=== PATIENT | female | born 1955 | race Hispanic/Latino ===

== ENCOUNTER 2020-02-01 09:15 | Emergency (ER) | payer OTHER, SELFPAY ==
--- NOTE | 2020-02-01 09:48 | RAD REPORT ---
EXAM DESCRIPTION: CT - Ct Stroke Brain Wo Cont - 02/01/2020 9:23 am CLINICAL HISTORY: right hemiplegia Headache, drowsiness, CVA symptomology COMPARISON: No comparisons TECHNIQUE: All CT scans are performed using dose optimization technique as appropriate and may inclu de automated exposure control or mA/KV adjustment according to patient size. FINDINGS: No intracranial hemorrhage, hydrocephalus or extra-axial fluid collection.No areas of brai n edema or evidence of midline shift. The paranasal sinuses and mastoids are clear. The calvarium is intact. IMPRESSION: No acute intracranial abnormality. If there is continued clinical concern for CVA, MR imaging of the brain would be recommended.
[2020-02-01 09:50] LABS: Protime INR 1.03
--- NOTE | 2020-02-01 09:52 | RAD REPORT ---
EXAM DESCRIPTION: CT - Head angio - 02/01/2020 9:38 am CLINICAL HISTORY: right corey Headache, drowsiness COMPARISON: Ct Stroke Brain Wo Cont dated 02/01/2020 TECHNIQUE: CT angiography of the head was performed with MIPs. All CT scans are performed using dose optimization technique as appropriate and may include automated exposure control or mA/KV adjustment according to patient size. FINDINGS: No evidence of aneurysm is detected. No flow-limiting stenosis or vascular malformation id entified. Antegrade flow is seen in the vertebral arteries. The vertebral arteries are codominant. The visualized dural venous sinuses are patent. IMPRESSION: No significant flow abnormality is detected.
[2020-02-01 09:53] LABS: Absolute Lymphocytes (CBC) 1.6 K/uL (0.7-4.9); Basophils % 0.7 % (0-1.3); Hematocrit 39.3 % (36.0-45.0); Lymphocytes % 25.2 % (15.3-44.8); MPV 10.3 fL (7.6-11.3)
--- NOTE | 2020-02-01 09:55 | RAD REPORT ---
EXAM DESCRIPTION: CT - Neck Angio - 02/01/2020 9:42 am CLINICAL HISTORY: right corey Headache, drowsiness COMPARISON: SOFT TISSUE NECK W CONTRAST dated 11/04/2014 TECHNIQUE: CT angiography of the neck vessels was performed with MIPs. All CT scans are performed using dose optimization technique as appropriate and may include automated exposure control or mA/KV adjustment according to patient size. FINDINGS: A motion degraded study is submitted. A left aortic arch is identified with normal three vessel configuration of the great vessels. No significant flow abnormality is seen of the common carotid bilaterally. Moderate narrowing is seen at the origin of the right external carotid artery. Mild plaquing is seen involving both proximal internal carotid arteries without hemodynamically signi ficant stenosis identified. Normal flow is seen within both vertebral arteries. Mild to moderate lower cervical degenerative changes are present with kyphosis. IMPRESSION: No significant carotid stenosis identified.
[2020-02-01 09:57] LABS: Albumin 3.3 g/dL (3.4-5.0); Bilirubin Total 0.3 mg/dL (0.2-1.0); Potassium 3.9 mmol/L (3.5-5.1); Protein, Total 7.6 g/dL (6.4-8.2)
[2020-02-01] MEDS ORDERED: TENECTEPLASE 50 MG/10 ML VIAL IV ONE (10:01)
[2020-02-01] MEDS ORDERED: NA CHLORIDE 0.9% 250 ML ONE (10:01)
[2020-02-01] MEDS ORDERED: ALTEPLASE 100 ML IV ONE (10:03)
--- NOTE | 2020-02-01 11:07 | ER ---
Nurse's Notes [facility] Name: Abigail Schaeffer Age: 64 yrs Sex: Female : 1955 Arrival Date: 02/01/2020 Time: 09:17 Bed 5 Private MD: Diagnosis: Acute Ischemic Stroke Presentation: 01/31 09:10 Chief complaint: EMS states: 30 minutes ago, coworkers noticed that patient's face was ss drooping on the R side and she began to slur her words. On arrival, pt has R sided facial droop, slurred speech and R sided weakness. Pt denies pain. Coronavirus screen: Proceed with normal triage. Patient denies a cough. Patient denies shortness of breath or difficulty breathing. Patient denies measured and/or subjective temperature greater than 100.4F prior to today's visit. Patient denies travel on a cruise ship or to a country the [facility]NOTE 3] currently lists as an affected area. Patient denies contact with known and/or suspected case of COVID-19. Ebola Screen: Patient denies exposure to infectious person. Patient denies travel to an Ebola-affected area in the 21 days before illness onset. Initial Sepsis Screen: Does the patient meet any 2 criteria? No. Patient's initial sepsis screen is negative. Does the patient have a suspected source of infection? No. Patient's initial sepsis screen is negative. Risk Assessment: Do you want to hurt yourself or someone else? Patient reports no desire to harm self or others. Onset of symptoms was February 01, 2020 at 08:40. 09:10 Method Of Arrival: EMS: [facility] 09:10 Acuity: AUGUSTO 1 18:05 Care prior to arrival: IV initiated. 20 GA, in the right antecubital area, Glucose ss check: 212. Historical: - Allergies: 09:45 Codeine; ss - Home Meds: 09:45 Insulin [Active]; ss - PMHx: 09:45 Diabetes - NIDDM; Hyperlipidemia; Hypertension; ss - PSHx: 09:45 ; ss - Immunization history:: Adult Immunizations up to date. - Social history:: Smoking status: Patient denies any tobacco usage or history of. Screenin:20 Patient has been NPO before screening. The patient exhibits slurred or garbled speech. ss The patient is exhibiting difficulty speaking. The patient is exhibiting difficulty understanding words. Yes, but is becoming more difficult The patient failed the bedside swallow screening. The patient will be kept NPO until cleared by Speech Therapy or Physician. Provider notified of bedside swallow screening results: Beto Garvey MD. Fall Risk No fall in past 12 months (0 pts). Secondary diagnosis (15 points) CVA, IV access (20 points). Ambulatory Aid- None/Bed Rest/Nurse Assist (0 pts). Gait- Normal/Bed Rest/Wheelchair (0 pts) Mental Status- Oriented to own ability (0 pts). 09:42 Abuse screen: Denies threats or abuse. Denies injuries from another. Nutritional ss screening: No deficits noted. Tuberculosis screening: Never had TB. VAN Screening: Arm Drift: Severe drift. Visual Disturbance: No visual disturbance noted. Aphasia: Neglect: No neglect noted. Assessment: 09:10 General: Appears uncomfortable, well groomed, Behavior is calm, cooperative, Denies ss fever, feeling ill, fatigue, chills. Pain: Denies pain. Neuro: Level of Consciousness is awake, alert, obeys commands, Oriented to person, place, time, situation, Youth Director are weak on right Weakness in left in right arm(s) Speech is slurred, Facial droop on right, Pupils are PERRLA. Cardiovascular: Heart tones S1 S2 present Capillary refill < 3 seconds is brisk in bilateral fingers Patient's skin is warm and dry. Respiratory: Airway is patent Respiratory effort is even, unlabored, Respiratory pattern is regular, symmetrical, Denies shortness of breath pain with respiration, pain with cough, pain with movement. GI: Patient currently denies abdominal pain, diarrhea, nausea, vomiting. : No signs and/or symptoms were reported regarding the genitourinary system. EENT: Oral mucosa is moist. Derm: Skin is intact, is healthy with good turgor, Skin is dry, Skin is pink, warm \T\ dry. normal. Musculoskeletal: Denies weakness in right arm and right leg. 09:42 Reassessment: Back from CT now. PT denies pain. Respirations even and unlabored. PT ss reports that she is having trouble swelling, but is not having trouble breathing. PT remains NPO. 10:10 Reassessment: NIHSS 11. Neuro: Level of Consciousness is awake, alert, Youth Director are weak ss on right Weakness in left in right Speech is slurred, Facial droop on right. 10:25 Reassessment: NIHSS 6. ss 10:40 Reassessment: NIHSS 3. General:. Respiratory: Airway is patent Respiratory effort is ss even, unlabored, Respiratory pattern is regular, symmetrical. Derm: Skin is pink, warm \T\ dry. normal. 11:00 Reassessment: [employer] at bedside. Report given NIHSS 3. Pt is smiling, states ss feeling better. Vital Signs: 09:25 Weight 56.25 kg (M); hb 09:43 BP 161 / 76; Pulse 84; Resp 16; Temp 98.2(TE); Pulse Ox 99% on R/A; Pain 0/10; ss 10:16 BP 150 / 73; Pulse 76; Resp 17; Pulse Ox 99% on R/A; Pain 0/10; ss 10:25 BP 168 / 72; Pulse 70; Resp 16; Pulse Ox 100% on R/A; Pain 0/10; ss NIH Stroke Scale Scores: 10:00 NIHSS Score: 10 ps1 10:23 NIHSS Score: 11 ss ED Course: 09:17 Patient arrived in ED. hb 09:17 Beto Garvey MD is Attending Physician. ps1 09:20 Patient has correct armband on for positive identification. Placed in gown. Bed in low ss position. Call light in reach. Side rails up X2. 09:24 Inserted saline lock: 18 gauge in right antecubital area, using aseptic technique. hb Blood collected. 09:24 Maintain EMS IV. Dressing intact. Good blood return noted. Site clean \T\ dry. Gauge \T\ hb site: 18 gauge in R AC. 09:25 CT Stroke Brain w/o Contrast In Process Unspecified. EDMS 09:43 Karla Merrill, CHERYL is Primary Nurse. ss 09:43 Arm band placed on right wrist. ss 09:[address] In Process Unspecified. EDMS 09:51 shotweld operator on. Pulse ox on. NIBP on. ss 09:53 Stroke CXR 1 View In Process Unspecified. EDMS 09:[address] In Process Unspecified. EDMS 09:56 EKG done, by durable medical equipment technician. reviewed by Beto Garvey MD. at1 10:19 Triage completed. ss 11:07 No provider procedures requiring assistance completed. Patient transferred, IV remains ss in place. Administered Medications: 10:10 Drug: Alteplase (Bolus for Stroke) - Activase 0.09 mg/kg {Co-Signature: ruiz (Melodie Hendrix RN).} Route: IV Thrombolytics; Infused Over: 1 mins; 10:10 Drug: Alteplase {Co-Signature: ruiz (Melodie Hendrix RN).} {Note: BOLUS 5.6mg, Infusion ss 45mg.} Route: IV Thrombolytics; Rate: calculated rate; Outcome: 11:05 Transferred by helicopter to [facility] form completed. ss 11:05 Condition: improved 11:05 Instructed on the need for transfer. 11:06 ER care complete, transfer ordered by MD. ps1 11:07 Patient left the ED. NIH Stroke Scale - NIH Stroke Score Date: 02/01/2020 Time: 10:00 Total Score = 10 1a. Level of Consciousness (LOC) - 0(Alert) 1b. Level of Consciousness (LOC) (Year \T\ Age) - 0(Both) 1c. LOC Commands (Open \T\ Closes Eyes/Kitchen And Counter Worker) - 0(Both) 2. Best Gaze (Lateral Gaze Paresis) - 0(Normal) 3. Visual Field Loss - 0(No visual loss) 4. Facial Palsy - 3(Complete paralysis) 5a. Left Arm: Motor (10-second hold) - 0(No drift) 5b. Right Arm: Motor (10-second hold) - 3(No effort against gravity) 6a. Left Leg: Motor (5-second hold - always test supine) - 0(No drift) 6b. Right Leg: Motor (5-second hold - always test supine) - 3(No effort against gravity) 7. Limb Ataxia (finger/nose \T\ heel/bustillos - test with eyes open) - 0(Absent) 8. Sensory Loss (pinprick arms/legs/face) - 0(Normal) 9. Best Language: Aphasia (description/naming/reading) - 0(No aphasia) 10. Dysarthria (speech clarity - read or repeat words) - 1(Mild to Moderate) 11. Extinction and Inattention (visual/tactile/auditory/spatial/personal) - 0(No abnormality) Initials: ps1 NIH Stroke Scale - NIH Stroke Score Date: 02/01/2020 Time: 10:23 Total Score = 11 1a. Level of Consciousness (LOC) - 0(Alert) 1b. Level of Consciousness (LOC) (Year \T\ Age) - 0(Both) 1c. LOC Commands (Open \T\ Closes Eyes/Kitchen And Counter Worker) - 0(Both) 2. Best Gaze (Lateral Gaze Paresis) - 0(Normal) 3. Visual Field Loss - 0(No visual loss) 4. Facial Palsy - 3(Complete paralysis) 5a. Left Arm: Motor (10-second hold) - 0(No drift) 5b. Right Arm: Motor (10-second hold) - 3(No effort against gravity) 6a. Left Leg: Motor (5-second hold - always test supine) - 0(No drift) 6b. Right Leg: Motor (5-second hold - always test supine) - 3(No effort against gravity) 7. Limb Ataxia (finger/nose \T\ heel/bustillos - test with eyes open) - 0(Absent) 8. Sensory Loss (pinprick arms/legs/face) - 0(Normal) 9. Best Language: Aphasia (description/naming/reading) - 0(No aphasia) 10. Dysarthria (speech clarity - read or repeat words) - 2(Severe) 11. Extinction and Inattention (visual/tactile/auditory/spatial/personal) - 0(No abnormality) Initials: Signatures: Dispatcher [employer] EDKarla Berry RN RN Kenna Potter, medical lab assistant EKG Tat1 Melodie Hendrix RN RN Beto Garvey MD MD ps1 Melodie melchor Corrections: (The following items were deleted from the chart) 10:25 09:20 NIHSS Score: 12 ss ss
--- NOTE | 2020-02-01 11:07 | EDPHYS ---
Physician Documentation [facility] Name: Abigail Schaeffer Age: 64 yrs Sex: Female : 1955 Arrival Date: 02/01/2020 Time: 09:17 Bed 5 Private MD: ED Physician Beto Garvey HPI: 01/31 09:22 This 64 yrs old Female presents to ER via EMS with complaints of stroke. 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 Not on NOAC. Right hemiplegia with face, UE, LE. Alert and oriented. Hx ps1 of HTN, DM. Was drinking and coughed, shortly thereafter had right facial droop. Coworkers called EMS. BS > 200. . Historical: - Allergies: 09:45 Codeine; ss - Home Meds: 09:45 Insulin [Active]; ss - PMHx: 09:45 Diabetes - NIDDM; Hyperlipidemia; Hypertension; ss - PSHx: 09:45 ; ss - Immunization history:: Adult Immunizations up to date. - Social history:: Smoking status: Patient denies any tobacco usage or history of. ROS: 09:22 Constitutional: Negative for fever, chills, and weight loss, Eyes: Negative for injury, ps1 pain, redness, and discharge, Cardiovascular: Negative for chest pain, palpitations, and edema, Respiratory: Negative for shortness of breath, cough, wheezing, and pleuritic chest pain, Abdomen/GI: Negative for abdominal pain, nausea, vomiting, diarrhea, and constipation. 09:22 Neuro: Positive for weakness, of the right cheek, right arm and right leg. Exam: 09:28 Constitutional: This is a well developed, well nourished patient who is awake, alert, ps1 and in no acute distress. Head/Face: Normocephalic, atraumatic. Eyes: Pupils equal round and reactive to light, extra-ocular motions intact. Lids and lashes normal. Conjunctiva and sclera are non-icteric and not injected. Chest/axilla: Normal chest wall appearance and motion. Nontender with no deformity. No lesions are appreciated. Cardiovascular: Regular rate and rhythm. No gallops, murmurs, or rubs. Normal PMI, no JVD. No pulse deficits. Respiratory: Lungs have equal breath sounds bilaterally, clear to auscultation and percussion. No rales, rhonchi or wheezes noted. No increased work of breathing, no retractions or nasal flaring. Abdomen/GI: Soft, non-tender, with normal bowel sounds. No distension or tympany. No guarding or rebound. No evidence of tenderness throughout. 09:28 Musculoskeletal/extremity: 09:28 Neuro: Cranial nerves: facial droop noted on right, Motor: Hypotonic in right leg and right arm. Vital Signs: 09:25 Weight 56.25 kg (M); hb 09:43 BP 161 / 76; Pulse 84; Resp 16; Temp 98.2(TE); Pulse Ox 99% on R/A; Pain 0/10; ss 10:16 BP 150 / 73; Pulse 76; Resp 17; Pulse Ox 99% on R/A; Pain 0/10; ss 10:25 BP 168 / 72; Pulse 70; Resp 16; Pulse Ox 100% on R/A; Pain 0/10; ss NIH Stroke Scale Scores: 10:00 NIHSS Score: 10 ps1 10:23 NIHSS Score: 11 ss MDM: 09:30 Patient medically screened. ps1 10:24 Differential diagnosis: CVA, TIA, paralysis, metabolic disorder. Data reviewed: vital ps1 signs, nurses notes, lab test result(s), radiologic studies, and as a result, I will give alteplase for stroke. Transfer [facility]. . Counseling: I had a detailed discussion with the patient and/or guardian regarding: the historical points, exam findings, and any diagnostic results supporting the discharge/admit diagnosis, lab results, radiology results, the need to transfer to another facility, for higher level of care. 01/31 09:18 Order name: CBC with Diff; Complete Time: 09:57 ps1 01/31 09:18 Order name: Protime (+inr); Complete Time: 10:03 ps1 01/31 09:18 Order name: Ptt, Activated; Complete Time: 10:03 ps1 01/31 09:18 Order name: CT Stroke Brain w/o Contrast; Complete Time: 10:57 ps1 01/31 09:18 Order name: CMP; Complete Time: 09:58 ps1 01/31 09:36 Order name: Glucose, Ancillary Testing; Complete Time: 09:42 EDMS 01/31 09:18 Order name: Stroke CXR 1 View ps1 01/31 09:18 Order name: EKG; Complete Time: 09:20 ps1 01/31 09:18 Order name: Accucheck; Complete Time: 09:51 ps1 01/31 09:18 Order name: Cardiac monitoring; Complete Time: 09:51 ps1 01/31 09:19 Order name: Head Angio CT; Complete Time: 09:56 ps1 01/31 09:19 Order name: Neck Angio CT; Complete Time: 10:12 ps1 01/31 09:18 Order name: EKG - Nurse/Tech; Complete Time: 10:16 ps1 01/31 09:18 Order name: IV Saline Lock; Complete Time: 09:51 ps1 01/31 09:18 Order name: Labs collected and sent; Complete Time: 09:51 ps1 01/31 09:18 Order name: NPO; Complete Time: 09:51 ps1 01/31 09:18 Order name: O2 Per Protocol; Complete Time: 09:51 ps1 01/31 09:18 Order name: O2 Sat Monitoring; Complete Time: 09:51 ps1 01/31 09:18 Order name: Stroke Swallow Screen; Complete Time: 09:51 ps1 Administered Medications: 10:10 Drug: Alteplase (Bolus for Stroke) - Activase 0.09 mg/kg {Co-Signature: hb (Melodie Hendrix RN).} Route: IV Thrombolytics; Infused Over: 1 mins; 10:10 Drug: Alteplase {Co-Signature: hb (Melodie Hendrix RN).} {Note: BOLUS 5.6mg, Infusion ss 45mg.} Route: IV Thrombolytics; Rate: calculated rate; Disposition: 02/01/20 11:06 Transfer ordered to [facility]. Diagnosis is Acute Ischemic Stroke. - Reason for transfer: Higher level of care. - Accepting physician is Kalpesh. - Condition is Serious. - Problem is new. - Symptoms have improved. NIH Stroke Scale - NIH Stroke Score Date: 02/01/2020 Time: 10:00 Total Score = 10 1a. Level of Consciousness (LOC) - 0(Alert) 1b. Level of Consciousness (LOC) (Year \T\ Age) - 0(Both) 1c. LOC Commands (Open \T\ Closes Eyes/Cattle Feeder) - 0(Both) 2. Best Gaze (Lateral Gaze Paresis) - 0(Normal) 3. Visual Field Loss - 0(No visual loss) 4. Facial Palsy - 3(Complete paralysis) 5a. Left Arm: Motor (10-second hold) - 0(No drift) 5b. Right Arm: Motor (10-second hold) - 3(No effort against gravity) 6a. Left Leg: Motor (5-second hold - always test supine) - 0(No drift) 6b. Right Leg: Motor (5-second hold - always test supine) - 3(No effort against gravity) 7. Limb Ataxia (finger/nose \T\ heel/bustillos - test with eyes open) - 0(Absent) 8. Sensory Loss (pinprick arms/legs/face) - 0(Normal) 9. Best Language: Aphasia (description/naming/reading) - 0(No aphasia) 10. Dysarthria (speech clarity - read or repeat words) - 1(Mild to Moderate) 11. Extinction and Inattention (visual/tactile/auditory/spatial/personal) - 0(No abnormality) Initials: ps1 NIH Stroke Scale - NIH Stroke Score Date: 02/01/2020 Time: 10:23 Total Score = 11 1a. Level of Consciousness (LOC) - 0(Alert) 1b. Level of Consciousness (LOC) (Year \T\ Age) - 0(Both) 1c. LOC Commands (Open \T\ Closes Eyes/Cattle Feeder) - 0(Both) 2. Best Gaze (Lateral Gaze Paresis) - 0(Normal) 3. Visual Field Loss - 0(No visual loss) 4. Facial Palsy - 3(Complete paralysis) 5a. Left Arm: Motor (10-second hold) - 0(No drift) 5b. Right Arm: Motor (10-second hold) - 3(No effort against gravity) 6a. Left Leg: Motor (5-second hold - always test supine) - 0(No drift) 6b. Right Leg: Motor (5-second hold - always test supine) - 3(No effort against gravity) 7. Limb Ataxia (finger/nose \T\ heel/bustillos - test with eyes open) - 0(Absent) 8. Sensory Loss (pinprick arms/legs/face) - 0(Normal) 9. Best Language: Aphasia (description/naming/reading) - 0(No aphasia) 10. Dysarthria (speech clarity - read or repeat words) - 2(Severe) 11. Extinction and Inattention (visual/tactile/auditory/spatial/personal) - 0(No abnormality) Initials: ss Signatures: Dispatcher [employer] Karla Forrest RN RN ss Beto Garvey MD MD ps1 Melodie Hendrix RN Corrections: (The following items were deleted from the chart) 11:07 11:06 02/01/2020 11:06 Transfer ordered to [facility]. Diagnosis is Acute Ischemic Stroke. Reason for transfer: Higher level of care. Accepting physician is Kalpesh. Condition is Serious. Problem is new. Symptoms have improved. ps1
--- NOTE | 2020-02-01 11:12 | RAD REPORT ---
EXAM DESCRIPTION: RAD - Chest Single View - 02/01/2020 9:49 am CLINICAL HISTORY: stroke Chest pain. COMPARISON: CHEST PA AND LAT 2 VIEW dated 11/07/2014; CHEST PA AND LAT 2 VIEW dated 01/13/2013 FINDINGS: Portable technique limits examination quality. The lungs are grossly clear. The heart is normal in size. No displaced fractures. IMPRESSION: No acute intrathoracic process suspected.
[2020-02-01 11:19] VITALS: TEMP 98.2; O2SAT 99
[2020-02-01 11:20] VITALS: BP 150/73
--- NOTE | 2020-02-01 11:35 | EKG ---
Test Date: 2020-02-01 Test Time: 09:49:16 Supervisor Electrolytic Tinning: LUISA MEASUREMENT RESULTS: Intervals: Rate: 81 KS: 178 QRSD: 98 QT: 410 QTc: 476 Bartlett: P: 71 KS: 178 QRS: -8 T: 68 INTERPRETIVE STATEMENTS: Sinus rhythm with fusion complexes Otherwise normal ECG Compared to ECG 12/20/2004 09:34:00 Fusion complex(es) now present Electronically Signed On 02-01-20 11:34:36 CDT by Jesse Berry
== END 2020-02-01 11:07 | disposition short-term general hospital (02) ==
LOC: ER 09:15
DX: I63.9 Cerebral infarction, unspecified (principal); R29.711 NIHSS score 11; I10 Essential (primary) hypertension; E11.9 Type 2 diabetes mellitus without complications; Z79.4 Long term (current) use of insulin; Z88.5 Allergy status to narcotic agent
CPT/HCPCS: 36415; 70450; 70496; 70498; 71045; 80053; 82947; 85025; 85610; 85730; 92977; 93005; 99291; 99292; J2997; J3101; J7030; Q9967

== ENCOUNTER 2021-06-12 09:39 | Emergency (ER) | payer BC, OTHER ==
--- OUTSIDE RECORDS SUMMARY | 2021-06-12 09:45 | XMS REPORT | Continuity of Care Document ---
:1955 Author Organization [facility] t Address [address] Levin [address] [place] [id number] Care Team Providers Name Role Phone Stacie Burrows Primary Care Physician Nila Olguin MD Attending Clinician [phone] Taurus LOTT Attending Clinician Zoltan Puckett MD Attending Clinician Radha Attending Clinician Unavailable NILA OLGUIN Attending Clinician Unavailable Mitchel Attending Clinician Unavailable Tim LOTT Attending Clinician Osbaldo LOTT Attending Clinician Vandana Martin MD Attending Clinician [phone] Seymour LOTT Attending Clinician SEYMOUR Attending Clinician Unavailable VANDANA MARTIN Attending Clinician Unavailable Darnell BERGER Attending Clinician Unavailable NILA OLGUIN Admitting Clinician Unavailable SEYMOUR Admitting Clinician Unavailable VANDANA MARTIN Admitting Clinician Unavailable BAY BROOKS Admitting Clinician Unavail able Payers Payer Name Policy Type Policy Number Effective Date Expiration Date S ource Problems Condition Condition Condition Status Onset Resolution Last Treating Co mments Source Name Details Category Date Date Treatment Clinician Date Unruptured Unruptured Disease Active [facility] cerebral cerebral 2-25 [facility] aneurysm aneurysm 00:00: Medica l 00 Center Cerebral Cerebral Disease [facility] - nonrupture nonrupture 00:00: Me dical d d 00 Center Acute Acute Disease Active [facility] respirator respirator 5-06 Brenda kes - y failure y failure 00:00: Medi rosey with with 00 Center hypoxia hypoxia Stroke Stroke Disease Active [facility] (cerebrum) (cerebrum) 5-05 [facility] k[facility] - 00:00: Medical 00 Center Acute Acute Disease Active [facility] ischemic ischemic 5-05 [facility] - stroke stroke 00:00: Medical 00 [place] Received Received Disease Active [facility] intravenou intravenou 5-05 [facility] kes - s tissue s tissue 00:00: Medica l plasminoge plasminoge 00 Ce nter n n activator activator (tPA) in (tPA) in emergency emergency department department Essential Essential Disease Active [facility] hypertensi hypertensi 5-05 Bren[facility] kes - on on 00:00: Medical 00 [place] Type 2 DM Type 2 DM Disease Active [facility] with with 5-05 [facility] - diabetic diabetic 00:00: Medica l neuropathy neuropathy 00 Ce nter affecting affecting both sides both sides of body of body Cerebral Cerebral Disease Active [facility] hypoperfus hypoperfus 5-05 [facility] - ion ion 00:00: Medical 00 Center Cerebral Cerebral Disease Active [facility] edema edema 5[facility]05 [facility] - 00:00: Medical 00 Center Allergies, Adverse Reactions, Alerts Allergy Allergy Status Severity Reaction(s) Onset Inactive Treating Comm ents Source Name Type Date Date Clinician Codeine Drug Active Nausea And GI Upset [facility] Allergy Vomiting, 5-05 [facility] - Other (See 00:00: Medica l Comments) 00 Center Social History Social Habit Start Date Stop Date Quantity Comments Source History SDOH [facility] - Alcohol Std Drinks Medica l Center History SDOH [facility] - Alcohol Binge Medical Celia ter History SDOH [facility] - Alcohol Comment Medical C enter Alcohol intake 2020-11-27 2020-11-[address] [facility] - 00:00:00 00:00:00 non-drinker of Medical Ce nter alcohol (finding) Tobacco use and 2020-02-01 2020-02-[address] [facility] [address] Brenda kes - exposure 00:00:00 00:00:00 Medical Center History SDOH 2020-02-01 2020-02-[address] [facility] - Alcohol Frequency 00:00:00 00:00:00 Medical Center Sex Assigned At [address] [facility]da kes - 00:00:00 00:00:00 Medical Center Smoking Status Start Date Stop Date Source Never smoker [facility] Medications Ordered Filled Start Stop Current Ordering Indication Dosage Frequency Signature Comments Components Source Medication Medication Date Date Medication? Clinician (SIG) Name Name glucosamine 1{tbl} [id number] Take [address] [facility] [address] -chondroiti 2-23 11- [id number] tablet by [facility] - n 500-400 09:04: 00:00 3D mouth 3 Medi rosey mg tablet 47 :00 (three) Center times daily. aspirin 81 2020- No 325mg QD Take [address] [facility] MG chewable -23 04- tablets Luke [facility] - tablet 00:00: 23:59 (325 mg Medical 00 :00 total) by Center mouth daily. amLODIPine No 5mg QD Take [address] [facility] (NORVASC) 5 -23 04- tablet (5 Brenda kes - MG tablet 00:00: 23:59 mg total) Me dical 00 :00 by mouth Center daily This is a medicine for high blood pressure. clopidogreL 2020- No 75mg Take [address] [facility] (PLAVIX) 75 7-24 11- tablet (75 L ukes - mg tablet 00:00: 00:00 mg total) Me dical 00 :00 by mouth Center every other day. glipiZIDE 2019- Yes 2.5mg Take 0.[address] (GLUCOTROL) 5-29 tablets [facility] - 5 MG tablet 00:00: (2.5 mg Med ical 00 total) by Center mouth every morning before breakfast. fLUoxetine Yes 20mg QD Take 1 [facility] (PROZAC) 20 5-29 capsule [facility] - MG capsule 00:00: (20 mg Medic al 00 total) by Center mouth daily Neuromotor recovery/m ood. clopidogreL No 75mg QD Take [address] [facility] [address] (PLAVIX) 75 5-29 05-29 tablet (75 L ukes - mg tablet 00:00: 23:59 mg total) Me dical 00 :00 by mouth Center daily. atorvastati Yes 80mg QD Take 1 [facility] n (LIPITOR) 5-28 tablet (80 Brenda kes - 80 MG 00:00: mg total) Medical tablet 00 by mouth Center nightly. TRULICITY No 1.5mg Q7D Inject 1.5 [facility] 1.5 mg/0.5 01-02-23 mg [facility] - mL PnIj 00:00: 00:00 subcutaneo Med ical 00 :00 usly once Center a week. Vital Signs Vital Name Observation Time Observation Value Comments Source Systolic blood 2020-11-23 17:23:00 148 mm[Hg] [facility] Diastolic blood 2020-11-23 17:23:00 61 mm[Hg] [facility] S t [facility] Heart rate 2020-11-23 17:23:00 66 /min [facility] Respiratory rate 2020-11-23 17:23:00 18 /min [facility] Oxygen saturation in 2020-11-23 14:15:00 97 /min [facility] - Arterial blood by Medical Ce nter Pulse oximetry Body temperature 2020-11-23 14:00:00 36.5 Tram [facility] Body height 2020-11-23 08:05:00 162.6 cm [facility] Body weight 2020-11-23 08:05:00 55.339 kg [facility] BMI 2020-11-23 08:05:00 20.94 kg/m2 [facility] Procedures Procedure Date / Time Performed Performing Clinician Jami lovell [place] CEREBRAL 4 VESSEL 2020-11-23 13:55:[address] [facility] - ANGIOGRAM [facility] PROCEDURE DONE OUTSIDE 2020-11-23 09:30:00 Virtual, Surgeon [facility] OR [facility] BASIC METABOLIC PANEL 2020-11-23 08:53:[address] [facility] - (7) [facility] CBC W/PLT COUNT & AUTO 2020-11-23 08:53:00 Kamala Thompson [facility] DIFFERENTIAL [facility] PT/APTT 2020-11-23 08:53:00 Kamala Thompson [facility] CBC W/PLT COUNT & AUTO 2020-11-23 08:53:00 [facility] ECG 12-LEAD 2020-11-23 08[facility]37:[facility] 2020-11-23 08:37:51 Unknown, Hl7 Doctor [facility] Plan of Care Planned Activity Planned Date Details Comments Source Future Scheduled 2023-02-[address] [facility] - Test 00:00:00 (procedure) [code = [facility] 93899214] Future Scheduled 2021-05-30 INFLUENZA VACCINE (#1) [facility] Test 00:00:00 [code = INFLUENZA Medical nter VACCINE (#1)] Future Scheduled 2021 PNEUMOCOCCAL 65+ YRS [facility] - Test 00:00:00 (1 of 1 - [facility] [id number] PCV13) [code = PNEUMOCOCCAL 65+ YRS (1 of 1 - [id number] PCV13)] Future Scheduled 2020-09-[address] [facility] - Test 00:00:00 (12+) [code = Medical Center DEPRESSION SCREENING (12+)] Future Scheduled 2020-09-29 FALLS RISK SCREENING [facility] - Test 00:00:00 [code = FALLS RISK Medical C enter SCREENING] Future Scheduled 2020-08-[address] Brenda kes - Test 00:00:00 measurement [facility] (procedure) [code = 34372102] Future Scheduled 2006 SHINGLES VACCINES ([address] [facility] - Test 00:00:00 of 2) [code = SHINGLES Medic al Center VACCINES (1 of 2)] Future Scheduled [address] [facility] - Test 00:00:00 [facility] cervix (procedure) [code = 857539511] Future Scheduled 1975 DTAP/TDAP/TD VACCINES [facility] - Test 00:00:00 (1 - Tdap) [code = Medical C enter DTAP/TDAP/TD VACCINES (1 - Tdap)] Future Scheduled 1974 HEPATITIS C SCREENING [facility] - Test 00:00:00 [code = HEPATITIS C Medical Center SCREENING] Future Scheduled 1968 COVID-19 VACCINE (1) [facility] - Test 00:00:00 [code = COVID-[address] VACCINE (1)] Future Scheduled [address] DIABETIC EYE EXAM [facility] - Test 00:00:00 [code = DIABETIC EYE Medical Center EXAM] Future Scheduled [address] [facility] - Test 00:00:00 examination Medical Center (regime/therapy) [code = 924834460] Future Scheduled 1966 Urine screening for [facility] - Test 00:00:00 protein (procedure) Medical Center [code = 045153527] Future Scheduled [address] [facility] - Test 00:00:00 malignant [facility] breast (procedure) [code = 772743951] Future Scheduled [address] [facility] - Test 00:00:00 malignant [facility] colon (procedure) [code = 729215946] Encounters Start End Encounter Admission Attending Care Care Encounter Source Date/Time Date/Time Type Type Clinicians Facility Department ID 2020-11-23 2020-11-23 Hospital Tim [facility] [id number] 07:39:00 18:00:00 Encounter Ezequiel junior [facility] 2020-11-23 2020-11-23 Anesthesia Taurus Kyle [facility] [id number] 13:05:00 14:01:00 Event Tommie Puckett [facility] 2020-11-232020-11-23 Surgery Virtual, [facility] [id number] [facility] 09:30:00 10:30:00 Surgeon [facility] 2020-11-23 2020-11-23 Orders [place], [facility] [id number] 00:00:00 00:00:00 Only Danyel [facility] 2020-11-23 2020-11-23 Travel [facility] [id number] [facility] 00:[facility]00 00:00:00 [facility] 2020-11-23 2020-11-23 Orders [facility] [id number] 00:00:00 00:00:00 Only [facility] 2020-11-21 2020-11-21 Hospital [facility] [id number] 16:24:50 23:59:00 Encounter [facility] 2020-11-21 2020-11-21 Travel [facility] [id number] [facility] 00:[facility]:00 00:00:00 [facility] 2020-11-16 2020-11-16 Hospital [facility] [id number] 23:59:00 23:59:00 Encounter [facility] 2020-11-03 2020-11-03 Office Tim [facility] [id number] 10:04:27 12:07:15 Visit Ezequiel AMBULATOR [id number] Y 0.2.7.2.686 [id number] 2020-11-03 2020-11-03 Outside [facility] [id number] 00:00:00 00:00:00 Orders [facility] 2020-09-13 2020-09-13 Office Osbaldo [facility] [id number] 12:51:55 13:11:55 Visit Vickie AMBULATOR [id number] Y 0.2.7.2.686 [id number] 2020-08-09 2020-08-09 Office JAE Roblero [id number] 13:01:44 15:04:29 Visit Vickie AMBULATOR 350.1.13.21 Y 0.2.7.2.686 [id number] 2020-07-17 2020-07-17 Office JAE Martin [id number] 13:29:28 14:58:52 Visit Rick AMBULATOR 350.1.13.21 Oghenemine Y 0.2.7.2.686 [id number] 2020-05-15 2020-05-15 Office JAE Ahuja [id number] 09:50:43 11:46:47 Visit Kel AMBULATOR 350.1.13.21 Y 0.2.7.2.686 [id number] 2020-05-01 2020-05-01 Office Mario Sánchez [id number] 12:16:12 13:49:22 Visit Rick AMBULATOR 350.1.13.21 Oghenemine Y 0.2.7.2.686 [id number] 2020-03-16 2020-03-16 Office JAE Ahuja [id number] 11:22:59 14:01:34 Visit Kel AMBULATOR 350.1.13.21 Y 0.2.7.2.686 [id number] Results Test Description Test Time Test Comments Results Result [facility] Comments [place], ANGIOGRAM, 2020-11-28 Reason for CEREBRAL 18:42:00 Exam:->cerebra l [facility] esia:->None CENTERName: MAHAD KELLY : 1955 Sex: F FINAL REPORT Date of Procedure: 11/23/2020 Surgeon: STEFFI GuzmánAssistant: Ashutosh Flores MD Pre-operative diagnosis: Unruptured left paraophthalmic aneurysm status-post flow diversion embolizationPost-operat bennett diagnosis: Unruptured left paraophthalmic aneurysm without residual following flow diversion embolization Procedure: 1. Diagnostic cerebral angiogram2. Ultrasound guided right radial access Vessels catheterized:1. Right radial artery2. Left common carotid artery Devices Employed:1. 5 Frisian sheath2. Stephenson 2 diagnostic catheter3. Terumo glide wire4. 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 She presents for diagnostic cerebral angiogram to evaluate for potential residual. Procedure in Detail:Following explanation of the benefits, risks and alternatives for the procedure, informed consent was obtained from the patient. The risks including but not limited to stroke, intracranial hemorrhage, vascular injury to the cervical or access vessels were discussed. A time-out was performed. The right wrist and both groins were prepped in the usual sterile fashion using Chloraprep, and sterilely draped. Access was initiated at the right distal radial artery under fluoroscopic and ultrasound guidance and a 5 slender sheath was placed. A still frame from the ultrasound guided puncture was uploaded into the patients medical record. A radial cocktail of heparin, lidocaine, verapamil, and saline was slowly injected through the sheath to prevent vasospasm and promote vasodilatation. A 5Fr Stephenson 2 glide diagnostic catheter was introduced and brought into the aortic arch under fluoroscopic guidance. The diagnostic catheter was used to catheterize the left common carotid artery. Upon each successive selective catheterization, digital subtraction angiography using the appropriate rate and volume of contrast in multiple projections was performed. After adequate visualization of all vessels all sheaths and catheters were removed and a Prelude band was used for radial hemostasis. The patient was transported to the recovery room in stable condition. Findings:RIGHT RADIAL ARTERY:DSA in the AP views of the right radial artery demonstrate normal flow and branching patterns without areas of stenosis. LEFT COMMON CAROTID ARTERY, INTRACRANIAL:The catheter was used to select the left common carotid artery. DSA in the AP, lateral, and magnified views of the intracranial circulation were performed. The flow diverting the left internal carotid artery from the communicating segment, across the neck of the previously seen paraophthalmic aneurysm, and into the cavernous segment. The stent is patent and is in stable position from its initial deployment on 04/21/2020. There is no visualized residual paraophthalmic internal carotid artery aneurysm. There is a small, wide based outpouching on the inferior aspect of the cavernous carotid artery at the proximal segment of the stent. This is slightly larger than on the prior angiogram dated 04/21/2020 and now measures 2.0 mm by 6.4 mm (depth x width), but likely represents atherosclerotic change. Otherwise, the intracranial segments of the internal carotid artery are normal in caliber and contour. There is atherosclerotic disease of patient's left M1 segment which is improved from her angiogram dated 02/01/2020. Otherwise, the middle cerebral artery and its branch vessels are normal in caliber and contour. The anterior cerebral artery is normal caliber and contour. There is no flow seen across the anterior communicating artery. 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 The posterior communicating artery is not visualized. No evidence of aneurysm, vascular malformation, arteriovenous shunting. Dynamic imaging demonstrates a normal capillary phase. The intracranial venous structures opacify appropriately and appear patent. Summary of Findings 1. There is expected post-treatment changes following flow diversion embolization of the left paraophthalmic internal carotid artery aneurysm. The stent is widely patent and there is no evidence of residual aneurysm. 2. There is a small outpouching of the inferior aspect of the cavernous carotid artery at the proximal segment of the stent that has slightly increased in size from her last angiogram on 04/21/2020. This now measures 2.0 mm x 6.4 mm (depth x width), but considering the location and appearance is more likely related to atherosclerotic change than aneurysmal dilatation. 3. Patient's previously noted intracranial atherosclerotic disease of her left middle cerebral artery has improved from her initial angiogram dated 02/01/2020. Signed: Ezequiel Olguin MDReport Verified Date/Time: 11/28/2020 18:42:24 Reading Location: [facility] Y026 Neuro Angio Reading Room Basic Metabolic Panel 2020-11-23 09:46:00 Test Item Value Reference Range Interpretation Comme nts Sodium (test code = 141 meq/L 501-802 2711-2) Potassium (test code = 3.6 meq/L 3.5-5.1 2823-3) Chloride (test code = 104 meq/L 98-107 2075-0) CO2 (test code = 2027-9) 27 meq/L 22-29 BUN (test code = 3094-0) 20 mg/dL 7-21 Creatinine (test code = 0.84 mg/dL 0.57-1.25 2160-0) Glucose (test code = 142 mg/dL 70-105 H 2345-7) Calcium (test code = 8.8 mg/dL 8.4-10.2 23908-5) EGFR (test code = 23819-5) 68 mL/min/1.73 sq m ESTIMATED GFR IS NOT ACCURATE CREATININE KAREN PJ IN PREDICTING GLOMERULAR FILT RATION RATE. ESTIMATED GFR IS NOT APPLICAB LE FOR DIALYSIS PATIEN ANASTACIA (test code = ANASTACIA) Corrosion Engineer ID - [id number] Lab Interpretation (test Abnormal code = 65945-4) [facility] [id number] 09:46:00 Test Item Value Reference Range Interpretation Comments SODIUM (BEAKER) 141 meq/L 136-145 (test code = 381) POTASSIUM (BEAKER) 3.6 meq/L 3.5-5.1 (test code = 379) CHLORIDE (BEAKER) 104 meq/L 98-107 (test code = 382) CO2 (BEAKER) (test 27 meq/L 22-29 code = 355) BLOOD UREA NITROGEN 20 mg/dL 7-21 (BEAKER) (test code = 354) CREATININE (BEAKER) 0.84 mg/dL 0.57-1.25 (test code = 358) GLUCOSE RANDOM 142 mg/dL 70-105 H (BEAKER) (test code = 652) CALCIUM (BEAKER) 8.8 mg/dL 8.4-10.2 (test code = 697) EGFR (BEAKER) (test 68 mL/min/1.73 ESTIMA CORNELIUS GFR IS code = 1092) sq m NOT ACCURATE CREATININE CLEARANCE IN PREDICTING GLOMERULAR FILTRATION RATE . ESTIMATED GFR I S NOT APPLICABLE FOR DIALYSIS PATIEN FLAVIA. Corrosion Engineer ID - [id number]/[id number] 09:34:00 Test Item Value Reference Interpretation Comments Range Protime (test code = 13.8 See_Comment [Autom ated 5902-2) message] The system which generated this result transmitted reference range : 11.9 - 14.2 seconds. The reference range was not used to interpret this result as normal/abnormal . INR (test code = 1.09 See_Comment [Automated 6371-6) message] The system which generated this result transmitted reference range : <=5.90. The reference range was not used to interpret this result as normal/abnormal . PTT (test code = 32.6 See_Comment [Automated 16313-7) message] The system which generated this result transmitted reference range : 22.5 - 36.0 seconds. The reference range was not used to interpret this result as normal/abnormal . ANASTACIA (test code = Effective 02/24/2019: ANASTACIA) PT Reference Range ChangeNew: 11.9-14.2 Previous: 11.7-14.7 RECOMMENDED COUMADIN/WARFARIN INR THERAPY RANGESSTANDARD DOSE: 2.0-3.0 Includes: PROPHYLAXIS for venous thrombosis, systemic embolization; TREATMENT for venous thrombosis and/or pulmonary embolus.HIGH RISK: Target INR is 2.5-3.5 for patients wiht mechanical heart valves. Lab Interpretation Normal (test code = 63923-4) [id number] 09:34:00 Test Item Value Reference Range Interpretation Comments PROTIME (BEAKER) (test 13.8 seconds 11.9-14.2 code = 759) INR (BEAKER) (test 1.09 See_Comment [Automat ed code = 370) message] The sy stem which generated this result transmitted reference range : <=5.90. The reference range was not used to interpret this result as normal/abnormal . PARTIAL THROMBOPLASTIN 32.6 seconds 22.5-36.0 TIME (BEAKER) (test code = 760) Effective 02/24/2019: PT Reference Range ChangeNew: 11.9-14.2 Previous: 11.7- 14.7RECOMMENDED COUMADIN/WARFARIN INR THERAPY RANGESSTANDARD DOSE: 2.0-3.0 Includes: PROPHYLAXIS for venous thrombosis, systemic embolization; TREATMENT for venous thrombosis and/or pulmonary embolus.HIGH RISK: Target INR is2.5-3.5 for patients wiht mechanical heart valves.CBC with platelet count + automated [id number] 09:24:00 Test Item Value Reference Range Interpretation Comments WBC (test code = 6690-2) 7.2 See_Comment [A utomated message] The system [employer] generated this result transmitted ref erence range: 3.5 - 10 .5 K/L. The refe rence range was not u sed to interpret this result as normal/abnor mal. RBC (test code = 789-8) 3.95 See_Comment [Au tomated message] The system [employer] generated this result transmitted ref erence range: 3.93 - 5 .22 M/L. The refe rence range was not u sed to interpret this result as normal/abnor mal. MCHC (test code = 786-4) 30.9 See_Comment L [A utomated message] The system [employer] generated this result transmitted ref erence range: 32.2 - 3 5.5 GM/DL. The refe rence range was not u sed to interpret this result as normal/abnor mal. Hematocrit (test code = 35.0 % 34.1-44.9 4544-3) MCV (test code = 787-2) 88.6 fL 79.4-94.8 MCH (test code = 785-6) 27.3 pg 25.6-32.2 RDW (test code = 788-0) 14.5 % 11.7-14.4 H Platelets (test code = 213 See_Comment [Aut omated message] 707-3) The system [employer] generated this result transmitted ref erence range: 150 - 45 0 K/CU MM. The referen ce range was not u sed to interpret this result as normal/abnor mal. MPV (test code = 12.1 fL 9.4-12.3 51417-6) nRBC (test code = 413) 0 See_Comment [Aut omated message] The system [employer] generated this result transmitted ref erence range: 0 - 0 /1 00 WBC. The refere nce range was not u sed to interpret this result as normal/abnor mal. % Neutros (test code = 63 % 429) % Lymphs (test code = 26 % 430) % Monos (test code = 7 % 431) % Eos (test code = 432) 3 % % Baso (test code = 437) 0 % # Neutros (test code = 4.50 See_Comment [Aut omated message] 670) The system [employer] generated this result transmitted ref erence range: 1.56 - 6 .13 K/L. The refe rence range was not u sed to interpret this result as normal/abnor mal. # Lymphs (test code = 1.89 See_Comment [Auto mated message] 414) The system [employer] generated this result transmitted ref erence range: 1.18 - 3 .74 K/L. The refe rence range was not u sed to interpret this result as normal/abnor mal. # Monos (test code = 0.50 See_Comment H [Autom ated message] 415) The system [employer] generated this result transmitted ref erence range: 0.24 - 0 .36 K/L. The refe rence range was not u sed to interpret this result as normal/abnor mal. # Eos (test code = 416) 0.24 See_Comment [Au tomated message] The system [employer] generated this result transmitted ref erence range: 0.04 - 0 .36 K/L. The refe rence range was not u sed to interpret this result as normal/abnor mal. # Baso (test code = 417) 0.03 See_Comment [A utomated message] The system [employer] generated this result transmitted ref erence range: 0.01 - 0 .08 K/L. The refe rence range was not u sed to interpret this result as normal/abnor mal. Immature 0 % 0-1 Granulocytes-Relative (test code = 2801) Lab Interpretation (test Abnormal code = 11266-9) [facility] W/PLT COUNT & AUTO [id number] 09:24:00 Test Item Value Reference Range Interpretation Comments WHITE BLOOD CELL COUNT (BEAKER) 7.2 K/ L 3.5-10.5 (test code = 775) RED BLOOD CELL COUNT (BEAKER) 3.95 M/ L 3.93-5.22 (test code = 761) HEMOGLOBIN (BEAKER) (test code = 10.8 GM/DL 11.2-15.7 L 410) HEMATOCRIT (BEAKER) (test code = 35.0 % 34.1-44.9 411) MEAN CORPUSCULAR VOLUME (BEAKER) 88.6 fL 79.4-94.8 (test code = 753) MEAN CORPUSCULAR HEMOGLOBIN 27.3 pg 25.6-32.2 (BEAKER) (test code = 751) MEAN CORPUSCULAR HEMOGLOBIN CONC 30.9 GM/DL 32.2-35.5 L (BEAKER) (test code = 752) RED CELL DISTRIBUTION WIDTH 14.5 % 11.7-14.4 H (BEAKER) (test code = 412) PLATELET COUNT (BEAKER) (test 213 K/CU MM 150-450 code = 756) MEAN PLATELET VOLUME (BEAKER) 12.1 fL 9.4-12.3 (test code = 754) NUCLEATED RED BLOOD CELLS 0 /100 WBC 0-0 (BEAKER) (test code = 413) NEUTROPHILS RELATIVE PERCENT 63 % (BEAKER) (test code = 429) LYMPHOCYTES RELATIVE PERCENT 26 % (BEAKER) (test code = 430) MONOCYTES RELATIVE PERCENT 7 % (BEAKER) (test code = 431) EOSINOPHILS RELATIVE PERCENT 3 % (BEAKER) (test code = 432) BASOPHILS RELATIVE PERCENT 0 % (BEAKER) (test code = 437) NEUTROPHILS ABSOLUTE COUNT 4.50 K/ L 1.56-6.13 (BEAKER) (test code = 670) LYMPHOCYTES ABSOLUTE COUNT 1.89 K/ L 1.18-3.74 (BEAKER) (test code = 414) MONOCYTES ABSOLUTE COUNT (BEAKER) 0.50 K/ L 0.24-0.36 H (test code = 415) EOSINOPHILS ABSOLUTE COUNT 0.24 K/ L 0.04-0.36 (BEAKER) (test code = 416) BASOPHILS ABSOLUTE COUNT (BEAKER) 0.03 K/ L 0.01-0.08 (test code = 417) IMMATURE GRANULOCYTES-RELATIVE 0 % 0-1 PERCENT (BEAKER) (test code = 2801) MR, SPINE, LUMBAR, WITHOUT [id number] 17:38:00Unlisted Reason for Exam - Click Yes and Enter Reason Below->YesUnlisted Reason for Exam->DDD ( degenerative disc disease), lumbar;Lumbar radicular painFINAL REPORT MR, SPINE, LUMBAR, WITHOUT CONTRAST INDICATION: Unlisted Reason for Exam COMPARISON: None TECHNIQUE: Multiplanar, multisequence MR images of the lumbar spine withoutcontrast. FINDINGS: Numbering: Last fully formed disc space is designated L5-S1. Spinal cord: The conus medullaris is normal is size, signal intensity, and position, terminating at the T12-L1 level. Osseous structures: No scoliotic deformity or spondylolisthesis is present. Loss of lumbar lordosismay be positional. Vertebral body heights are preserved. There is no evidence of fracture or aggressive osseous lesion. Discs: There is multilevel disc dessication without loss of disc space height. Evaluation of the individual levels demonstrates: L1/L2: No disc herniation, spinal canal stenosis, orneural foraminal narrowing. L2/L3: Broad posterior disc bulge. Mild canal narrowing. No foraminal compromise. L3/L4: No disc herniation, spinal canal stenosis, or neural foraminal narrowing. L4/L5: No disc herniation, spinal canal stenosis, or neural foraminal narrowing. L5/S1: Epidural lipomatosis anastacia rows the canal at this level without foraminal compromise. Paraspinal soft tissues: Paraspinal soft tissues and visible retroperitoneal structures are unremarkable. IMPRESSION: Straightening of normallumbar lordosis may be positional. Advanced tapering of the thecal sac at L5-S1 due to epidural lipom atosis without foraminal compromise. Signed: JR Rowley Robert MDReport Verified Date/Time: 06/02/2020 17:38:14 NIR, EMBOLIZATION, [id number] 16:08:00Reason for Exam:->I67.1FINAL REPORT Date of Procedure: April 21, 2020 Surgeon: Lg Tavaresistant: Mark Potter MD Pre-operative diagnosis: L superior hypophyseal aneurysmPost- operative diagnosis: L superior hypophyseal aneurysm Procedure: Diagnostic angiography of the left common and internal carotid artery s/p flow diversion with CHITRA stentAnesthesiologist: per anesthesia recordsAnesthesia Type: General Complications: None Indication for procedure:65F with 5.5mm unruptured superior hypophyseal aneurysm that causes the patient anxiety Procedure in Detail: AngiogramFollowing explanation of the benefits, risks and alternatives for the procedure, informed consent was obtained from thepatient. The risks including but not limited to stroke, intracranial hemorrhage, vascular injury tothe cervical or access vessels were discussed. A time-out was performed. Both groins and wrists were prepped in the usual sterile fashion using Chloroprep, and sterilely draped. Access was initiated at the right femoral artery and using coaxial technique and fluoroscopic guidance an Infinity plus long sheath brought up into the proximal descending aorta was placed and maintained on heparinized flush. A VTK diagnostic catheter was introduced and brought into the aortic arch under fluoroscopic guidance. The diagnostic catheter was used to catheterize the left common carotid artery. A common carotidrun was performed and then used as a roadmap. A glidewire and coaxial technique was used to bring the long sheath into the internal carotid artery for angiography. The L ICA angiogram showed a 5.5mm x 4mm saccular superior hypophyseal aneurysm. Three- dimensional imaging was also performed and images processed on an independent workstation. Endovascular InterventionUsing the 3D reconstruction and the2D angiograms for measurements a CHITRA 27 flow diverter (4mm x 18/12mm). Through the infinity long sheath a triaxial setup was introduced for deployment of the stent. A Delmont Catalyst 5 intermediate catheter, Headway 27 microcatheter and 0.014 synchro microwire were introduced into the long sheath and brought into the internal carotid artery. The microcatheter was advanced into the choroidal segmentof the ICA. The CHITRA flow diverter was then introduced into the triaxial system and brought up. The CHITRA was unsheathed beginning just distal to the duplicated anterior choridal arteries. The Device was slowly unsheathed and brought down just proximal to the anterior choridal origins. The proximal endof the flow diverter ends in the middle of the horizontal cavernous segment. A control angiogram demonstrates appropriate deployment of the stent across the entirety of the neck of the aneurysm, continued flow through the opthalmic artery and duplicated anterior choroidals, and mild stasis in the aneurysmal pouch. No evidence for in-stent thrombosis. There was no change in the intracranial flow through the left ICA injection when compared to the diagnostic injection. At this time the procedure was concluded and all sheaths and catheters were removed and the femoral arteriotomy was closed with a 6F angio seal device. The patient was extubated and taken to the neuro ICU in stable condition. Findings: Right Femoral Artery (AP and Lateral)-The sheath enters above the femoral bifurcation. The femoral artery and bifurcation are widely patent without evidence of ulceration or stenosis. Left Common Carotid Artery (AP, Lateral,)-The origins of the left internal and external carotid arteries are widely patent without evidence of ulceration or stenosis. Left Internal Carotid Artery (AP, Lateral, 3D) -Thecervical carotid artery is patent without areas of stenosis, dissection or ulceration; and is without branches-The petrous carotid artery is patent without areas of stenosis, dissection or ulceration the mandibulovidian nerve is not visualized, no petrosal segment aneurysms-The cavernous carotid artery is patent without areas of stenosis, dissection, or ulceration, meningohypophyseal trunk and inferolateral trunks are not visualized, there are no cavernous segment aneurysms-The supraclinoidal carotid artery, the opthalmic, communicating, and choroidal segments are patent without areas of stenosis.In the opthalmic segment there is a inferomedially projecting 5.5x4 mm saccular aneurysm consistent with a superior hypophyseal artery aneurysm. Post treatment the aneurysm is completely covered by theflow diverting aspect of the stent and demonstrates mild stasis. The posterior communicating artery is not visualized and there is a duplicated anterior choridal artery. The A1 and M1 segments are visualized and are without stenosis or vasospasm. -The LUDWIN fill physiologically throughout their territory without cross-filling across the anterior communicating artery . There is no noted stenosis or vaso spasm noted within its branches. There are no noted aneurysms of the pericallosal or supramarginal branches. There is no evidence of arteriovenous shunting -The MCA's fill physiologically throughout their territory there is no noted stenosis, occlusion or vasospasm noted within its branches. -The capi llary and venous phases are normal Summary of Findings 1. Successful flow diversion of left superior hypophyseal aneurysm demonstrating mild stasis in the treated aneurysm post CHITRA deployment2. No radiologic or clinical evidence of complication Signed: Kel Ahujaeport Verified Date/Time: 04/26/2020 16:08:42 Reading Location: [facility] Y026 Neuro Angio Reading Room [id number] 06:13:00 Test Item Value Reference Range Interpretation Comments PHOSPHORUS (BEAKER) (test code = 3.6 mg/dL 2.3-4.7 604) Corrosion Engineer ID - [id number] 06:13:00 Test Item Value Reference Range Interpretation Comments MAGNESIUM (BEAKER) (test code = 1.7 mg/dL 1.6-2.6 627) Corrosion Engineer ID - DBBASIC METABOLIC [id number] 06:13:00 Test Item Value Reference Range Interpretation Comments SODIUM (BEAKER) 139 meq/L 136-145 (test code = 381) POTASSIUM (BEAKER) 3.3 meq/L 3.5-5.1 L (test code = 379) CHLORIDE (BEAKER) 106 meq/L 98-107 (test code = 382) CO2 (BEAKER) (test 26 meq/L 22-29 code = 355) BLOOD UREA NITROGEN 9 mg/dL 7-21 (BEAKER) (test code = 354) CREATININE (BEAKER) 0.81 mg/dL 0.57-1.25 (test code = 358) GLUCOSE RANDOM 92 mg/dL 70-105 (BEAKER) (test code = 652) CALCIUM (BEAKER) 8.4 mg/dL 8.4-10.2 (test code = 697) EGFR (BEAKER) (test 71 mL/min/1.73 ESTIMA CORNELIUS GFR IS code = 1092) sq m NOT ACCURATE CREATININE CLEARANCE IN PREDICTING GLOMERULAR FILTRATION RATE . ESTIMATED GFR I S NOT APPLICABLE FOR DIALYSIS PATIEN TS. Corrosion Engineer ID - [id number] PLATELET [id number] 05:39:00 Test Item Value Reference Range Interpretation Comments POC-P2Y12 PLATELET AGG (BEAKER) (test 40 PRU code = 2303) RANGE INFORMATION: PRU reference range is 194-418. Post Drug Results: Lower PRU levels are associated with expected antiplatelet effect. Values may be below the stated reference range above. The post-drug PRU values reported in the VerifyNow P2Y12 package insert are [id number].CBC W/PLT COUNT & AUTO DIFFERENTIAL 2020-04-22 05:33:00 Test Item Value Reference Range Interpretation Comments WHITE BLOOD CELL COUNT (BEAKER) 8.4 K/ L 3.5-10.5 (test code = 775) RED BLOOD CELL COUNT (BEAKER) 3.31 M/ L 3.93-5.22 L (test code = 761) HEMOGLOBIN (BEAKER) (test code = 9.7 GM/DL 11.2-15.7 L 410) HEMATOCRIT (BEAKER) (test code = 30.5 % 34.1-44.9 L 411) MEAN CORPUSCULAR VOLUME (BEAKER) 92.1 fL 79.4-94.8 (test code = 753) MEAN CORPUSCULAR HEMOGLOBIN 29.3 pg 25.6-32.2 (BEAKER) (test code = 751) MEAN CORPUSCULAR HEMOGLOBIN CONC 31.8 GM/DL 32.2-35.5 L (BEAKER) (test code = 752) RED CELL DISTRIBUTION WIDTH 13.2 % 11.7-14.4 (BEAKER) (test code = 412) PLATELET COUNT (BEAKER) (test 202 K/CU MM 150-450 code = 756) MEAN PLATELET VOLUME (BEAKER) 11.3 fL 9.4-12.3 (test code = 754) NUCLEATED RED BLOOD CELLS 0 /100 WBC 0-0 (BEAKER) (test code = 413) NEUTROPHILS RELATIVE PERCENT 73 % (BEAKER) (test code = 429) LYMPHOCYTES RELATIVE PERCENT 18 % (BEAKER) (test code = 430) MONOCYTES RELATIVE PERCENT 8 % (BEAKER) (test code = 431) EOSINOPHILS RELATIVE PERCENT 1 % (BEAKER) (test code = 432) BASOPHILS RELATIVE PERCENT 0 % (BEAKER) (test code = 437) NEUTROPHILS ABSOLUTE COUNT 6.12 K/ L 1.56-6.13 (BEAKER) (test code = 670) LYMPHOCYTES ABSOLUTE COUNT 1.50 K/ L 1.18-3.74 (BEAKER) (test code = 414) MONOCYTES ABSOLUTE COUNT (BEAKER) 0.66 K/ L 0.24-0.36 H (test code = 415) EOSINOPHILS ABSOLUTE COUNT 0.06 K/ L 0.04-0.36 (BEAKER) (test code = 416) BASOPHILS ABSOLUTE COUNT (BEAKER) 0.03 K/ L 0.01-0.08 (test code = 417) IMMATURE GRANULOCYTES-RELATIVE 0 % 0-1 PERCENT (BEAKER) (test code = 2801) POCT-GLUCOSE [id number] 16:50:00 Test Item Value Reference Range Interpretation Comments POC-GLUCOSE METER 103 mg/dL 70-110 : TESTED [place] [address] ([facility]) (test code [facility], = 1538) [address]: Corrosion Engineer/Techni thu ID = [id number] for JOSIAH LOMELI [id number] 09:38:00 Test Item Value Reference Range Interpretation Comments ACTIVATED CLOTTING TIME 241 sec : 74 -137 seconds, (BEAKER) (test code = Baseli ne: TESTED AT 441) [address], [address]: Corrosion Engineer/Techni thu ID = [id number] for YA DEEPIKA, GLYNA [id number] 09:02:00 Test Item Value Reference Range Interpretation Comments ACTIVATED CLOTTING TIME 147 sec : 74 -137 seconds, (BEAKER) (test code = Baseli ne: TESTED AT 441) [address], [address]: Corrosion Engineer/Techni thu ID = [id number] for YA DEEPIKA, GLYNA [id number] 07:06:00 Test Item Value Reference Range Interpretation Comments PROTIME (BEAKER) (test code = 14.9 seconds 11.9-14.2 H 759) INR (BEAKER) (test code = 370) 1.2 <=5.9 PARTIAL THROMBOPLASTIN TIME 34.9 seconds 22.5-36.0 (BEAKER) (test code = 760) Effective 02/24/2019: PT Reference Range ChangeNew: 11.9-14.2 Previous: 11.7- 14.7RECOMMENDED COUMADIN/WARFARIN INR THERAPY RANGESSTANDARD DOSE: 2.0-3.0 Includes: PROPHYLAXIS for venous thrombosis, systemic embolization; TREATMENT for venous thrombosis and/or pulmonary embolus.HIGH RISK: Target INR is2.5-3.5 for patients wiht mechanical heart valves.SARS-COV2/RT-PCR ([facility]) 2020-04-20 21:03:00 Test Item Value Reference Range Interpretation Comments SARS-COV2/RT-PCR (test Negative Not Detected, Negative, code = 6074314) See external report for linked test SARS-COV-2 PERFORMING LAB [facility] (test code = 4670712) Negative result for this test determines that SARS-CoV-2 RNA was not present in the specimen above the Limit of Detection (LOD). However, Negative results do not preclude SARS-CoV-2 infection and should not be used as the sole basis for treatment or patient management decisions. Negative results mustbe combined with clinical observations, patient history, and epidemiological information. A false negative result may occur if a specimen is improperly collected, transported or handled. A false negative result should be considered if patient's recent exposures or clinical presentation indicate that COVID-19 (SARS-CoV-2) is likely and diagnostic tests for other causes of illness are negative. Re-testing should be considered in cases of suspected false negatives.The limit of detection for this assay is 800 copies/mL.This SARS CoV-2 test is a real-time RT-PCR test intended for the qualitative detection of nucleic acid from SARS-CoV-2 in a nasopharyngeal swab specimen collected from individuals susp ected of COVID-19 by their healthcare provider.This test has not been Food and Drug Administration (FDA) cleared or approved. This is a modified version of an approved Emergency Use Authorization (EUA) and is in the process of review by the FDA. Once authorized by the FDA, the issued EUA will be effective until the declaration that circumstances exist justifying the authorization of the emergency use of in vitro diagnostic tests for detection and/or diagnosis of COVID-19 is terminated under Section 564(b)(2) of the Act or the EUA is revoked under Section 564(g) of the Act.Fact Sheet for Healthcare Providers:https://www.[employer]/sites/default/files/product/documents/Fact_Shee f_WN_Akfwjzufe_Iyco_SMTM-AvR-2.pdfFact Sheet for Healthcare Patients:https://www.[employer]/sites/default/files/product/ documents/Aovv_Aynxz_Fwrmbwce_Wxme_JHWL-YtT-8.pdfPerforming Laboratory:[facility], [place] [address]XZFP-VZUEHXG PLATELET [id number] 14:33:00 Test Item Value Reference Range Interpretation Comments POC-ASPIRIN PLATELET AGG (BEAKER) 371 ARU (test code = 2302) RANGE INFORMATION: 350-549 ARU Therapeutic range for platelet function. 550-700 ARU Non-Therapeutic range for platelet function.POCT-P2Y12 PLATELET [id number] 14:33:00 Test Item Value Reference Range Interpretation Comments POC-P2Y12 PLATELET AGG (BEAKER) (test 7 PRU code = 2303) RANGE INFORMATION: PRU reference range is 194-418. Post Drug Results: Lower PRU levels are associated with expected antiplatelet effect. Values may be below the stated reference range above. The post-drug PRU values reported in the VerifyNow P2Y12 package insert are [id number].BASIC METABOLIC [id number] 13:56:00 Test Item Value Reference Range Interpretation Comments SODIUM (BEAKER) 142 meq/L 136-145 (test code = 381) POTASSIUM (BEAKER) 3.9 meq/L 3.5-5.1 (test code = 379) CHLORIDE (BEAKER) 107 meq/L 98-107 (test code = 382) CO2 (BEAKER) (test 30 meq/L 22-29 H code = 355) BLOOD UREA NITROGEN 15 mg/dL 7-21 (BEAKER) (test code = 354) CREATININE (BEAKER) 0.89 mg/dL 0.57-1.25 (test code = 358) GLUCOSE RANDOM 79 mg/dL 70-105 (BEAKER) (test code = 652) CALCIUM (BEAKER) 9.3 mg/dL 8.4-10.2 (test code = 697) EGFR (BEAKER) (test 64 mL/min/1.73 ESTIMA CORNELIUS GFR IS code = 1092) sq m NOT ACCURATE CREATININE CLEARANCE IN PREDICTING GLOMERULAR FILTRATION RATE . ESTIMATED GFR I S NOT APPLICABLE FOR DIALYSIS PATIEN TS. Corrosion Engineer ID - EDASICBC W/PLT COUNT & AUTO [id number] 13:40:00 Test Item Value Reference Range Interpretation Comments WHITE BLOOD CELL COUNT (BEAKER) 5.3 K/ L 3.5-10.5 (test code = 775) RED BLOOD CELL COUNT (BEAKER) 4.15 M/ L 3.93-5.22 (test code = 761) HEMOGLOBIN (BEAKER) (test code = 12.3 GM/DL 11.2-15.7 410) HEMATOCRIT (BEAKER) (test code = 38.4 % 34.1-44.9 411) MEAN CORPUSCULAR VOLUME (BEAKER) 92.5 fL 79.4-94.8 (test code = 753) MEAN CORPUSCULAR HEMOGLOBIN 29.6 pg 25.6-32.2 (BEAKER) (test code = 751) MEAN CORPUSCULAR HEMOGLOBIN CONC 32.0 GM/DL 32.2-35.5 L (BEAKER) (test code = 752) RED CELL DISTRIBUTION WIDTH 13.0 % 11.7-14.4 (BEAKER) (test code = 412) PLATELET COUNT (BEAKER) (test 241 K/CU MM 150-450 code = 756) MEAN PLATELET VOLUME (BEAKER) 11.4 fL 9.4-12.3 (test code = 754) NUCLEATED RED BLOOD CELLS 0 /100 WBC 0-0 (BEAKER) (test code = 413) NEUTROPHILS RELATIVE PERCENT 57 % (BEAKER) (test code = 429) LYMPHOCYTES RELATIVE PERCENT 32 % (BEAKER) (test code = 430) MONOCYTES RELATIVE PERCENT 8 % (BEAKER) (test code = 431) EOSINOPHILS RELATIVE PERCENT 2 % (BEAKER) (test code = 432) BASOPHILS RELATIVE PERCENT 1 % (BEAKER) (test code = 437) NEUTROPHILS ABSOLUTE COUNT 2.99 K/ L 1.56-6.13 (BEAKER) (test code = 670) LYMPHOCYTES ABSOLUTE COUNT 1.70 K/ L 1.18-3.74 (BEAKER) (test code = 414) MONOCYTES ABSOLUTE COUNT (BEAKER) 0.43 K/ L 0.24-0.36 H (test code = 415) EOSINOPHILS ABSOLUTE COUNT 0.10 K/ L 0.04-0.36 (BEAKER) (test code = 416) BASOPHILS ABSOLUTE COUNT (BEAKER) 0.03 K/ L 0.01-0.08 (test code = 417) IMMATURE GRANULOCYTES-RELATIVE 0 % 0-1 PERCENT (BEAKER) (test code = 2801) CT, BRAIN, WITHOUT [id number] 10:58:00FINAL REPORT CT, BRAIN, WITHOUT CONTRAST CLINICAL INDICATION: cva, cerebral a neurysm COMPARISON: February 02, 2020 TECHNIQUE: Noncontrast axial CT imaging of the brain and skull. DOSE REDUCTION: Dose modulation, iterative reconstruction, and/or weight-based adjustment of the mA/kV was utilized to reduce the radiation dose to as low as reasonably achievable. FINDINGS:Evolving left basal ganglia infarct, now chronic in age with minimal associated ex vacuo dilatation of the left lateral ventricle frontal horn. No intracranial hemorrhage, midline shift or mass effect. Structures arenormally developed. Mild chronic microvascular ischemic changes of the periventricular and subcortical white matter are present. No hydrocephalus. Orbits are within normal limits. No obstructive paranasal sinus disease. IMPRESSION: No acute intracranial findings Remote left basal ganglia infarct. If there is persistent clinical concern for intracranial pathology, MR examination is recommended for further characterization. Signed: Mary Yang Verified Date/Time: 03/16/2020 10:58:26 Reading Location: [address] Neuro Reading Room FL, ESOPH, SWALLOW FUNCTION, WITH CINE OR [id number] 08:43:00Reason for exam:->dysphagiaFINAL REPORT EXAM: FL, ESOPH, SWALLOW FUNCTION, WITH CINE OR VIDEODATE: 02/23/2020 1:21 PM INDICATION: dysphagia COMPARISON: Modified barium swallow, 02/07/2020 Fluoroscopic time: 1.19 minutesFluoroscopic dose: DAP 1043.90 mGy*no0Slowtu of images: 10 FINDINGS:Modified barium swallow examination was performed by a speech pathologist with fluoroscopic imaging and recordingby the radiologist. With thin barium flash penetration is identified. No adamairs aspiration was seen. IMPRESSION:There is an instance of flash penetration with thin barium. Please see the full report by the speech pathologist for additional details and plans. Signed: Tal Bauer Verified Date/Time: 02/25/2020 08:43:33 Reading Location: [facility] Reading Room [address] [place] [address] POCT-GLUCOSE [id number] 06:47:00 Test Item Value Reference Range Interpretation Comments POC-GLUCOSE METER 106 mg/dL 70-110 : TESTED A T [facility] 7200 (BEAKER) (test code [place] [facility]LD[place] A, = 1538) [place] [address]: Corrosion Engineer/Techni thu ID = [id number] for BEVERLY HAYES POCT-GLUCOSE [id number] 21:08:00 Test Item Value Reference Range Interpretation Comments POC-GLUCOSE METER 152 mg/dL 70-110 H : TESTED A T [facility] 7200 (BEAKER) (test code [place] [facility]LD[place] A, = 1538) [place] [address] 0: Corrosion Engineer/Techni thu ID = [id number] for KELLY HAYESW POCT-GLUCOSE [id number] 16:33:00 Test Item Value Reference Range Interpretation Comments POC-GLUCOSE METER 127 mg/dL 70-110 H : TESTED A T [facility]200 (BEAKER) (test code [place] [facility]LD[place] A, = 1538) [place] [address] 0: Corrosion Engineer/Techni thu ID = [id number] for OMIW FE, SYRIETA POCT-GLUCOSE [id number] 11:33:00 Test Item Value Reference Range Interpretation Comments POC-GLUCOSE METER 126 mg/dL 70-110 H : TESTED A T [facility] (BEAKER) (test code [place] A, = 1538) [place] [address] 0: Corrosion Engineer/Techni thu ID = [id number] for OMIW FE, SYRIETA POCT-GLUCOSE [id number] 06:45:00 Test Item Value Reference Range Interpretation Comments POC-GLUCOSE METER 117 mg/dL 70-110 H : Notified RN/MD: TESTED ([facility]) (test code AT [facility] SARBJIT = 1538) [place] [id number]: Corrosion Engineer/Techni thu ID = [id number] for Chav ez, Seble POCT-GLUCOSE [id number] 21:20:00 Test Item Value Reference Range Interpretation Comments POC-GLUCOSE METER 124 mg/dL 70-110 H : Notified RN/MD: TESTED ([facility]) (test code AT [facility] 7200 SARBJIT = 1538) [facility], [place] [id number]: Corrosion Engineer/Techni thu ID = [id number] for Sanchez ez, Seble POCT-GLUCOSE [id number] 17:19:00 Test Item Value Reference Range Interpretation Comments POC-GLUCOSE METER 131 mg/dL 70-110 H : TESTED A T [facility] 7200 (BEAKER) (test code [place] E DG A, = 1538) [place] [address] 0: Corrosion Engineer/Techni thu ID = [id number] for ORIJOLA-SABADO, BENZ POCT-GLUCOSE [id number] 12:05:00 Test Item Value Reference Range Interpretation Comments POC-GLUCOSE METER 136 mg/dL 70-110 H : TESTED A T [facility]200 (BEAKER) (test code [place] BLD[place] A, = 1538) [place] [address] 0: Corrosion Engineer/Techni thu ID = [id number] for ORIJOLA-SABADO, BENZ POCT-GLUCOSE [id number] 06:24:00 Test Item Value Reference Range Interpretation Comments POC-GLUCOSE METER 115 mg/dL 70-110 H : TESTED A T [facility] 7200 (BEAKER) (test code [place] E DG A, = 1538) [place] [address] 0: Corrosion Engineer/Techni thu ID = [id number] for FERN ANDO, MARISELA POCT-GLUCOSE [id number] 22:11:00 Test Item Value Reference Range Interpretation Comments POC-GLUCOSE METER 187 mg/dL 70-110 H : TESTED A T [facility] (BEAKER) (test code CAMBRIDG E BLDG A, = 1538) [place] [address] 0: Corrosion Engineer/Techni thu ID = [id number] for FERN ANDO, MARISELA POCT-GLUCOSE [id number] 16:36:00 Test Item Value Reference Range Interpretation Comments POC-GLUCOSE METER 74 mg/dL 70-110 : TESTED A T [facility] (BEAKER) (test code = CAMBRI DGE BLDG A, 1538) [place] [address] 0: Corrosion Engineer/Techni thu ID = [id number] for Debbie Garcia POCT-GLUCOSE [id number] 11:27:00 Test Item Value Reference Range Interpretation Comments POC-GLUCOSE METER 173 mg/dL 70-110 H : TESTED A T [facility] (BEAKER) (test code CAMBRIDG E BLDG A, = 1538) [place] [address] 0: Corrosion Engineer/Techni thu ID = [id number] for BEATRIZ FORMAN POCT-GLUCOSE [id number] 06:38:00 Test Item Value Reference Range Interpretation Comments POC-GLUCOSE METER 96 mg/dL 70-110 : TESTED A T [facility] (BEAKER) (test code = CAMBRI DGE BLDG A, 1538) [place] [address] 0: Corrosion Engineer/Techni thu ID = [id number] for VITUG-YANI, FLORIZZA POCT-GLUCOSE [id number] 21:05:00 Test Item Value Reference Range Interpretation Comments POC-GLUCOSE METER 144 mg/dL 70-110 H : TESTED A T [facility] (BEAKER) (test code CAMBRIDG E BLDG A, = 1538) [place] [address] 0: Corrosion Engineer/Techni thu ID = [id number] for VITUG-YANI, FLORIZZA POCT-GLUCOSE [id number] 16:44:00 Test Item Value Reference Range Interpretation Comments POC-GLUCOSE METER 133 mg/dL 70-110 H : TESTED A T [facility] (BEAKER) (test code CAMBRIDG E BLDG A, = 1538) [place] [address] 0: Corrosion Engineer/Techni thu ID = [id number] for Yaritza s, Debra POCT-GLUCOSE [id number] 11:49:00 Test Item Value Reference Range Interpretation Comments POC-GLUCOSE METER 166 mg/dL 70-110 H : TESTED A T [facility] (BEAKER) (test code CAMBRIDG E BLDG A, = 1538) [place] [address] 0: Corrosion Engineer/Techni thu ID = [id number] for Yaritza s, Debra POCT-GLUCOSE [id number] 06:02:00 Test Item Value Reference Range Interpretation Comments POC-GLUCOSE METER 112 mg/dL 70-110 H : TESTED A T [facility] (BEAKER) (test code CAMBRIDG E BLDG A, = 1538) [place] [address] 0: Corrosion Engineer/Techni thu ID = [id number] for CAMALEJANDRO MUNOZ BASIC METABOLIC [id number] 05:01:00 Test Item Value Reference Range Interpretation Comments SODIUM (BEAKER) 141 meq/L 136-145 (test code = 381) POTASSIUM (BEAKER) 3.8 meq/L 3.5-5.1 (test code = 379) CHLORIDE (BEAKER) 105 meq/L 98-107 (test code = 382) CO2 (BEAKER) (test 30 meq/L 22-29 H code = 355) BLOOD UREA NITROGEN 18 mg/dL 7-21 (BEAKER) (test code = 354) CREATININE (BEAKER) 0.83 mg/dL 0.57-1.25 (test code = 358) GLUCOSE RANDOM 112 mg/dL 70-105 H (BEAKER) (test code = 652) CALCIUM (BEAKER) 8.3 mg/dL 8.4-10.2 L (test code = 697) EGFR (BEAKER) (test 69 mL/min/1.73 ESTIMA CORNELIUS GFR IS code = 1092) sq m NOT ACCURATE CREATININE CLEARANCE IN PREDICTING GLOMERULAR FILTRATION RATE . ESTIMATED GFR I S NOT APPLICABLE FOR DIALYSIS PATIEN TS. CBC W/PLT COUNT & AUTO [id number] 04:36:00 Test Item Value Reference Range Interpretation Comments WHITE BLOOD CELL COUNT (BEAKER) 6.5 K/ L 3.5-10.5 (test code = 775) RED BLOOD CELL COUNT (BEAKER) 3.68 M/ L 3.93-5.22 L (test code = 761) HEMOGLOBIN (BEAKER) (test code = 11.3 GM/DL 11.2-15.7 410) HEMATOCRIT (BEAKER) (test code = 34.0 % 34.1-44.9 L 411) MEAN CORPUSCULAR VOLUME (BEAKER) 92.4 fL 79.4-94.8 (test code = 753) MEAN CORPUSCULAR HEMOGLOBIN 30.7 pg 25.6-32.2 (BEAKER) (test code = 751) MEAN CORPUSCULAR HEMOGLOBIN CONC 33.2 GM/DL 32.2-35.5 (BEAKER) (test code = 752) RED CELL DISTRIBUTION WIDTH 13.4 % 11.7-14.4 (BEAKER) (test code = 412) PLATELET COUNT (BEAKER) (test 257 K/CU MM 150-450 code = 756) MEAN PLATELET VOLUME (BEAKER) 11.5 fL 9.0-12.3 (test code = 754) NEUTROPHILS RELATIVE PERCENT 57 % (BEAKER) (test code = 429) LYMPHOCYTES RELATIVE PERCENT 31 % (BEAKER) (test code = 430) MONOCYTES RELATIVE PERCENT 7 % (BEAKER) (test code = 431) EOSINOPHILS RELATIVE PERCENT 4 % (BEAKER) (test code = 432) BASOPHILS RELATIVE PERCENT 1 % (BEAKER) (test code = 437) NEUTROPHILS ABSOLUTE COUNT 3.70 K/ L 1.56-6.13 (BEAKER) (test code = 670) LYMPHOCYTES ABSOLUTE COUNT 1.99 K/ L 1.18-3.74 (BEAKER) (test code = 414) MONOCYTES ABSOLUTE COUNT (BEAKER) 0.45 K/ L 0.24-0.36 H (test code = 415) EOSINOPHILS ABSOLUTE COUNT 0.28 K/ L 0.04-0.36 (BEAKER) (test code = 416) BASOPHILS ABSOLUTE COUNT (BEAKER) 0.04 K/ L 0.01-0.08 (test code = 417) IMMATURE GRANULOCYTES-RELATIVE 0 % 0-1 PERCENT (BEAKER) (test code = 2801) POCT-GLUCOSE [id number] 20:44:00 Test Item Value Reference Range Interpretation Comments POC-GLUCOSE METER 123 mg/dL 70-110 H : TESTED A T [facility] (BEAKER) (test code CAMBRIDG E BLDG A, = 1538) [place] [address] 0: Corrosion Engineer/Techni thu ID = [id number] for CAMF IELD, CRYSTAL POCT-GLUCOSE [id number] 16:42:00 Test Item Value Reference Range Interpretation Comments POC-GLUCOSE METER 174 mg/dL 70-110 H : TESTED A T [facility] (BEAKER) (test code CAMBRIDG E BLDG A, = 1538) [place] [address] 0: Corrosion Engineer/Techni thu ID = [id number] for Abu, Moyosore POCT-GLUCOSE [id number] 11:29:00 Test Item Value Reference Range Interpretation Comments POC-GLUCOSE METER 167 mg/dL 70-110 H : TESTED A T [facility] (BEAKER) (test code CAMBRIDG E BLDG A, = 1538) [place] [address] 0: Corrosion Engineer/Techni thu ID = [id number] for Abu, Harinderyosore POCT-GLUCOSE [id number] 07:17:00 Test Item Value Reference Range Interpretation Comments POC-GLUCOSE METER 134 mg/dL 70-110 H : TESTED A T [facility] (BEAKER) (test code CAMBRIDG E BLDG A, = 1538) [place] [address] 0: Corrosion Engineer/Techni thu ID = [id number] for Etim , Bassey POCT-GLUCOSE [id number] 22:11:00 Test Item Value Reference Range Interpretation Comments POC-GLUCOSE METER 84 mg/dL 70-110 : TESTED A T [facility] (BEAKER) (test code = CAMBRI DGE BLDG A, 1538) [place] [address] 0: Corrosion Engineer/Techni thu ID = [id number] for Etim , Bassey POCT-GLUCOSE [id number] 16:38:00 Test Item Value Reference Range Interpretation Comments POC-GLUCOSE METER 148 mg/dL 70-110 H : TESTED A T [facility] (BEAKER) (test code CAMBRIDG E BLDG A, = 1538) [place] [address] 0: Corrosion Engineer/Techni thu ID = [id number] for ORIJOLA-SABADO, BENZ POCT-GLUCOSE [id number] 11:46:00 Test Item Value Reference Range Interpretation Comments POC-GLUCOSE METER 166 mg/dL 70-110 H : TESTED A T [facility] (BEAKER) (test code CAMBRIDG E BLDG A, = 1538) [place] [address] 0: Corrosion Engineer/Techni thu ID = [id number] for ORIJOLA-SABADO, BENZ POCT-GLUCOSE [id number] 06:10:00 Test Item Value Reference Range Interpretation Comments POC-GLUCOSE METER 103 mg/dL 70-110 : TESTED A T [facility] (BEAKER) (test code CAMBRIDG E BLDG A, = 1538) [place] [address] 0: Corrosion Engineer/Techni thu ID = [id number] for CHEYENNE ENDA, KSENIA POCT-GLUCOSE [id number] 20:17:00 Test Item Value Reference Range Interpretation Comments POC-GLUCOSE METER 243 mg/dL 70-110 H : TESTED A T [facility] (BEAKER) (test code CAMBRIDG E BLDG A, = 1538) [place] [address] 0: Corrosion Engineer/Techni thu ID = [id number] for KSENIA MOHR POCT-GLUCOSE [id number] 17:05:00 Test Item Value Reference Range Interpretation Comments POC-GLUCOSE METER 123 mg/dL 70-110 H : TESTED A T [facility] (BEAKER) (test code CAMBRIDG E BLDG A, = 1538) [place] [address] 0: Corrosion Engineer/Techni thu ID = [id number] for BEATRIZ FORMAN POCT-GLUCOSE [id number] 11:38:00 Test Item Value Reference Range Interpretation Comments POC-GLUCOSE METER 160 mg/dL 70-110 H : TESTED A T [facility] (BEAKER) (test code CAMBRIDG E BLDG A, = 1538) [place] [address] 0: Corrosion Engineer/Techni thu ID = [id number] for ALISA MORTENSEN ADRIEN POCT-GLUCOSE [id number] 06:25:00 Test Item Value Reference Range Interpretation Comments POC-GLUCOSE METER 131 mg/dL 70-110 H : TESTED A T [facility] (BEAKER) (test code CAMBRIDG E BLDG A, = 1538) [place] [address] 0: Corrosion Engineer/Techni thu ID = [id number] for SEFERINO MCCARTHY POCT-GLUCOSE [id number] 20:50:00 Test Item Value Reference Range Interpretation Comments POC-GLUCOSE METER 163 mg/dL 70-110 H : TESTED A T [facility] (BEAKER) (test code CAMBRIDG E BLDG A, = 1538) [place] [address] 0: Corrosion Engineer/Techni thu ID = [id number] for DARCI , SEFERINO MR, BRAIN, WITHOUT IV [id number] 16:39:00FINAL REPORT Examination: MR, BRAIN, WITHOUT IV CONTRASTHistory: History of stroke. Follow-up examination.Comparison studies: Head CT performed February 02, 2020. Technique: Sagittal T2; axial DWI, FLAIR, GRE or SWI, T1, Coronal FLAIR.Intravenous contrast: None Findings: Scalp: No abnormal signal. No masses.Bone marrow: Normal in signal intensity. Brain volume: Adequate for age. Novolume loss.Ventricles: Normal in size and configuration. No hydrocephalus. Extra-axial spaces:No abnormalities. Parenchyma:There are several scattered punctate areas of T2/FLAIR hyperintensity in the periventricular and subcortical white matter, nonspecific. FLAIR and T2 signal change is identified within the left caudate head, body and tail, anterior limb and genu of the left internal capsule, left globus pallidus and left putamen with associated bright signal on DWI normalized ADC map. Signalwithin the posterior limb of the left internal capsule and left cerebral peduncle is demonstrated onaxial T2 and FLAIR images and is consistent with Wallerian degeneration. Interval improvement of themass effect upon the frontal horn of the left lateral ventricle, which demonstrated near complete effacement on the prior examination. On susceptibility weighted images, there are innumerable punctate areas of hypointensity, which remains the same signal on axial filtered phase imaging and is consistent with chronic microhemorrhages.Hydrated physiologic calcification is identified within the left globus pallidus. No masses, acute hemorrhage, or acute vascular insults. Suprasellar and sellar region: No abnormalities.Craniocervical junction: No abnormalities. The foramen magnum is patent. No Chiari malformations.Vessels: Normal flow-voids in the arteries and sinuses. Additional findings:None. IMPRESS ION: Interval evolution of left striatocapsular infarct, now subacute, and associated with areas of chronic microhemorrhage when compared to prior head CT performed February 02, 2020. Minimal chronic microvascular ischemic change. Signed: Kristi Espinoza MDReport Verified Date/Time: 02/17/2020 16:39:02 Reading Location: [facility] Reading Room [address] [place] [address] POCT-GLUCOSE [id number] 16:20:00 Test Item Value Reference Range Interpretation Comments POC-GLUCOSE METER 201 mg/dL 70-110 H : [facility] (test code CAMBRIDG E BLDG A, = 1538) [place] [id number] 0: Corrosion Engineer/Techni thu ID = [id number] for LYNDA CAMPOS POCT-GLUCOSE [id number] 11:51:00 Test Item Value Reference Range Interpretation Comments POC-GLUCOSE METER 193 mg/dL 70-110 H : TESTED A T [facility] (BEAKER) (test code CAMBRIDG E BLDG A, = 1538) [place] [address] 0: Corrosion Engineer/Techni thu ID = [id number] for LYNDA CAMPOS POCT-GLUCOSE [id number] 07:03:00 Test Item Value Reference Range Interpretation Comments POC-GLUCOSE METER 120 mg/dL 70-110 H : TESTED A T [facility] (BEAKER) (test code CAMBRIDG E BLDG A, = 1538) [place] [address] 0: Corrosion Engineer/Techni thu ID = [id number] for ODEY INDE, OMOWUNMI POCT-GLUCOSE [id number] 21:31:00 Test Item Value Reference Range Interpretation Comments POC-GLUCOSE METER 102 mg/dL 70-110 : TESTED A T [facility] (BEAKER) (test code CAMBRIDG E BLDG A, = 1538) [place] [address] 0: Corrosion Engineer/Techni thu ID = [id number] for ODEY INDE, OMOWUNMI POCT-GLUCOSE [id number] 17:07:00 Test Item Value Reference Range Interpretation Comments POC-GLUCOSE METER 176 mg/dL 70-110 H : TESTED A T [facility] (BEAKER) (test code CAMBRIDG E BLDG A, = 1538) [place] [address] 0: Corrosion Engineer/Techni thu ID = [id number] for OKOL I, ADAKU POCT-GLUCOSE [id number] 12:41:00 Test Item Value Reference Range Interpretation Comments POC-GLUCOSE METER 184 mg/dL 70-110 H : TESTED A T [facility] (BEAKER) (test code CAMBRIDG E BLDG A, = 1538) [place] [address] 0: Corrosion Engineer/Techni thu ID = [id number] for OKOL I, ADAKU POCT-GLUCOSE [id number] 06:10:00 Test Item Value Reference Range Interpretation Comments POC-GLUCOSE METER 154 mg/dL 70-110 H : TESTED A T [facility] (BEAKER) (test code CAMBRIDG E BLDG A, = 1538) [place] [address] 0: Corrosion Engineer/Techni thu ID = [id number] for CAMF IELD, CRYSTAL POCT-GLUCOSE [id number] 21:15:00 Test Item Value Reference Range Interpretation Comments POC-GLUCOSE METER 251 mg/dL 70-110 H : TESTED A T [facility] (BEAKER) (test code CAMBRIDG E BLDG A, = 1538) [place] [address] 0: Corrosion Engineer/Techni thu ID = [id number] for CAMF IELD, CRYSTAL POCT-GLUCOSE [id number] 17:11:00 Test Item Value Reference Range Interpretation Comments POC-GLUCOSE METER 142 mg/dL 70-110 H : TESTED A T [facility] (BEAKER) (test code CAMBRIDG E BLDG A, = 1538) [place] [address] 0: Corrosion Engineer/Techni thu ID = [id number] for ADRIEN WILSON POCT-GLUCOSE [id number] 11:27:00 Test Item Value Reference Range Interpretation Comments POC-GLUCOSE METER 207 mg/dL 70-110 H : TESTED A T [facility] (BEAKER) (test code CAMBRIDG E BLDG A, = 1538) [place] [address] 0: Corrosion Engineer/Techni thu ID = [id number] for ADRIEN WILSON BASIC METABOLIC [id number] 06:46:00 Test Item Value Reference Range Interpretation Comments SODIUM (BEAKER) 140 meq/L 135-148 (test code = 381) POTASSIUM (BEAKER) 4.7 meq/L 3.6-5.5 (test code = 379) CHLORIDE (BEAKER) 103 meq/L 98-106 (test code = 382) CO2 (BEAKER) (test 31 meq/L 24-32 code = 355) BLOOD UREA NITROGEN 23 mg/dL 10-26 (BEAKER) (test code = 354) CREATININE (BEAKER) 0.78 mg/dL 0.50-1.20 (test code = 358) GLUCOSE RANDOM 133 mg/dL 70-110 H (BEAKER) (test code = 652) CALCIUM (BEAKER) 9.2 mg/dL 8.5-10.5 (test code = 697) EGFR (BEAKER) (test 75 mL/min/1.73 ESTIMA CORNELIUS GFR IS code = 1092) sq m NOT ACCURATE CREATININE CLEARANCE IN PREDICTING GLOMERULAR FILTRATION RATE . ESTIMATED GFR I S NOT APPLICABLE FOR DIALYSIS PATIEN TS. [id number] 06:45:00 Test Item Value Reference Range Interpretation Comments MAGNESIUM (BEAKER) (test code = 1.9 mg/dL 1.5-3.0 627) POCT-GLUCOSE [id number] 05:55:00 Test Item Value Reference Range Interpretation Comments POC-GLUCOSE METER 131 mg/dL 70-110 H : TESTED A T [facility] (BEAKER) (test code CAMBRIDG E BLDG A, = 1538) [place] [address] 0: Corrosion Engineer/Techni thu ID = [id number] for NICOL LEMUEL, BEVERLY POCT-GLUCOSE [id number] 20:51:00 Test Item Value Reference Range Interpretation Comments POC-GLUCOSE METER 124 mg/dL 70-110 H : TESTED A T [facility] (BEAKER) (test code CAMBRIDG E BLDG A, = 1538) [place] [address] 0: Corrosion Engineer/Techni thu ID = [id number] for NICOL LEMUEL, BEVERLY POCT-GLUCOSE [id number] 16:10:00 Test Item Value Reference Range Interpretation Comments POC-GLUCOSE METER 153 mg/dL 70-110 H : TESTED A T [facility] (BEAKER) (test code CAMBRIDG E BLDG A, = 1538) [place] [address] 0: Corrosion Engineer/Techni thu ID = [id number] for JACINTA ANO, JUCEL GABRIEL POCT-GLUCOSE [id number] 11:19:00 Test Item Value Reference Range Interpretation Comments POC-GLUCOSE METER 174 mg/dL 70-110 H : TESTED A T [facility] (BEAKER) (test code CAMBRIDG E BLDG A, = 1538) [place] [address] 0: Corrosion Engineer/Techni thu ID = [id number] for JACINTA ANO, JUCEL GABRIEL POCT-GLUCOSE [id number] 06:25:00 Test Item Value Reference Range Interpretation Comments POC-GLUCOSE METER 158 mg/dL 70-110 H : TESTED A T [facility] (BEAKER) (test code CAMBRIDG E BLDG A, = 1538) [place] [address] 0: Corrosion Engineer/Techni thu ID = [id number] for SEFERINO MCCARTHY BASIC METABOLIC [id number] 03:48:00 Test Item Value Reference Range Interpretation Comments SODIUM (BEAKER) 137 meq/L 136-145 (test code = 381) POTASSIUM (BEAKER) 3.3 meq/L 3.5-5.1 L (test code = 379) CHLORIDE (BEAKER) 101 meq/L 98-107 (test code = 382) CO2 (BEAKER) (test 30 meq/L 22-29 H code = 355) BLOOD UREA NITROGEN 17 mg/dL 7-21 (BEAKER) (test code = 354) CREATININE (BEAKER) 0.74 mg/dL 0.57-1.25 (test code = 358) GLUCOSE RANDOM 179 mg/dL 70-105 H (BEAKER) (test code = 652) CALCIUM (BEAKER) 8.5 mg/dL 8.4-10.2 (test code = 697) EGFR (BEAKER) (test 79 mL/min/1.73 ESTIMA CORNELIUS GFR IS code = 1092) sq m NOT ACCURATE CREATININE CLEARANCE IN PREDICTING GLOMERULAR FILTRATION RATE . ESTIMATED GFR I S NOT APPLICABLE FOR DIALYSIS PATIEN TS. CBC W/PLT COUNT & AUTO [id number] 03:35:00 Test Item Value Reference Range Interpretation Comments WHITE BLOOD CELL COUNT (BEAKER) 9.4 K/ L 3.5-10.5 (test code = 775) RED BLOOD CELL COUNT (BEAKER) 3.65 M/ L 3.93-5.22 L (test code = 761) HEMOGLOBIN (BEAKER) (test code = 11.0 GM/DL 11.2-15.7 L 410) HEMATOCRIT (BEAKER) (test code = 33.4 % 34.1-44.9 L 411) MEAN CORPUSCULAR VOLUME (BEAKER) 91.5 fL 79.4-94.8 (test code = 753) MEAN CORPUSCULAR HEMOGLOBIN 30.1 pg 25.6-32.2 (BEAKER) (test code = 751) MEAN CORPUSCULAR HEMOGLOBIN CONC 32.9 GM/DL 32.2-35.5 (BEAKER) (test code = 752) RED CELL DISTRIBUTION WIDTH 13.0 % 11.7-14.4 (BEAKER) (test code = 412) PLATELET COUNT (BEAKER) (test 283 K/CU MM 150-450 code = 756) MEAN PLATELET VOLUME (BEAKER) 10.6 fL 9.0-12.3 (test code = 754) NEUTROPHILS RELATIVE PERCENT 67 % (BEAKER) (test code = 429) LYMPHOCYTES RELATIVE PERCENT 22 % (BEAKER) (test code = 430) MONOCYTES RELATIVE PERCENT 7 % (BEAKER) (test code = 431) EOSINOPHILS RELATIVE PERCENT 3 % (BEAKER) (test code = 432) BASOPHILS RELATIVE PERCENT 1 % (BEAKER) (test code = 437) NEUTROPHILS ABSOLUTE COUNT 6.27 K/ L 1.56-6.13 H (BEAKER) (test code = 670) LYMPHOCYTES ABSOLUTE COUNT 2.10 K/ L 1.18-3.74 (BEAKER) (test code = 414) MONOCYTES ABSOLUTE COUNT (BEAKER) 0.65 K/ L 0.24-0.36 H (test code = 415) EOSINOPHILS ABSOLUTE COUNT 0.27 K/ L 0.04-0.36 (BEAKER) (test code = 416) BASOPHILS ABSOLUTE COUNT (BEAKER) 0.06 K/ L 0.01-0.08 (test code = 417) IMMATURE GRANULOCYTES-RELATIVE 0 % 0-1 PERCENT (BEAKER) (test code = 2801) POCT-GLUCOSE [id number] 20:49:00 Test Item Value Reference Range Interpretation Comments POC-GLUCOSE METER 210 mg/dL 70-110 H : TESTED A T [facility] (BEAKER) (test code CAMBRIDG E BLDG A, = 1538) [place] [address] 0: Corrosion Engineer/Techni thu ID = [id number] for DARCI SEFERINO POCT-GLUCOSE [id number] 16:45:00 Test Item Value Reference Range Interpretation Comments POC-GLUCOSE METER 304 mg/dL 70-110 H : TESTED A T [facility] (BEAKER) (test code CAMBRIDG E BLDG A, = 1538) [place] [address] 0: Corrosion Engineer/Techni thu ID = [id number] for LYNDA CAMPOS POCT-GLUCOSE [id number] 11:55:00 Test Item Value Reference Range Interpretation Comments POC-GLUCOSE METER 229 mg/dL 70-110 H : TESTED A T [facility] (BEAKER) (test code CAMBRIDG E BLDG A, = 1538) [place] [address] 0: Corrosion Engineer/Techni thu ID = [id number] for LYNDA CAMPOS POCT-GLUCOSE [id number] 06:27:00 Test Item Value Reference Range Interpretation Comments POC-GLUCOSE METER 160 mg/dL 70-110 H : TESTED A T [facility] (BEAKER) (test code CAMBRIDG E BLDG A, = 1538) [place] [address] 0: Corrosion Engineer/Techni thu ID = [id number] for DARCI , SEFERINO POCT-GLUCOSE [id number] 21:41:00 Test Item Value Reference Range Interpretation Comments POC-GLUCOSE METER 177 mg/dL 70-110 H : TESTED A T [facility] (BEAKER) (test code CAMBRIDG E BLDG A, = 1538) [place] [address] 0: Corrosion Engineer/Techni htu ID = [id number] for DARCI , SEFERINO POCT-GLUCOSE [id number] 17:01:00 Test Item Value Reference Range Interpretation Comments POC-GLUCOSE METER 198 mg/dL 70-110 H : TESTED A T [facility] (BEAKER) (test code CAMBRIDG E BLDG A, = 1538) [place] [address] 0: Corrosion Engineer/Techni thu ID = [id number] for SHAWNA BRAY, LYNDA POCT-GLUCOSE [id number] 06:15:00 Test Item Value Reference Range Interpretation Comments POC-GLUCOSE METER 136 mg/dL 70-110 H : TESTED A T [facility] (BEAKER) (test code CAMBRIDG E BLDG A, = 1538) [place] [address] 0: Corrosion Engineer/Techni thu ID = [id number] for KRYSTAL SARAVIAA POCT-GLUCOSE [id number] 20:18:00 Test Item Value Reference Range Interpretation Comments POC-GLUCOSE METER 120 mg/dL 70-110 H : TESTED A T [facility] (BEAKER) (test code CAMBRIDG E BLDG A, = 1538) [place] [address] 0: Corrosion Engineer/Techni thu ID = [id number] for RANI , ALMA ROSA POCT-GLUCOSE [id number] 16:55:00 Test Item Value Reference Range Interpretation Comments POC-GLUCOSE METER 177 mg/dL 70-110 H : TESTED A T [facility] (BEAKER) (test code CAMBRIDG E BLDG A, = 1538) [place] [address] 0: Corrosion Engineer/Techni thu ID = [id number] for SHAWNA BRAY, LYNDA POCT-GLUCOSE [id number] 11:26:00 Test Item Value Reference Range Interpretation Comments POC-GLUCOSE METER 239 mg/dL 70-110 H : TESTED A T [facility] (BEAKER) (test code CAMBRIDG E BLDG A, = 1538) [place] [address] 0: Corrosion Engineer/Techni thu ID = [id number] for SHAWNA BRAY, LYNDA POCT-GLUCOSE [id number] 06:22:00 Test Item Value Reference Range Interpretation Comments POC-GLUCOSE METER 134 mg/dL 70-110 H : TESTED A T [facility] (BEAKER) (test code CAMBRIDG E BLDG A, = 1538) [place] [address] 0: Corrosion Engineer/Techni thu ID = [id number] for NICOL LEMUELBEVERLY [place] COMPREHENSIVE METABOLIC [id number] 05:48:00 Test Item Value Reference Range Interpretation Comments TOTAL PROTEIN 6.5 gm/dL 6.0-8.3 (BEAKER) (test code = 770) ALBUMIN (BEAKER) 3.8 g/dL 3.5-5.0 (test code = 1145) ALKALINE PHOSPHATASE 98 U/L 40-150 (BEAKER) (test code = 346) BILIRUBIN TOTAL 0.7 mg/dL 0.2-1.2 (BEAKER) (test code = 377) SODIUM (BEAKER) (test 142 meq/L 136-145 code = 381) POTASSIUM (BEAKER) 3.6 meq/L 3.5-5.1 (test code = 379) CHLORIDE (BEAKER) 105 meq/L 98-107 (test code = 382) CO2 (BEAKER) (test 28 meq/L 22-29 code = 355) BLOOD UREA NITROGEN 23 mg/dL 7-21 H (BEAKER) (test code = 354) CREATININE (BEAKER) 0.79 mg/dL 0.57-1.25 (test code = 358) GLUCOSE RANDOM 135 mg/dL 70-105 H (BEAKER) (test code = 652) CALCIUM (BEAKER) 8.7 mg/dL 8.4-10.2 (test code = 697) AST (SGOT) (BEAKER) 26 U/L 5-34 (test code = 353) ALT (SGPT) (BEAKER) 50 U/L 6-55 (test code = 347) EGFR (BEAKER) (test 74 mL/min/1.73 ESTIMA CORNELIUS GFR IS code = 1092) sq m NOT ACCURATE CREATININE CLEARANCE IN PREDICTING GLOMERULAR FILTRATION RATE . ESTIMATED GFR I S NOT APPLICABLE FOR DIALYSIS PATIEN TS. CBC W/PLT COUNT & AUTO [id number] 05:35:00 Test Item Value Reference Range Interpretation Comments WHITE BLOOD CELL COUNT (BEAKER) 9.3 K/ L 3.5-10.5 (test code = 775) RED BLOOD CELL COUNT (BEAKER) 3.66 M/ L 3.93-5.22 L (test code = 761) HEMOGLOBIN (BEAKER) (test code = 11.1 GM/DL 11.2-15.7 L 410) HEMATOCRIT (BEAKER) (test code = 33.4 % 34.1-44.9 L 411) MEAN CORPUSCULAR VOLUME (BEAKER) 91.3 fL 79.4-94.8 (test code = 753) MEAN CORPUSCULAR HEMOGLOBIN 30.3 pg 25.6-32.2 (BEAKER) (test code = 751) MEAN CORPUSCULAR HEMOGLOBIN CONC 33.2 GM/DL 32.2-35.5 (BEAKER) (test code = 752) RED CELL DISTRIBUTION WIDTH 13.0 % 11.7-14.4 (BEAKER) (test code = 412) PLATELET COUNT (BEAKER) (test 304 K/CU MM 150-450 code = 756) MEAN PLATELET VOLUME (BEAKER) 10.8 fL 9.4-12.3 (test code = 754) NEUTROPHILS RELATIVE PERCENT 61 % (BEAKER) (test code = 429) LYMPHOCYTES RELATIVE PERCENT 23 % (BEAKER) (test code = 430) MONOCYTES RELATIVE PERCENT 9 % (BEAKER) (test code = 431) EOSINOPHILS RELATIVE PERCENT 5 % (BEAKER) (test code = 432) BASOPHILS RELATIVE PERCENT 1 % (BEAKER) (test code = 437) NEUTROPHILS ABSOLUTE COUNT 5.70 K/ L 1.56-6.13 (BEAKER) (test code = 670) LYMPHOCYTES ABSOLUTE COUNT 2.17 K/ L 1.18-3.74 (BEAKER) (test code = 414) MONOCYTES ABSOLUTE COUNT (BEAKER) 0.83 K/ L 0.24-0.36 H (test code = 415) EOSINOPHILS ABSOLUTE COUNT 0.49 K/ L 0.04-0.36 H (BEAKER) (test code = 416) BASOPHILS ABSOLUTE COUNT (BEAKER) 0.05 K/ L 0.01-0.08 (test code = 417) IMMATURE GRANULOCYTES-RELATIVE 1 % 0-1 PERCENT (BEAKER) (test code = 2801) POCT-GLUCOSE [id number] 21:05:00 Test Item Value Reference Range Interpretation Comments POC-GLUCOSE METER 179 mg/dL 70-110 H : TESTED A T [facility] 7[facility] (BEAKER) (test code [place] [place] BLDG A, = 1538) [facility] 7703 0: Corrosion Engineer/Techni thu ID = [id number] for NICOL LEMUEL, BEVERLY POCT-GLUCOSE [id number] 17:24:00 Test Item Value Reference Range Interpretation Comments POC-GLUCOSE METER 172 mg/dL 70-110 H : Notified RN/MD: TESTED (BEAKER) (test code AT [facility] 6720 [facility] = 1538) [facility], 770 30: Corrosion Engineer/Techni thu ID = [id number] for TSEG GAI, TSIGHEREDA POCT-GLUCOSE [id number] 17:10:00 Test Item Value Reference Range Interpretation Comments POC-GLUCOSE METER 218 mg/dL 70-110 H : TESTED A T [facility] 7200 (BEAKER) (test code [place] BLDG A, = 1538) [facility] 7703 0: Corrosion Engineer/Techni thu ID = [id number] for OMIW FE, SYRIETA POCT-GLUCOSE [id number] 07:28:00 Test Item Value Reference Range Interpretation Comments POC-GLUCOSE METER 119 mg/dL 70-110 H : TESTED A T [facility] 6720 (BEAKER) (test code [facility], = 1538) [address]: Corrosion Engineer/Techni thu ID = [id number] for TSEG GAI, TSIGHEREDA BASIC METABOLIC [id number] 05:53:00 Test Item Value Reference Range Interpretation Comments SODIUM (BEAKER) 140 meq/L 136-145 (test code = 381) POTASSIUM (BEAKER) 3.7 meq/L 3.5-5.1 (test code = 379) CHLORIDE (BEAKER) 107 meq/L 98-107 (test code = 382) CO2 (BEAKER) (test 27 meq/L 22-29 code = 355) BLOOD UREA NITROGEN 20 mg/dL 7-21 (BEAKER) (test code = 354) CREATININE (BEAKER) 0.64 mg/dL 0.57-1.25 (test code = 358) GLUCOSE RANDOM 118 mg/dL 70-105 H (BEAKER) (test code = 652) CALCIUM (BEAKER) 8.7 mg/dL 8.4-10.2 (test code = 697) EGFR (BEAKER) (test 94 mL/min/1.73 ESTIMA CORNELIUS GFR IS code = 1092) sq m NOT ACCURATE CREATININE CLEARANCE IN PREDICTING GLOMERULAR FILTRATION RATE . ESTIMATED GFR I S NOT APPLICABLE FOR DIALYSIS PATIEN TS. Corrosion Engineer ID - EMILY MCBC W/PLT COUNT & AUTO [id number] 04:39:00 Test Item Value Reference Range Interpretation Comments WHITE BLOOD CELL COUNT (BEAKER) 9.8 K/ L 3.5-10.5 (test code = 775) RED BLOOD CELL COUNT (BEAKER) 3.70 M/ L 3.93-5.22 L (test code = 761) HEMOGLOBIN (BEAKER) (test code = 11.0 GM/DL 11.2-15.7 L 410) HEMATOCRIT (BEAKER) (test code = 32.8 % 34.1-44.9 L 411) MEAN CORPUSCULAR VOLUME (BEAKER) 88.6 fL 79.4-94.8 (test code = 753) MEAN CORPUSCULAR HEMOGLOBIN 29.7 pg 25.6-32.2 (BEAKER) (test code = 751) MEAN CORPUSCULAR HEMOGLOBIN CONC 33.5 GM/DL 32.2-35.5 (BEAKER) (test code = 752) RED CELL DISTRIBUTION WIDTH 13.1 % 11.7-14.4 (BEAKER) (test code = 412) PLATELET COUNT (BEAKER) (test 274 K/CU MM 150-450 code = 756) MEAN PLATELET VOLUME (BEAKER) 11.1 fL 9.4-12.3 (test code = 754) NUCLEATED RED BLOOD CELLS 0 /100 WBC 0-0 (BEAKER) (test code = 413) NEUTROPHILS RELATIVE PERCENT 63 % (BEAKER) (test code = 429) LYMPHOCYTES RELATIVE PERCENT 21 % (BEAKER) (test code = 430) MONOCYTES RELATIVE PERCENT 9 % (BEAKER) (test code = 431) EOSINOPHILS RELATIVE PERCENT 6 % (BEAKER) (test code = 432) BASOPHILS RELATIVE PERCENT 0 % (BEAKER) (test code = 437) NEUTROPHILS ABSOLUTE COUNT 6.12 K/ L 1.56-6.13 (BEAKER) (test code = 670) LYMPHOCYTES ABSOLUTE COUNT 2.09 K/ L 1.18-3.74 (BEAKER) (test code = 414) MONOCYTES ABSOLUTE COUNT (BEAKER) 0.83 K/ L 0.24-0.36 H (test code = 415) EOSINOPHILS ABSOLUTE COUNT 0.62 K/ L 0.04-0.36 H (BEAKER) (test code = 416) BASOPHILS ABSOLUTE COUNT (BEAKER) 0.04 K/ L 0.01-0.08 (test code = 417) IMMATURE GRANULOCYTES-RELATIVE 1 % 0-1 PERCENT (BEAKER) (test code = 2801) POCT-GLUCOSE [id number] 21:22:00 Test Item Value Reference Range Interpretation Comments POC-GLUCOSE METER 194 mg/dL 70-110 H : Notified RN/MD: (SAUNDRA) (test code = TESTED AT [place] [address] 1538) [facility], [address]: Corrosion Engineer/Techni thu ID = [id number] for LATHBRIDGE, FELI ICE POCT-GLUCOSE [id number] 18:11:00 Test Item Value Reference Range Interpretation Comments POC-GLUCOSE METER 187 mg/dL 70-110 H : Notified RN/MD: TESTED (SAUNDRA) (test code AT [place] [address] [facility] = 1538) [place] [address]: Corrosion Engineer/Techni thu ID = [id number] for TSEG GAI, TSIGHEREDA POCT-GLUCOSE [id number] 18:10:00 Test Item Value Reference Range Interpretation Comments POC-GLUCOSE METER 226 mg/dL 70-110 H : Notified RN/MD: TESTED (SAUNDRA) (test code AT [place] [address] [facility] = 1538) [place], 7[address]: Corrosion Engineer/Techni thu ID = [id number] for DAVID KAMARA POCT-GLUCOSE [id number] 07:45:00 Test Item Value Reference Range Interpretation Comments POC-GLUCOSE METER 122 mg/dL 70-110 H : TESTED A T [facility] 6720 (BEAKER) (test code DORIS [facility], = 1538) [address]: Corrosion Engineer/Techni thu ID = [id number] for DAVID KAMARA BASIC METABOLIC [id number] 05:18:00 Test Item Value Reference Range Interpretation Comments SODIUM (BEAKER) 139 meq/L 136-145 (test code = 381) POTASSIUM (BEAKER) 3.6 meq/L 3.5-5.1 Specimen slightly (test code = 379) hemolyzed CHLORIDE (BEAKER) 107 meq/L 98-107 (test code = 382) CO2 (BEAKER) (test 24 meq/L 22-29 code = 355) BLOOD UREA NITROGEN 19 mg/dL 7-21 (BEAKER) (test code = 354) CREATININE (BEAKER) 0.82 mg/dL 0.57-1.25 Specimen slightly (test code = 358) hemolyzed GLUCOSE RANDOM 115 mg/dL 70-105 H (BEAKER) (test code = 652) CALCIUM (BEAKER) 8.8 mg/dL 8.4-10.2 (test code = 697) EGFR (BEAKER) (test 70 mL/min/1.73 ESTIMA CORNELIUS GFR IS code = 1092) sq m NOT ACCURATE CREATININE CLEARANCE IN PREDICTING GLOMERULAR FILTRATION RATE . ESTIMATED GFR I S NOT APPLICABLE FOR DIALYSIS PATIEN TS. Corrosion Engineer ID - PIAYA LCBC W/PLT COUNT & AUTO [id number] 05:12:00 Test Item Value Reference Range Interpretation Comments WHITE BLOOD CELL COUNT (BEAKER) 11.5 K/ L 3.5-10.5 H (test code = 775) RED BLOOD CELL COUNT (BEAKER) 3.71 M/ L 3.93-5.22 L (test code = 761) HEMOGLOBIN (BEAKER) (test code = 11.6 GM/DL 11.2-15.7 410) HEMATOCRIT (BEAKER) (test code = 33.4 % 34.1-44.9 L 411) MEAN CORPUSCULAR VOLUME (BEAKER) 90.0 fL 79.4-94.8 (test code = 753) MEAN CORPUSCULAR HEMOGLOBIN 31.3 pg 25.6-32.2 (BEAKER) (test code = 751) MEAN CORPUSCULAR HEMOGLOBIN CONC 34.7 GM/DL 32.2-35.5 (BEAKER) (test code = 752) RED CELL DISTRIBUTION WIDTH 13.4 % 11.7-14.4 (BEAKER) (test code = 412) PLATELET COUNT (BEAKER) (test 280 K/CU MM 150-450 code = 756) MEAN PLATELET VOLUME (BEAKER) 11.4 fL 9.4-12.3 (test code = 754) NUCLEATED RED BLOOD CELLS 0 /100 WBC 0-0 (BEAKER) (test code = 413) NEUTROPHILS RELATIVE PERCENT 70 % (BEAKER) (test code = 429) LYMPHOCYTES RELATIVE PERCENT 15 % (BEAKER) (test code = 430) MONOCYTES RELATIVE PERCENT 10 % (BEAKER) (test code = 431) EOSINOPHILS RELATIVE PERCENT 5 % (BEAKER) (test code = 432) BASOPHILS RELATIVE PERCENT 0 % (BEAKER) (test code = 437) NEUTROPHILS ABSOLUTE COUNT 7.97 K/ L 1.56-6.13 H (BEAKER) (test code = 670) LYMPHOCYTES ABSOLUTE COUNT 1.68 K/ L 1.18-3.74 (BEAKER) (test code = 414) MONOCYTES ABSOLUTE COUNT (BEAKER) 1.13 K/ L 0.24-0.36 H (test code = 415) EOSINOPHILS ABSOLUTE COUNT 0.55 K/ L 0.04-0.36 H (BEAKER) (test code = 416) BASOPHILS ABSOLUTE COUNT (BEAKER) 0.04 K/ L 0.01-0.08 (test code = 417) IMMATURE GRANULOCYTES-RELATIVE 1 % 0-1 PERCENT (BEAKER) (test code = 2801) POCT-GLUCOSE [id number] 21:05:00 Test Item Value Reference Range Interpretation Comments POC-GLUCOSE METER 145 mg/dL 70-110 H : TESTED Beck Moore [facility] 6720 (BEAKER) (test code = CHRISTIANO [place], 1538) [address]: Corrosion Engineer/Techni thu ID = [id number] for LUCRETIA AGUIAR POCT-GLUCOSE [id number] 17:02:00 Test Item Value Reference Range Interpretation Comments POC-GLUCOSE METER 169 mg/dL 70-110 H : Notified RN/MD: (SAUNDRA) (test code = TESTED AT [facility] 67 1538) [facility], [address]: Corrosion Engineer/Techni thu ID = [id number] for HU NT, JOSE MIGUEL C. DIFFICILE GDH [id number] 13:21:00 Test Item Value Reference Range Interpretation Comments CDT TOXIN (test code Negative Negative = [id number]) CDT GDH ANTIGEN (test Negative Negative No ind ication of code = [id number]) Clostridi um difficile infection and n o colonization. Discontinue ent you isolation and t herapy. Testing performed by ViClone Rapid Cassette Assay. For GDH, published sensitivity of the assay is 98.7% compared to cytotoxicity testing. For Toxin AB, published sensitivity is 87.8% and specificity 99.4% compared to cytotoxicity testing.Verification of kit performance was done by the [facility] Microbiology Lab prior to clinical use.POCT-GLUCOSE [id number] 11:57:00 Test Item Value Reference Range Interpretation Comments POC-GLUCOSE METER 169 mg/dL 70-110 H : [facility]ED [facility] T [facility] 6720 ([facility]) (test code = [facility], 153) [address]: Corrosion Engineer/Techni thu ID = [id number] for HU NT, JOSE MIGUEL POCT-GLUCOSE [id number] 09:15:00 Test Item Value Reference Range Interpretation Comments POC-GLUCOSE METER 116 mg/dL 70-110 H : TESTED A T [facility] 6720 ([facility]) (test code = [facility], 153) [address]: Corrosion Engineer/Techni thu ID = [id number] for HU NT, JOSE MIGUEL POCT-GLUCOSE [id number] 09:09:00 Test Item Value Reference Range Interpretation Comments POC-GLUCOSE METER 175 mg/dL 70-110 H : TESTED A T [facility] 6720 ([facility]) (test code = [facility], 153) [address]: Corrosion Engineer/Techni thu ID = [id number] for LUCRETIA AGUIAR BASIC METABOLIC [id number] 07:00:00 Test Item Value Reference Range Interpretation Comments SODIUM ([facility]) 138 meq/L 136-145 (test code = 381) POTASSIUM (BEAKER) 3.8 meq/L 3.5-5.1 (test code = 379) CHLORIDE (BEAKER) 106 meq/L 98-107 (test code = 382) CO2 (BEAKER) (test 26 meq/L 22-29 code = 355) BLOOD UREA NITROGEN 17 mg/dL 7-21 (BEAKER) (test code = 354) CREATININE (BEAKER) 0.83 mg/dL 0.57-1.25 (test code = 358) GLUCOSE RANDOM 123 mg/dL 70-105 H (BEAKER) (test code = 652) CALCIUM (BEAKER) 8.5 mg/dL 8.4-10.2 (test code = 697) EGFR (BEAKER) (test 69 mL/min/1.73 ESTIMA CORNELIUS GFR IS code = 1092) sq m NOT ACCURATE CREATININE CLEARANCE IN PREDICTING GLOMERULAR FILTRATION RATE . ESTIMATED GFR I S NOT APPLICABLE FOR DIALYSIS PATIEN TS. Corrosion Engineer ID - PIAYA LCBC W/PLT COUNT & AUTO [id number] 06:12:00 Test Item Value Reference Range Interpretation Comments WHITE BLOOD CELL COUNT (BEAKER) 11.2 K/ L 3.5-10.5 H (test code = 775) RED BLOOD CELL COUNT (BEAKER) 3.48 M/ L 3.93-5.22 L (test code = 761) HEMOGLOBIN (BEAKER) (test code = 10.4 GM/DL 11.2-15.7 L 410) HEMATOCRIT (BEAKER) (test code = 31.2 % 34.1-44.9 L 411) MEAN CORPUSCULAR VOLUME (BEAKER) 89.7 fL 79.4-94.8 (test code = 753) MEAN CORPUSCULAR HEMOGLOBIN 29.9 pg 25.6-32.2 (BEAKER) (test code = 751) MEAN CORPUSCULAR HEMOGLOBIN CONC 33.3 GM/DL 32.2-35.5 (BEAKER) (test code = 752) RED CELL DISTRIBUTION WIDTH 13.3 % 11.7-14.4 (BEAKER) (test code = 412) PLATELET COUNT (BEAKER) (test 235 K/CU MM 150-450 code = 756) MEAN PLATELET VOLUME (BEAKER) 11.5 fL 9.4-12.3 (test code = 754) NUCLEATED RED BLOOD CELLS 0 /100 WBC 0-0 (BEAKER) (test code = 413) NEUTROPHILS RELATIVE PERCENT 71 % (BEAKER) (test code = 429) LYMPHOCYTES RELATIVE PERCENT 14 % (BEAKER) (test code = 430) MONOCYTES RELATIVE PERCENT 9 % (BEAKER) (test code = 431) EOSINOPHILS RELATIVE PERCENT 5 % (BEAKER) (test code = 432) BASOPHILS RELATIVE PERCENT 0 % (BEAKER) (test code = 437) NEUTROPHILS ABSOLUTE COUNT 7.94 K/ L 1.56-6.13 H (BEAKER) (test code = 670) LYMPHOCYTES ABSOLUTE COUNT 1.57 K/ L 1.18-3.74 (BEAKER) (test code = 414) MONOCYTES ABSOLUTE COUNT (BEAKER) 1.01 K/ L 0.24-0.36 H (test code = 415) EOSINOPHILS ABSOLUTE COUNT 0.52 K/ L 0.04-0.36 H (BEAKER) (test code = 416) BASOPHILS ABSOLUTE COUNT (BEAKER) 0.03 K/ L 0.01-0.08 (test code = 417) IMMATURE GRANULOCYTES-RELATIVE 1 % 0-1 PERCENT (BEAKER) (test code = 2801) POCT-GLUCOSE [id number] 17:46:00 Test Item Value Reference Range Interpretation Comments POC-GLUCOSE METER 152 mg/dL 70-110 H : TESTED A T [facility] 6720 (BEAKER) (test code = CHRISTIANO Priscila [facility], 1538) [address]: Corrosion Engineer/Techni thu ID = [id number] for AK INSONU, MEDHAT FL, ESOPH, SWALLOW FUNCTION, WITH CINE OR [id number] 16:52:00JAMIE w/Javad for exam:->dysphagia/aspiration s/p acute CVAFINAL REPORT Modified barium swallow exam with speech pathology service CLINICAL HISTORY: dysphagia/aspiration s/p acute CVA IMPRESSION: Please see the speech pathology service report for details. Barium contrast of multiple consistencies is given to the patient to swallow. Fluoroscopic observation is performed during swallowing. There is penetration with thin liquids and nectar. Fluoro time: Three minutes Number of images: 17 Signed: Antonio Sparksort Verified Date/Time: 02/07/2020 16:52:09 Reading Location: [facility] C0X Ortho Consult Reading Room BASI METABOLIC [id number] 15:13:00 Test Item Value Reference Range Interpretation Comments SODIUM (BEAKER) 136 meq/L 136-145 (test code = 381) POTASSIUM (BEAKER) 3.9 meq/L 3.5-5.1 (test code = 379) CHLORIDE (BEAKER) 106 meq/L 98-107 (test code = 382) CO2 (BEAKER) (test 25 meq/L 22-29 code = 355) BLOOD UREA NITROGEN 13 mg/dL 7-21 (BEAKER) (test code = 354) CREATININE (BEAKER) 0.82 mg/dL 0.57-1.25 (test code = 358) GLUCOSE RANDOM 156 mg/dL 70-105 H (BEAKER) (test code = 652) CALCIUM (BEAKER) 8.6 mg/dL 8.4-10.2 (test code = 697) EGFR (BEAKER) (test 70 mL/min/1.73 ESTIMA CORNELIUS GFR IS code = 1092) sq m NOT ACCURATE CREATININE CLEARANCE IN PREDICTING GLOMERULAR FILTRATION RATE . ESTIMATED GFR I S NOT APPLICABLE FOR DIALYSIS PATIEN TS. Corrosion Engineer ID - BSPOCT-GLUCOSE [id number] 12:17:00 Test Item Value Reference Range Interpretation Comments POC-GLUCOSE METER 212 mg/dL 70-110 H : TESTED A T [facility] 6720 (BEAKER) (test code = [facility], 1538) [address]: Corrosion Engineer/Techni thu ID = [id number] for AK INSONU, MEDHAT POCT-GLUCOSE [id number] 09:57:00 Test Item Value Reference Range Interpretation Comments POC-GLUCOSE METER 114 mg/dL 70-110 H : TESTED A T [facility] 6720 (BEAKER) (test code = [facility], 1538) [address]: Corrosion Engineer/Techni thu ID = [id number] for AK INSONU, MEDHAT POCT-GLUCOSE [id number] 09:47:00 Test Item Value Reference Range Interpretation Comments POC-GLUCOSE METER 108 mg/dL 70-110 : TESTED A T [facility] 6720 (BEAKER) (test code = [facility], 1538) [address]: Corrosion Engineer/Techni thu ID = [id number] for LATFELI HIGGINS ICE POCT-GLUCOSE [id number] 09:43:00 Test Item Value Reference Range Interpretation Comments POC-GLUCOSE METER 138 mg/dL 70-110 H : TESTED A T [facility] 6720 (BEAKER) (test code [facility], = 1538) [address]: Corrosion Engineer/Techni thu ID = [id number] for DAVID KAMARA POCT-GLUCOSE [id number] 09:36:00 Test Item Value Reference Range Interpretation Comments POC-GLUCOSE METER 154 mg/dL 70-110 H : TESTED A T [facility] 6720 (BEAKER) (test code [facility], = 1538) [address]: Corrosion Engineer/Techni thu ID = [id number] for DAVID KAMARA BASIC METABOLIC [id number] 05:48:00 Test Item Value Reference Range Interpretation Comments SODIUM (BEAKER) 139 meq/L 136-145 (test code = 381) POTASSIUM (BEAKER) 3.8 meq/L 3.5-5.1 (test code = 379) CHLORIDE (BEAKER) 107 meq/L 98-107 (test code = 382) CO2 (BEAKER) (test 23 meq/L 22-29 code = 355) BLOOD UREA NITROGEN 13 mg/dL 7-21 (BEAKER) (test code = 354) CREATININE (BEAKER) 0.77 mg/dL 0.57-1.25 (test code = 358) GLUCOSE RANDOM 107 mg/dL 70-105 H (BEAKER) (test code = 652) CALCIUM (BEAKER) 9.0 mg/dL 8.4-10.2 (test code = 697) EGFR (BEAKER) (test 76 mL/min/1.73 ESTIMA CORNELIUS GFR IS code = 1092) sq m NOT ACCURATE CREATININE CLEARANCE IN PREDICTING GLOMERULAR FILTRATION RATE . ESTIMATED GFR I S NOT APPLICABLE FOR DIALYSIS PATIEN TS. Corrosion Engineer ID - EMILY MCBC W/PLT COUNT & AUTO [id number] 05:38:00 Test Item Value Reference Range Interpretation Comments WHITE BLOOD CELL COUNT (BEAKER) 11.5 K/ L 3.5-10.5 H (test code = 775) RED BLOOD CELL COUNT (BEAKER) 4.02 M/ L 3.93-5.22 (test code = 761) HEMOGLOBIN (BEAKER) (test code = 11.8 GM/DL 11.2-15.7 410) HEMATOCRIT (BEAKER) (test code = 35.4 % 34.1-44.9 411) MEAN CORPUSCULAR VOLUME (BEAKER) 88.1 fL 79.4-94.8 (test code = 753) MEAN CORPUSCULAR HEMOGLOBIN 29.4 pg 25.6-32.2 (BEAKER) (test code = 751) MEAN CORPUSCULAR HEMOGLOBIN CONC 33.3 GM/DL 32.2-35.5 (BEAKER) (test code = 752) RED CELL DISTRIBUTION WIDTH 13.2 % 11.7-14.4 (BEAKER) (test code = 412) PLATELET COUNT (BEAKER) (test 236 K/CU MM 150-450 code = 756) MEAN PLATELET VOLUME (BEAKER) 11.5 fL 9.4-12.3 (test code = 754) NUCLEATED RED BLOOD CELLS 0 /100 WBC 0-0 (BEAKER) (test code = 413) NEUTROPHILS RELATIVE PERCENT 77 % (BEAKER) (test code = 429) LYMPHOCYTES RELATIVE PERCENT 11 % (BEAKER) (test code = 430) MONOCYTES RELATIVE PERCENT 7 % (BEAKER) (test code = 431) EOSINOPHILS RELATIVE PERCENT 4 % (BEAKER) (test code = 432) BASOPHILS RELATIVE PERCENT 0 % (BEAKER) (test code = 437) NEUTROPHILS ABSOLUTE COUNT 8.89 K/ L 1.56-6.13 H (BEAKER) (test code = 670) LYMPHOCYTES ABSOLUTE COUNT 1.25 K/ L 1.18-3.74 (BEAKER) (test code = 414) MONOCYTES ABSOLUTE COUNT (BEAKER) 0.80 K/ L 0.24-0.36 H (test code = 415) EOSINOPHILS ABSOLUTE COUNT 0.40 K/ L 0.04-0.36 H (BEAKER) (test code = 416) BASOPHILS ABSOLUTE COUNT (BEAKER) 0.05 K/ L 0.01-0.08 (test code = 417) IMMATURE GRANULOCYTES-RELATIVE 1 % 0-1 PERCENT (BEAKER) (test code = 2801) SARS-COV2/RT-PCR ([facility])2020-02-06 07:28:00 Test Item Value Reference Range Interpretation Comments SARS-COV2/RT-PCR (test code = Negative Not Detected, Negative [id number]) SARS-COV-2 PERFORMING LAB CPL (test code = [id number]) BASIC METABOLIC [id number] 05:22:00 Test Item Value Reference Range Interpretation Comments SODIUM (BEAKER) 139 meq/L 136-145 (test code = 381) POTASSIUM (BEAKER) 3.9 meq/L 3.5-5.1 (test code = 379) CHLORIDE (BEAKER) 109 meq/L 98-107 H (test code = 382) CO2 (BEAKER) (test 25 meq/L 22-29 code = 355) BLOOD UREA NITROGEN 13 mg/dL 7-21 (BEAKER) (test code = 354) CREATININE (BEAKER) 0.76 mg/dL 0.57-1.25 (test code = 358) GLUCOSE RANDOM 106 mg/dL 70-105 H (BEAKER) (test code = 652) CALCIUM (BEAKER) 8.4 mg/dL 8.4-10.2 (test code = 697) EGFR (BEAKER) (test 77 mL/min/1.73 ESTIMA CORNELIUS GFR IS code = 1092) sq m NOT ACCURATE CREATININE CLEARANCE IN PREDICTING GLOMERULAR FILTRATION RATE . ESTIMATED GFR I S NOT APPLICABLE FOR DIALYSIS PATIEN TS. Corrosion Engineer ID - EMILY MCBC W/PLT COUNT & AUTO [id number] 04:57:00 Test Item Value Reference Range Interpretation Comments WHITE BLOOD CELL COUNT (BEAKER) 8.7 K/ L 3.5-10.5 (test code = 775) RED BLOOD CELL COUNT (BEAKER) 3.56 M/ L 3.93-5.22 L (test code = 761) HEMOGLOBIN (BEAKER) (test code = 10.3 GM/DL 11.2-15.7 L 410) HEMATOCRIT (BEAKER) (test code = 31.6 % 34.1-44.9 L 411) MEAN CORPUSCULAR VOLUME (BEAKER) 88.8 fL 79.4-94.8 (test code = 753) MEAN CORPUSCULAR HEMOGLOBIN 28.9 pg 25.6-32.2 (BEAKER) (test code = 751) MEAN CORPUSCULAR HEMOGLOBIN CONC 32.6 GM/DL 32.2-35.5 (BEAKER) (test code = 752) RED CELL DISTRIBUTION WIDTH 13.1 % 11.7-14.4 (BEAKER) (test code = 412) PLATELET COUNT (BEAKER) (test 198 K/CU MM 150-450 code = 756) MEAN PLATELET VOLUME (BEAKER) 11.4 fL 9.4-12.3 (test code = 754) NUCLEATED RED BLOOD CELLS 0 /100 WBC 0-0 (BEAKER) (test code = 413) NEUTROPHILS RELATIVE PERCENT 67 % (BEAKER) (test code = 429) LYMPHOCYTES RELATIVE PERCENT 21 % (BEAKER) (test code = 430) MONOCYTES RELATIVE PERCENT 8 % (BEAKER) (test code = 431) EOSINOPHILS RELATIVE PERCENT 3 % (BEAKER) (test code = 432) BASOPHILS RELATIVE PERCENT 0 % (BEAKER) (test code = 437) NEUTROPHILS ABSOLUTE COUNT 5.82 K/ L 1.56-6.13 (BEAKER) (test code = 670) LYMPHOCYTES ABSOLUTE COUNT 1.87 K/ L 1.18-3.74 (BEAKER) (test code = 414) MONOCYTES ABSOLUTE COUNT (BEAKER) 0.69 K/ L 0.24-0.36 H (test code = 415) EOSINOPHILS ABSOLUTE COUNT 0.27 K/ L 0.04-0.36 (BEAKER) (test code = 416) BASOPHILS ABSOLUTE COUNT (BEAKER) 0.03 K/ L 0.01-0.08 (test code = 417) IMMATURE GRANULOCYTES-RELATIVE 1 % 0-1 PERCENT (BEAKER) (test code = 2801) POCT-GLUCOSE [id number] 21:19:00 Test Item Value Reference Range Interpretation Comments POC-GLUCOSE METER 167 mg/dL 70-110 H : Notified RN/MD: ([facility]) (test code = TESTED AT [facility] 6720 1538) [facility], [address]: Corrosion Engineer/Techni thu ID = [id number] for LATHBRIDGE, FELI ICE POCT-GLUCOSE [id number] 17:21:00 Test Item Value Reference Range Interpretation Comments POC-GLUCOSE METER 156 mg/dL 70-110 H : TESTED A T [facility] 6720 ([facility]) ([facility] = [facility], 1538) [address]: Corrosion Engineer/Techni thu ID = [id number] for AK INSONU, MEDHAT POCT-GLUCOSE [id number] 12:38:00 Test Item Value Reference Range Interpretation Comments POC-GLUCOSE METER 122 mg/dL 70-110 H : TESTED A T [facility] 6720 (BEAKER) (test code = [facility], 1538) [address]: Corrosion Engineer/Techni thu ID = [id number] for MAC AGUILARU, MEDHAT POCT-GLUCOSE [id number] 09:17:00 Test Item Value Reference Range Interpretation Comments POC-GLUCOSE METER 114 mg/dL 70-110 H : TESTED A T [facility] 6720 (BEAKER) (test code = [facility], 1538) [address]: Corrosion Engineer/Techni thu ID = [id number] for AK INSONU, MEDHAT BASIC METABOLIC [id number] 07:53:00 Test Item Value Reference Range Interpretation Comments SODIUM (BEAKER) 140 meq/L 136-145 (test code = 381) POTASSIUM (BEAKER) 3.9 meq/L 3.5-5.1 (test code = 379) CHLORIDE (BEAKER) 107 meq/L 98-107 (test code = 382) CO2 (BEAKER) (test 28 meq/L 22-29 code = 355) BLOOD UREA NITROGEN 15 mg/dL 7-21 (BEAKER) (test code = 354) CREATININE (BEAKER) 0.87 mg/dL 0.57-1.25 (test code = 358) GLUCOSE RANDOM 112 mg/dL 70-105 H (BEAKER) (test code = 652) CALCIUM (BEAKER) 8.6 mg/dL 8.4-10.2 (test code = 697) EGFR (BEAKER) (test 66 mL/min/1.73 ESTIMA CORNELIUS GFR IS code = 1092) sq m NOT ACCURATE CREATININE CLEARANCE IN PREDICTING GLOMERULAR FILTRATION RATE . ESTIMATED GFR I S NOT APPLICABLE FOR DIALYSIS PATIEN TS. Corrosion Engineer ID - [id number] LCBC W/PLT COUNT & AUTO [id number] 07:24:00 Test Item Value Reference Range Interpretation Comments WHITE BLOOD CELL COUNT (BEAKER) 9.7 K/ L 3.5-10.5 (test code = 775) RED BLOOD CELL COUNT (BEAKER) 3.46 M/ L 3.93-5.22 L (test code = 761) HEMOGLOBIN (BEAKER) (test code = 10.5 GM/DL 11.2-15.7 L 410) HEMATOCRIT (BEAKER) (test code = 31.6 % 34.1-44.9 L 411) MEAN CORPUSCULAR VOLUME (BEAKER) 91.3 fL 79.4-94.8 (test code = 753) MEAN CORPUSCULAR HEMOGLOBIN 30.3 pg 25.6-32.2 (BEAKER) (test code = 751) MEAN CORPUSCULAR HEMOGLOBIN CONC 33.2 GM/DL 32.2-35.5 (BEAKER) (test code = 752) RED CELL DISTRIBUTION WIDTH 13.6 % 11.7-14.4 (BEAKER) (test code = 412) PLATELET COUNT (BEAKER) (test 187 K/CU MM 150-450 code = 756) MEAN PLATELET VOLUME (BEAKER) 12.4 fL 9.4-12.3 H (test code = 754) NUCLEATED RED BLOOD CELLS 0 /100 WBC 0-0 (BEAKER) (test code = 413) NEUTROPHILS RELATIVE PERCENT 69 % (BEAKER) (test code = 429) LYMPHOCYTES RELATIVE PERCENT 20 % (BEAKER) (test code = 430) MONOCYTES RELATIVE PERCENT 8 % (BEAKER) (test code = 431) EOSINOPHILS RELATIVE PERCENT 2 % (BEAKER) (test code = 432) BASOPHILS RELATIVE PERCENT 0 % (BEAKER) (test code = 437) NEUTROPHILS ABSOLUTE COUNT 6.71 K/ L 1.56-6.13 H (BEAKER) (test code = 670) LYMPHOCYTES ABSOLUTE COUNT 1.92 K/ L 1.18-3.74 (BEAKER) (test code = 414) MONOCYTES ABSOLUTE COUNT (BEAKER) 0.79 K/ L 0.24-0.36 H (test code = 415) EOSINOPHILS ABSOLUTE COUNT 0.15 K/ L 0.04-0.36 (BEAKER) (test code = 416) BASOPHILS ABSOLUTE COUNT (BEAKER) 0.03 K/ L 0.01-0.08 (test code = 417) IMMATURE GRANULOCYTES-RELATIVE 1 % 0-1 PERCENT (BEAKER) (test code = 2801) POCT-GLUCOSE [id number] 00:07:00 Test Item Value Reference Range Interpretation Comments POC-GLUCOSE METER 107 mg/dL 70-110 : TESTED A [facility] [facility] 6720 (BEAKER) (test code = CHRISTIANO RUIZ 1538) [id number]: Corrosion Engineer/Techni thu ID = [id number] for MERCEDES WISE POCT-GLUCOSE [id number] 17:59:00 Test Item Value Reference Range Interpretation Comments POC-GLUCOSE METER 142 mg/dL 70-110 H : TESTED A T [facility] 6720 (BEAKER) (test code = CHRISTIANO Francois [facility], 1538) 72001: Corrosion Engineer/Techni thu ID = [id number] for AK MEDHAT VALENTINE NV, ANGIOGRAM, [id number] 14:15:00Reason for exam:->strokeFINAL REPORT DATE OF PROCEDURE: 02-01-2020 SURGEON: Kel Ahuja M.D.PRIVATE BRANCH EXCHANGE INSTALLER: Kita Otto MD PREOPERATIVE DIAGNOSIS: Stroke POST OPERATIVE DIAGNOSIS: Stroke, left paraophthalmic aneurysm PROCEDURE: Cerebral Angiogram ANESTHESIA: GETA ESTIMATED BLOOD LOSS: Minimal COMPLICATIONS: None INDICATIONS: The patient is a 64YOF who presented with acute onset R sided weakness and dysarthria, s/p tPA at outside hospital. CTA was concerning for left M1 partial occlusion. Angiogram and possible thrombectomy was requested urgently due to stroke symptoms. PROCEDURE: The procedure was performed under emergency consent given patient's mental status and no family membersavailable. A time-out was performed. Both groins were prepped in the usual sterile fashion using Chloraprep, and sterilely draped. The skin over the right femoral artery was anesthetized with 1% lidocaine. A single wall puncture of the right femoral artery was performed using a micropuncture set and dilator and a 8-Fr short sheath was inserted into the right common femoral artery and maintained on heparinized flush. Using coaxial technique, an Infinity catheter was advanced over a VTK catheter intothe descending aorta, back-bled, and flushed in the usual fashion. Using coaxial technique, the VTK catheter was advanced into the aortic arch, and with the aid of the roadmapping, digital fluoroscopy,and careful guidewire manipulation the left common carotid and left internal carotid arteries were catheterized. An angled glide catheter was similarly used to catheterize the left common carotid and left vertebral arteries. Upon each successive selective catheterization, digital subtraction angiography using the appropriate rate and volume of contrast in multiple projections was performed. Three-dimensional rotational angiography was performed. These images were post-processed on an independent workstation, and assessed by Dr. Ahuja. The catheter was removed. The femoral sheath was removed andhemostasis was achieved with an angioseal closure device. The patient tolerated the procedure well and was taken to recovery in stable condition. FINDINGS: RIGHT COMMON FEMORAL ARTERY (DSA - PA, LATERAL - ILIAC) The sheath enters above the femoral bifurcation. The femoral artery and bifurcation are wid lizzie patent without evidence of ulceration or stenosis. RIGHT COMMON CAROTID ARTERY (DSA - PA, LATERAL- HEAD) There is a medium size posterior communicating artery. There is no spontaneous crossfilling across the anterior communicating artery . No vascular malformation or arteriovenous shunting is noted. No stenosis or vasospasm is observed. No significant abnormalities are seen in the capillary and venous phases. The venous phase demonstrates patent transverse and sigmoid sinuses. The visualized portions of the external carotid artery and its branches are normal without evidence of ulceration or stenosis. There is no evidence of arteriovenous shunting. The venous phase is normal. LEFT COMMON CAROTID ARTERY (ROADMAP- PA, LATERAL - CERVICAL) The origins of the left internal and external carotid arteries are widely patent without evidence of ulceration or stenosis. 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 The aneurysm has a narrow neck (2mm) and some irregularity in shape. The M1 (sphenoidal) segment of the left middle cerebral artery has evidence of atherosclerotic disease with mild stenosis and irregularity of the lumen. There is no thrombus or occlusion of the vessel. There is no spontaneous crossfilling across the anterior communicating artery. There is a small size posterior communicating artery. No vascular malformations or vasospasm is observed. No significant abnormalities are seen in the capillary and venous phases. The venous phase demonstrates patent transverse andsigmoid sinuses. LEFT SUBCLAVIAN ARTERY (ROADMAP - PA - CERVICAL) The origin of the left vertebral artery is patent without significant stenosis. LEFT VERTEBRAL ARTERY (DSA - PA, LATERAL, DAMARIS'S - HEAD) The left vertebral artery is patent without significant stenotic lesion. The basilar artery showsno significant abnormality. 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 There is atherosclerotic disease of the bilateral P1 segments of the posterior cerebral arteries resulting in mild stenosis without acute occlusion. There is contrast reflux into the right vertebral artery with opacification of the right posterior inferior cerebellar artery. No aneurysms or vascular malformations are noted in the vertebrobasilar system. The venous phase shows patent bilateral transverse and sigmoid sinuses. SUPERVISION AND INTERPRETATION: Angiographic study demonstrates: 1. 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 intracranial atherosclerotic disease involvingthe M1 segment of the left middle cerebral artery and the P1 segments of bilateral posterior cerebral arteries. No acute thrombus or occlusion identified. No immediate technical or clinical complications. Signed: Kel Ahuja MDReport Verified Date/Time: 02/04/2020 14:15:59 [facility] 02:15 PMPOCT-GLUCOSE [id number] 07:42:00 Test Item Value Reference Range Interpretation Comments POC-GLUCOSE METER 125 mg/dL 70-110 H : TESTED A T [facility] 6720 (BEAKER) (test code = [facility], 1538) 29434: Corrosion Engineer/Techni thu ID = [id number] for AK MEME, MEDHAT POCT-GLUCOSE [id number] 06:29:00 Test Item Value Reference Range Interpretation Comments POC-GLUCOSE METER 125 mg/dL 70-110 H : TESTED A T [facility] 6720 (BEAKER) (test code = [facility], 1538) 06654: Corrosion Engineer/Techni thu ID = [id number] for DO VE, CHEKARA BASIC METABOLIC [id number] 05:07:00 Test Item Value Reference Range Interpretation Comments SODIUM (BEAKER) 141 meq/L 136-145 (test code = 381) POTASSIUM (BEAKER) 3.7 meq/L 3.5-5.1 (test code = 379) CHLORIDE (BEAKER) 106 meq/L 98-107 (test code = 382) CO2 (BEAKER) (test 28 meq/L 22-29 code = 355) BLOOD UREA NITROGEN 12 mg/dL 7-21 (BEAKER) (test code = 354) CREATININE (BEAKER) 0.78 mg/dL 0.57-1.25 (test code = 358) GLUCOSE RANDOM 124 mg/dL 70-105 H (BEAKER) (test code = 652) CALCIUM (BEAKER) 8.4 mg/dL 8.4-10.2 (test code = 697) EGFR (BEAKER) (test 75 mL/min/1.73 ESTIMA CORNELIUS GFR IS code = 1092) sq m NOT ACCURATE CREATININE CLEARANCE IN PREDICTING GLOMERULAR FILTRATION RATE . ESTIMATED GFR I S NOT APPLICABLE FOR DIALYSIS PATIEN TS. Corrosion Engineer ID - PIAYA LCBC W/PLT COUNT & AUTO [id number] 04:44:00 Test Item Value Reference Range Interpretation Comments WHITE BLOOD CELL COUNT (BEAKER) 11.5 K/ L 3.5-10.5 H (test code = 775) RED BLOOD CELL COUNT (BEAKER) 3.52 M/ L 3.93-5.22 L (test code = 761) HEMOGLOBIN (BEAKER) (test code = 10.6 GM/DL 11.2-15.7 L 410) HEMATOCRIT (BEAKER) (test code = 32.4 % 34.1-44.9 L 411) MEAN CORPUSCULAR VOLUME (BEAKER) 92.0 fL 79.4-94.8 (test code = 753) MEAN CORPUSCULAR HEMOGLOBIN 30.1 pg 25.6-32.2 (BEAKER) (test code = 751) MEAN CORPUSCULAR HEMOGLOBIN CONC 32.7 GM/DL 32.2-35.5 (BEAKER) (test code = 752) RED CELL DISTRIBUTION WIDTH 13.7 % 11.7-14.4 (BEAKER) (test code = 412) PLATELET COUNT (BEAKER) (test 158 K/CU MM 150-450 code = 756) MEAN PLATELET VOLUME (BEAKER) 12.2 fL 9.4-12.3 (test code = 754) NUCLEATED RED BLOOD CELLS 0 /100 WBC 0-0 (BEAKER) (test code = 413) NEUTROPHILS RELATIVE PERCENT 78 % (BEAKER) (test code = 429) LYMPHOCYTES RELATIVE PERCENT 14 % (BEAKER) (test code = 430) MONOCYTES RELATIVE PERCENT 7 % (BEAKER) (test code = 431) EOSINOPHILS RELATIVE PERCENT 1 % (BEAKER) (test code = 432) BASOPHILS RELATIVE PERCENT 0 % (BEAKER) (test code = 437) NEUTROPHILS ABSOLUTE COUNT 8.92 K/ L 1.56-6.13 H (BEAKER) (test code = 670) LYMPHOCYTES ABSOLUTE COUNT 1.57 K/ L 1.18-3.74 (BEAKER) (test code = 414) MONOCYTES ABSOLUTE COUNT (BEAKER) 0.82 K/ L 0.24-0.36 H (test code = 415) EOSINOPHILS ABSOLUTE COUNT 0.06 K/ L 0.04-0.36 (BEAKER) (test code = 416) BASOPHILS ABSOLUTE COUNT (BEAKER) 0.04 K/ L 0.01-0.08 (test code = 417) IMMATURE GRANULOCYTES-RELATIVE 1 % 0-1 PERCENT (BEAKER) (test code = 2801) POCT-GLUCOSE [id number] 00:04:00 Test Item Value Reference Range Interpretation Comments POC-GLUCOSE METER 117 mg/dL 70-110 H : TESTED A T [facility] 6720 (BEAKER) (test code = [facility], 153) 60834: Corrosion Engineer/Techni thu ID = [id number] for MERCEDES WISE POCT-GLUCOSE [id number] 12:09:00 Test Item Value Reference Range Interpretation Comments POC-GLUCOSE METER 174 mg/dL 70-110 H : TESTED A T [facility] 6720 (BEAKER) (test code = [facility], 1538) 40083: Corrosion Engineer/Techni thu ID = [id number] for DENNYS SLOAN POCT-GLUCOSE [id number] 06:06:00 Test Item Value Reference Range Interpretation Comments POC-GLUCOSE METER 109 mg/dL 70-110 : TESTED A T [facility] 6720 (BEAKER) (test code = [facility], 1538) 56505: Corrosion Engineer/Techni thu ID = [id number] for KAITLYN AGUIAR [id number] 05:16:00 Test Item Value Reference Range Interpretation Comments PROCALCITONIN (BEAKER) (test code 0.05 ng/mL <0.05 H = 3036) SEPSIS RISK (ng/mL)Low: 0.05-0.50Intermediate: 0.51-2.00High: >=2.01BASIC METABOLIC [id number] 05:04:00 Test Item Value Reference Range Interpretation Comments SODIUM (BEAKER) 144 meq/L 136-145 (test code = 381) POTASSIUM (BEAKER) 3.8 meq/L 3.5-5.1 (test code = 379) CHLORIDE (BEAKER) 115 meq/L 98-107 H (test code = 382) CO2 (BEAKER) (test 25 meq/L 22-29 code = 355) BLOOD UREA NITROGEN 10 mg/dL 7-21 (BEAKER) (test code = 354) CREATININE (BEAKER) 0.74 mg/dL 0.57-1.25 (test code = 358) GLUCOSE RANDOM 115 mg/dL 70-105 H (BEAKER) (test code = 652) CALCIUM (BEAKER) 7.5 mg/dL 8.4-10.2 L (test code = 697) EGFR (BEAKER) (test 79 mL/min/1.73 ESTIMA CORNELIUS GFR IS code = 1092) sq m NOT ACCURATE CREATININE CLEARANCE IN PREDICTING GLOMERULAR FILTRATION RATE . ESTIMATED GFR I S NOT APPLICABLE FOR DIALYSIS PATIEN TS. Corrosion Engineer ID Jaren JUNG GÉNESISROPONIClay [id number] 05:02:00 Test Item Value Reference Range Interpretation Comments TROPONIN I (BEAKER) (test code = 397) < ng/mL 0.00-0.03 Troponin I (TnI) levels must be interpreted in the context of the presenting symptoms and the clinical findings. Elevated TnI levels indicate myocardial damage, but are not specific for ischemic heart disease. Elevated TnI levels are seen in patients with other cardiac conditions (including myocarditis and congestive heart failure), and slight TnI elevations occur in patients with other conditions, including sepsis, renal failure, acidosis, acute neurological disease, and persistent tachyarrhythmia.Corrosion Engineer DAYANNA JUNG WCBC W/PLT COUNT & AUTO [id number] 04:56:00 Test Item Value Reference Range Interpretation Comments WHITE BLOOD CELL COUNT (BEAKER) 9.1 K/ L 3.5-10.5 (test code = 775) RED BLOOD CELL COUNT (BEAKER) 3.21 M/ L 3.93-5.22 L (test code = 761) HEMOGLOBIN (BEAKER) (test code = 9.8 GM/DL 11.2-15.7 L 410) HEMATOCRIT (BEAKER) (test code = 29.6 % 34.1-44.9 L 411) MEAN CORPUSCULAR VOLUME (BEAKER) 92.2 fL 79.4-94.8 (test code = 753) MEAN CORPUSCULAR HEMOGLOBIN 30.5 pg 25.6-32.2 (BEAKER) (test code = 751) MEAN CORPUSCULAR HEMOGLOBIN CONC 33.1 GM/DL 32.2-35.5 (BEAKER) (test code = 752) RED CELL DISTRIBUTION WIDTH 14.1 % 11.7-14.4 (BEAKER) (test code = 412) PLATELET COUNT (BEAKER) (test 125 K/CU MM 150-450 L code = 756) MEAN PLATELET VOLUME (BEAKER) 12.2 fL 9.4-12.3 (test code = 754) NUCLEATED RED BLOOD CELLS 0 /100 WBC 0-0 (BEAKER) (test code = 413) NEUTROPHILS RELATIVE PERCENT 75 % (BEAKER) (test code = 429) LYMPHOCYTES RELATIVE PERCENT 17 % (BEAKER) (test code = 430) MONOCYTES RELATIVE PERCENT 7 % (BEAKER) (test code = 431) EOSINOPHILS RELATIVE PERCENT 0 % (BEAKER) (test code = 432) BASOPHILS RELATIVE PERCENT 0 % (BEAKER) (test code = 437) NEUTROPHILS ABSOLUTE COUNT 6.79 K/ L 1.56-6.13 H (BEAKER) (test code = 670) LYMPHOCYTES ABSOLUTE COUNT 1.54 K/ L 1.18-3.74 (BEAKER) (test code = 414) MONOCYTES ABSOLUTE COUNT (BEAKER) 0.65 K/ L 0.24-0.36 H (test code = 415) EOSINOPHILS ABSOLUTE COUNT 0.04 K/ L 0.04-0.36 (BEAKER) (test code = 416) BASOPHILS ABSOLUTE COUNT (BEAKER) 0.02 K/ L 0.01-0.08 (test code = 417) IMMATURE GRANULOCYTES-RELATIVE 0 % 0-1 PERCENT (BEAKER) (test code = 2801) POCT-GLUCOSE [id number] 23:40:00 Test Item Value Reference Range Interpretation Comments POC-GLUCOSE METER 95 mg/dL 70-110 : TESTED Beck T [facility] 6720 (BEAKER) (test code = [facility] [place], 1538) 10504: Corrosion Engineer/Techni thu ID = [id number] for KAITLYN LOPEZ POCT-GLUCOSE [id number] 18:44:00 Test Item Value Reference Range Interpretation Comments POC-GLUCOSE METER 121 mg/dL 70-110 H : TESTED A T [facility] 6720 (BEAKER) (test code = [facility] [place], 1538) 94547: Corrosion Engineer/Techni thu ID = [id number] for Baudilio Merchant CT, BRAIN, WITHOUT [id number] 16:48:00FINAL REPORT CT, BRAIN, WITHOUT CONTRAST INDICATION: Stroke, follow up TECHNIQUE: Noncontrast axial imaging was obtained from the vertex to the skull base. Axial images were reconstructed using a bone algorithm. DOSE REDUCTION: Dose modulation, iterative reconstruction, and/or weight-based adjustment of the mA/kV was utilized to reduce the radiation dose to as low as reasonably achievable. COMPARISON: None. FINDINGS: Intracranial: Hypoattenuation involving the left basal ganglia consistent with acute infarct. Hyperattenuating foci within the peripheral left occipital lobe adjacent to the calvarium, favored to represent beam hardening artifact. No convincing intracranial hemorrhage or abnormal extra-axial collection. There is mild compression of the left frontal horn. No hydrocephalus. Osseous structures: No fracture. No suspicious lesion. Paranasal sinuses and mastoid air cells: No evidence of sinusitis. Mastoids are clear. Orbital contents: Globes are intact. IMPRESSION:Acute left MCA territory infarct involving the basal ganglia, causing compression of the left frontal horn. No hemorrhagic conversion. If there is persistent clinical concern for intracranial pathology, MR examination is recommended for further characterization. Signed: Meryl Resendiz MDReport Verified Date/Time: 02/02/2020 16:48:12 BLOOD GAS, [id number] 12:58:00 Test Item Value Reference Range Interpretation Comments PH ARTERIAL (BEAKER) (test code = 7.51 7.35-7.45 H 383) PCO2 ARTERIAL (BEAKER) (test code 27 mmHg 35-45 L = 384) PO2 ARTERIAL (BEAKER) (test code 202 mmHg 80-90 H = 385) O2 SATURATION ARTERIAL (BEAKER) 99.5 % 96.0-97.0 H (test code = 386) HCO3 ARTERIAL (BEAKER) (test code 21 mmol/L 21-29 = 388) BASE EXCESS ARTERIAL (BEAKER) -0.9 mmol/L -2.0-3.0 (test code = 387) PATIENT TEMPERATURE (BEAKER) 37.3 C (test code = 1818) FIO2 (BEAKER) (test code = 1819) 40.0 % [id number] 12:27:00 Test Item Value Reference Range Interpretation Comments RPR SCREEN (BEAKER) (test code = Nonreactive Nonreactive 420) POCT-GLUCOSE [id number] 11:45:00 Test Item Value Reference Range Interpretation Comments POC-GLUCOSE METER 178 mg/dL 70-110 H : TESTED A T [facility] 6720 (BEAKER) (test code = [facility], 1538) 38952: Corrosion Engineer/Techni thu ID = [id number] for NG SUBHASH JANE POCT-GLUCOSE [id number] 05:52:00 Test Item Value Reference Range Interpretation Comments POC-GLUCOSE METER 179 mg/dL 70-110 H : TESTED A T [facility] 6720 (BEAKER) (test code = [facility], 1538) 31550: Corrosion Engineer/Techni thu ID = [id number] for KAITLYN AGUIAR TROPONIN [id number] 04:41:00 Test Item Value Reference Range Interpretation Comments TROPONIN I (BEAKER) (test code = 397) < ng/mL 0.00-0.03 Troponin I (TnI) levels must be interpreted in the context of the presenting symptoms and the clinical findings. Elevated TnI levels indicate myocardial damage, but are not specific for ischemic heart disease. Elevated TnI levels are seen in patients with other cardiac conditions (including myocarditis and congestive heart failure), and slight TnI elevations occur in patients with other conditions, including sepsis, renal failure, acidosis, acute neurological disease, and persistent tachyarrhythmia.Corrosion Engineer ID - EMILY MBASIC METABOLIC [id number] 04:40:00 Test Item Value Reference Range Interpretation Comments SODIUM (BEAKER) (test 143 meq/L 136-145 code = 381) POTASSIUM (BEAKER) 3.7 meq/L 3.5-5.1 (test code = 379) CHLORIDE (BEAKER) 112 meq/L 98-107 H (test code = 382) CO2 (BEAKER) (test 23 meq/L 22-29 code = 355) BLOOD UREA NITROGEN 11 mg/dL 7-21 (BEAKER) (test code = 354) CREATININE (BEAKER) 0.85 mg/dL 0.57-1.25 (test code = 358) GLUCOSE RANDOM 199 mg/dL 70-105 H (BEAKER) (test code = 652) CALCIUM (BEAKER) 7.6 mg/dL 8.4-10.2 L (test code = 697) EGFR (BEAKER) (test INSUFFIC IENT CLINICAL code = 1092) DATA TO CALCULA TE ESTIMATED GFR. Corrosion Engineer DAYANNA DIAZ MLIPID [id number] 04:34:00 Test Item Value Reference Range Interpretation Comments TRIGLYCERIDES (BEAKER) (test code = 163 mg/dL 540) CHOLESTEROL (BEAKER) (test code = 216 mg/dL 631) HDL CHOLESTEROL (BEAKER) (test code 49 mg/dL = 976) LDL CHOLESTEROL CALCULATED (BEAKER) 134 mg/dL (test code = 633) Triglyceride Reference Range: Low Risk <150 Borderline 150-199 High Risk 200-499 Very High Risk >=500Cholesterol Reference Range: Low Risk <200 Borderline 200-239 High Risk >240HDL Cholesterol Reference Range: Low Risk >=60 High Risk <40LDL Cholesterol Reference Range: Optimal <100 Near Optimal 100-129 Borderline 130-159 High 160-189 Very High >=190 Corrosion Engineer DAYANNA - EMILY MCBC W/PLT COUNT & AUTO [id number] 04:28:00 Test Item Value Reference Range Interpretation Comments WHITE BLOOD CELL COUNT (BEAKER) 12.6 K/ L 3.5-10.5 H (test code = 775) RED BLOOD CELL COUNT (BEAKER) 3.65 M/ L 3.93-5.22 L (test code = 761) HEMOGLOBIN (BEAKER) (test code = 11.1 GM/DL 11.2-15.7 L 410) HEMATOCRIT (BEAKER) (test code = 32.5 % 34.1-44.9 L 411) MEAN CORPUSCULAR VOLUME (BEAKER) 89.0 fL 79.4-94.8 (test code = 753) MEAN CORPUSCULAR HEMOGLOBIN 30.4 pg 25.6-32.2 (BEAKER) (test code = 751) MEAN CORPUSCULAR HEMOGLOBIN CONC 34.2 GM/DL 32.2-35.5 (BEAKER) (test code = 752) RED CELL DISTRIBUTION WIDTH 13.4 % 11.7-14.4 (BEAKER) (test code = 412) PLATELET COUNT (BEAKER) (test 172 K/CU MM 150-450 code = 756) MEAN PLATELET VOLUME (BEAKER) 11.9 fL 9.4-12.3 (test code = 754) NUCLEATED RED BLOOD CELLS 0 /100 WBC 0-0 (BEAKER) (test code = 413) NEUTROPHILS RELATIVE PERCENT 87 % (BEAKER) (test code = 429) LYMPHOCYTES RELATIVE PERCENT 7 % (BEAKER) (test code = 430) MONOCYTES RELATIVE PERCENT 6 % (BEAKER) (test code = 431) EOSINOPHILS RELATIVE PERCENT 0 % (BEAKER) (test code = 432) BASOPHILS RELATIVE PERCENT 0 % (BEAKER) (test code = 437) NEUTROPHILS ABSOLUTE COUNT 10.94 K/ L 1.56-6.13 H (BEAKER) (test code = 670) LYMPHOCYTES ABSOLUTE COUNT 0.82 K/ L 1.18-3.74 L (BEAKER) (test code = 414) MONOCYTES ABSOLUTE COUNT (BEAKER) 0.77 K/ L 0.24-0.36 H (test code = 415) EOSINOPHILS ABSOLUTE COUNT 0.00 K/ L 0.04-0.36 L (BEAKER) (test code = 416) BASOPHILS ABSOLUTE COUNT (BEAKER) 0.02 K/ L 0.01-0.08 (test code = 417) IMMATURE GRANULOCYTES-RELATIVE 1 % 0-1 PERCENT (BEAKER) (test code = 2801) BLOOD GAS, [id number] 04:16:00 Test Item Value Reference Range Interpretation Comments PH ARTERIAL (BEAKER) (test code = 7.48 7.35-7.45 H 383) PCO2 ARTERIAL (BEAKER) (test code 28 mmHg 35-45 L = 384) PO2 ARTERIAL (BEAKER) (test code 165 mmHg 80-90 H = 385) O2 SATURATION ARTERIAL (BEAKER) 99.2 % 96.0-97.0 H (test code = 386) HCO3 ARTERIAL (BEAKER) (test code 20 mmol/L 21-29 L = 388) BASE EXCESS ARTERIAL (BEAKER) -2.0 mmol/L -2.0-3.0 (test code = 387) PATIENT TEMPERATURE (BEAKER) 37.3 C (test code = 1818) FIO2 (BEAKER) (test code = 1819) 40.0 % RAD, CHEST, 1 VIEW, NON [id number] 02:09:00Reason for exam:- >intubatedShould this be performed at the bedside?->YesFINAL REPORT Chest one view. Clinical history: intubated Comparison: Chest radiograph 02/01/2020. Technique: A single frontal view of the chest was obtained. Findings:There is anendotracheal tube in satisfactory position.The heart is normal size. The aorta is atherosclerotic. There is no focal pulmonary consolidation, pleural effusion or pneumothorax. There is no pulmonary edema. Signed: Jorge Naireport Verified Date/Time: 02/02/2020 02:09:24 Electronically signedby: JORGE NAIR MD on 02/02/2020 02:09 AMTROPONIN [id number] 00:32:00 Test Item Value Reference Range Interpretation Comments TROPONIN I (SAUNDRA) (test code = 397) < ng/mL 0.00-0.03 Troponin I (TnI) levels must be interpreted in the context of the presenting symptoms and the clinical findings. Elevated TnI levels indicate myocardial damage, but are not specific for ischemic heart disease. Elevated TnI levels are seen in patients with other cardiac conditions (including myocarditis and congestive heart failure), and slight TnI elevations occur in patients with other conditions, including sepsis, renal failure, acidosis, acute neurological disease, and persistent tachyarrhythmia.Corrosion Engineer ID - BSPOCT-GLUCOSE METER 2020-02-01 23:43:00 Test Item Value Reference Range Interpretation Comments POC-GLUCOSE METER 189 mg/dL 70-110 H : [facility]ED [facility] T [facility] (BEERIC) (test code = [place], 1538) 927[address]: Corrosion Engineer/Techni thu ID = [id number] for KAITLYN AGUIAR HEMOGLOBIN [id number] 18:35:00 Test Item Value Reference Range Interpretation Comments HEMOGLOBIN A1C (SAUNDRA) (test code = 5.8 % 4.3-6.1 368) POCT-GLUCOSE [id number] 18:18:00 Test Item Value Reference Range Interpretation Comments POC-GLUCOSE METER 153 mg/dL 70-110 H : TESTED A T [facility] 6720 (BEAKER) (test code = [place], 1538) 36076: Corrosion Engineer/Techni thu ID = [id number] for CHANELL AMEZQUITA BLOOD GAS, [id number] 16:43:00 Test Item Value Reference Range Interpretation Comments PH ARTERIAL (BEAKER) (test code = 7.39 7.35-7.45 383) PCO2 ARTERIAL (BEAKER) (test code 36 mmHg 35-45 = 384) PO2 ARTERIAL (BEAKER) (test code 179 mmHg 80-90 H = 385) O2 SATURATION ARTERIAL (BEAKER) 99.3 % 96.0-97.0 H (test code = 386) HCO3 ARTERIAL (BEAKER) (test code 22 mmol/L 21-29 = 388) BASE EXCESS ARTERIAL (BEAKER) -3.0 mmol/L -2.0-3.0 L (test code = 387) PATIENT TEMPERATURE (BEAKER) 35.0 C (test code = 1818) FIO2 (BEAKER) (test code = 1819) 40.0 % T4, [id number] 16:26:00 Test Item Value Reference Range Interpretation Comments FREE T4 (BEAKER) (test code = 655) 0.97 ng/dL 0.70-1.48 Corrosion Engineer ID - BSTSH/FREE T4 IF [id number] 15:55:00 Test Item Value Reference Range Interpretation Comments THYROID STIMULATING HORMONE 5.296 uIU/mL 0.350-4.940 H (BEAKER) (test code = 772) Corrosion Engineer ID - BSVITAMIN B12 AND [id number] 15:54:00 Test Item Value Reference Range Interpretation Comments VITAMIN B12 (BEAKER) (test code = 686 pg/mL 213-816 774) FOLATE (BEAKER) (test code = 362) 9.70 ng/mL >=7.00 Corrosion Engineer ID - BSTROPONIN [id number] 15:25:00 Test Item Value Reference Range Interpretation Comments TROPONIN I (BEAKER) (test code = 397) < ng/mL 0.00-0.03 Troponin I (TnI) levels must be interpreted in the context of the presenting symptoms and the clinical findings. Elevated TnI levels indicate myocardial damage, but are not specific for ischemic heart disease. Elevated TnI levels are seen in patients with other cardiac conditions (including myocarditis and congestive heart failure), and slight TnI elevations occur in patients with other conditions, including sepsis, renal failure, acidosis, acute neurological disease, and persistent tachyarrhythmia.Corrosion Engineer ID - BSBASIC METABOLIC PANEL 2020-02-01 15:25:00 Test Item Value Reference Range Interpretation Comments SODIUM (BEAKER) (test 141 meq/L 136-145 code = 381) POTASSIUM (BEAKER) 3.9 meq/L 3.5-5.1 Specimen slightly (test code = 379) hemolyzed CHLORIDE (BEAKER) 111 meq/L 98-107 H (test code = 382) CO2 (BEAKER) (test 22 meq/L 22-29 code = 355) BLOOD UREA NITROGEN 11 mg/dL 7-21 (BEAKER) (test code = 354) CREATININE (BEAKER) 0.80 mg/dL 0.57-1.25 Specimen slightly (test code = 358) hemolyzed GLUCOSE RANDOM 126 mg/dL 70-105 H (BEAKER) (test code = 652) CALCIUM (BEAKER) 7.8 mg/dL 8.4-10.2 L (test code = 697) EGFR (BEAKER) (test INSUFFIC IENT CLINICAL code = 1092) DATA TO CALCULA TE ESTIMATED GFR. Corrosion Engineer ID - BSHEPATIC FUNCTION [id number] 15:19:00 Test Item Value Reference Range Interpretation Comments TOTAL PROTEIN (BEAKER) 7.1 gm/dL 6.0-8.3 Speci men slightly (test code = 770) hemolyzed ALBUMIN (BEAKER) (test 3.8 g/dL 3.5-5.0 Speci men slightly code = 1145) hemolyzed BILIRUBIN TOTAL 0.6 mg/dL 0.2-1.2 Specimen sli ghtly (BEAKER) (test code = hemoly zed 377) BILIRUBIN DIRECT 0.2 mg/dL 0.1-0.5 Specimen sl ightly (BEAKER) (test code = hemoly zed 706) ALKALINE PHOSPHATASE 74 U/L 40-150 (BEAKER) (test code = 346) AST (SGOT) (BEAKER) 26 U/L 5-34 Specimen slightly (test code = 353) hemolyzed ALT (SGPT) (BEAKER) 26 U/L 6-55 Specimen slightly (test code = 347) hemolyzed Corrosion Engineer ID - BSCBC W/PLT COUNT & AUTO [id number] 15:03:00 Test Item Value Reference Range Interpretation Comments WHITE BLOOD CELL COUNT (BEAKER) 8.1 K/ L 3.5-10.5 (test code = 775) RED BLOOD CELL COUNT (BEAKER) 4.19 M/ L 3.93-5.22 (test code = 761) HEMOGLOBIN (BEAKER) (test code = 12.8 GM/DL 11.2-15.7 410) HEMATOCRIT (BEAKER) (test code = 37.8 % 34.1-44.9 411) MEAN CORPUSCULAR VOLUME (BEAKER) 90.2 fL 79.4-94.8 (test code = 753) MEAN CORPUSCULAR HEMOGLOBIN 30.5 pg 25.6-32.2 (BEAKER) (test code = 751) MEAN CORPUSCULAR HEMOGLOBIN CONC 33.9 GM/DL 32.2-35.5 (BEAKER) (test code = 752) RED CELL DISTRIBUTION WIDTH 13.3 % 11.7-14.4 (BEAKER) (test code = 412) PLATELET COUNT (BEAKER) (test 197 K/CU MM 150-450 code = 756) MEAN PLATELET VOLUME (BEAKER) 11.7 fL 9.4-12.3 (test code = 754) NUCLEATED RED BLOOD CELLS 0 /100 WBC 0-0 (BEAKER) (test code = 413) NEUTROPHILS RELATIVE PERCENT 67 % (BEAKER) (test code = 429) LYMPHOCYTES RELATIVE PERCENT 25 % (BEAKER) (test code = 430) MONOCYTES RELATIVE PERCENT 6 % (BEAKER) (test code = 431) EOSINOPHILS RELATIVE PERCENT 1 % (BEAKER) (test code = 432) BASOPHILS RELATIVE PERCENT 1 % (BEAKER) (test code = 437) NEUTROPHILS ABSOLUTE COUNT 5.42 K/ L 1.56-6.13 (BEAKER) (test code = 670) LYMPHOCYTES ABSOLUTE COUNT 1.99 K/ L 1.18-3.74 (BEAKER) (test code = 414) MONOCYTES ABSOLUTE COUNT (BEAKER) 0.52 K/ L 0.24-0.36 H (test code = 415) EOSINOPHILS ABSOLUTE COUNT 0.10 K/ L 0.04-0.36 (BEAKER) (test code = 416) BASOPHILS ABSOLUTE COUNT (BEAKER) 0.04 K/ L 0.01-0.08 (test code = 417) IMMATURE GRANULOCYTES-RELATIVE 1 % 0-1 PERCENT (BEAKER) (test code = 2801) RAD, CHEST, 1 VIEW, NON [id number] 14:45:00Reason for exam:- >intubatedShould this be performed at the bedside?->YesFINAL REPORT RAD, CHEST, 1 VIEW, NON DEPT INDICATION: intubated COMPARISON: Prior day's exam FINDINGS: Portable frontal view of the chest. IMPRESSION: Support Lines: ET tube tip is 3 cm superior to the rodolfo. Lungs and pleura: Bilateral interstitial thickening No pneumothorax.Heart and mediastinum: Normal contours. Additional findings: None. Signed: Mary Yang MDReport Verified Date/Time: 02/01/2020 14:45:36 Reading Location: [facility] Radiology Reading Room POCT-GLUCOSE [id number] 13:18:00 Test Item Value Reference Range Interpretation Comments POC-GLUCOSE METER 119 mg/dL 70-110 H : TESTED A T [facility] 6720 (BEAKER) (test code = CHRISTIANO Francois [facility], 1538) [address]: Corrosion Engineer/Techni thu ID = [id number] for Ig Aye baez
--- NOTE | 2021-06-12 11:08 | RAD REPORT ---
EXAM DESCRIPTION: CT - Head Brain Wo Cont - 06/12/2021 10:53 am CLINICAL HISTORY: HEADACHE Headache, drowsiness COMPARISON: Head angio dated 02/01/2020; Ct Stroke Brain Wo Cont dated 02/01/2020 TECHNIQUE: All CT scans are performed using dose optimization technique as appropriate and may inclu de automated exposure control or mA/KV adjustment according to patient size. FINDINGS: No intracranial hemorrhage, hydrocephalus or extra-axial fluid collection.Old infarct is p resent the left basal ganglia.No areas of brain edema or evidence of midline shift. The paranasal sinuses and mastoids are clear. The calvarium is intact. IMPRESSION: No acute intracranial abnormality.
--- NOTE | 2021-06-12 11:30 | EDPHYS ---
Physician Documentation [facility] Name: Abigail Schaeffer Age: 66 yrs Sex: Female : 1955 Arrival Date: 06/12/2021 Time: 09:40 Bed 12 Private MD: Jaguar Burrows V ED Physician Bryon Muller HPI: 06/12 11:29 This 66 yrs old Female presents to ER via Wheelchair with complaints of jr8 Redness of Eye. 11:29 Onset: The symptoms/episode began/occurred acutely, this morning. Severity of symptoms: jr8 At their worst the symptoms were mild in the emergency department the symptoms are unchanged. The patient has not experienced similar symptoms in the past. The patient has not recently seen a physician. This is a 66-year-old female patient that presented to the emergency room after finding out that she had blood around her eye. Family members came over this morning had noticed it. Patient currently without any pain to the eye but was complaining of mild headache. Patient denies trauma to the eye as well. Is on antiplatelet therapy daily for previous strokes.. 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 - Social history:: Smoking status: Patient denies any tobacco usage or history of. ROS: 11:29 Cardiovascular: Negative for chest pain, palpitations, and edema, Respiratory: Negative jr8 for shortness of breath, cough, wheezing, and pleuritic chest pain. 11:29 Eyes: Positive for Blood around eye. 11:29 Neuro: Positive for headache, Negative for altered mental status, dizziness, gait disturbance. 11:29 All other systems are negative. Exam: 11:29 Visual Acuity: Visual acuity is within normal limits. jr8 11:29 Constitutional: This is a well developed, well nourished patient who is awake, alert, and in no acute distress. Cardiovascular: Regular rate and rhythm with a normal S1 and S2. No gallops, murmurs, or rubs. Normal PMI, no JVD. No pulse deficits. Respiratory: Lungs have equal breath sounds bilaterally, clear to auscultation and percussion. No rales, rhonchi or wheezes noted. No increased work of breathing, no retractions or nasal flaring. Abdomen/GI: Soft, non-tender, with normal bowel sounds. No distension or tympany. No guarding or rebound. No evidence of tenderness throughout. Skin: Warm, dry with normal turgor. Normal color with no rashes, no lesions, and no evidence of cellulitis. MS/ Extremity: Pulses equal, no cyanosis. Neurovascular intact. Full, normal range of motion. Neuro: Awake and alert, GCS 15, oriented to person, place, time, and situation. Cranial nerves II-XII grossly intact. Motor strength 5/5 on left side. 1/5 right side. Sensory grossly intact. Cerebellar exam normal. 11:29 Eyes: Periorbital structures: appear normal, Pupils: equal, round, and reactive to light and accomodation, Extraocular movements: intact throughout, Conjunctiva: subconjunctival hemorrhage(s), seen in the right eye, Corneas: are normal, Sclera: no appreciated abnormality, Anterior chamber: normal, Lids and lashes: appear normal. Vital Signs: 09:46 BP 152 / 70; Pulse 80; Resp 16 S; Temp 98.1(TE); Pulse Ox 98% on R/A; Weight 57.61 kg aa5 (R); Height 5 ft. 4 in. (162.56 cm) (R); 09:46 Body Mass Index 21.80 (57.61 kg, 162.56 cm) aa5 MDM: 09:48 Patient medically screened. [facility] 11:27 Data reviewed: vital signs, nurses notes, radiologic studies, CT scan, and as a result, jr8 I will discharge patient. Data interpreted: Pulse oximetry: on room air is 98 %. Interpretation: normal. Counseling: I had a detailed discussion with the patient and/or guardian regarding: the historical points, exam findings, and any diagnostic results supporting the discharge/admit diagnosis, radiology results, the need for outpatient follow up, a family practitioner, to return to the emergency department if symptoms worsen or persist or if there are any questions or concerns that arise at home. ED course: Patient hemodynamically stable. No acute findings on the CT of the head. Patient feeling better at this time. Discussed with patient that the subconjunctival hemorrhage could have been from her antiplatelet therapy. That it will subside after time but needs to follow-up with ophthalmology. If she were to worsening point time to come back for further evaluation. Patient good with this.. 06/12 10:41 Order name: CT Head Brain wo Cont; Complete Time: 11:27 jr8 Administered Medications: No medications were administered Disposition: 06/13 06:39 Co-signature as Attending Physician, Bryon Muller MD I agree with the assessment and rosa plan of care. Disposition Summary: 06/12/21 11:29 Discharge Ordered Location: Home jr8 Problem: new jr8 Symptoms: have improved jr8 Condition: Stable jr8 Diagnosis - Subconjunctival Hemorrhage jr8 Followup: jr8 - With: Guero Lopez MD - When: 2 - 3 days - Reason: Recheck today's complaints, Continuance of care, Re-evaluation by your physician Discharge Instructions: - Discharge Summary Sheet jr8 - Subconjunctival Hemorrhage jr8 Forms: - Medication Reconciliation Form jr8 - Thank You Letter jr8 - Antibiotic Education jr8 - Prescription Opioid Use jr8 Signatures: Dispatcher [employer] Bryon Spaulding MD MD cha Calderon, Audri, RN RN aa5 Bart Mcmillan PA PA jr8
--- NOTE | 2021-06-12 11:30 | ER ---
Nurse's Notes [facility] Name: Abigail Schaeffer Age: 66 yrs Sex: Female : 1955 Arrival Date: 06/12/2021 Time: 09:40 Bed 12 Private MD: Jaguar Burrows V Diagnosis: Subconjunctival Hemorrhage Presentation: 06/12 09:46 Chief complaint: Patient states: "I woke up like this". Pt c/o redness to right eye and aa5 states "it feels like there is something in my eye". Coronavirus screen: At this time, the client does not indicate any symptoms associated with coronavirus-19. Ebola Screen: Patient negative for fever greater than or equal to 101.5 degrees Fahrenheit, and additional compatible Ebola Virus Disease symptoms. Initial Sepsis Screen: Does the patient meet any 2 criteria? No. Patient's initial sepsis screen is negative. Does the patient have a suspected source of infection? No. Patient's initial sepsis screen is negative. Risk Assessment: Do you want to hurt yourself or someone else? Patient reports no desire to harm self or others. Onset of symptoms was May 2021. 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 - Social history:: Smoking status: Patient denies any tobacco usage or history of. Vital Signs: 09:46 BP 152 / 70; Pulse 80; Resp 16 S; Temp 98.1(TE); Pulse Ox 98% on R/A; Weight 57.61 kg aa5 (R); Height 5 ft. 4 in. (162.56 cm) (R); 09:46 Body Mass Index 21.80 (57.61 kg, 162.56 cm) aa5 ED Course: 09:40 Patient arrived in ED. as 09:41 Jaguar Burrows MD is Private Physician. as 09:47 Triage completed. aa5 09:47 Arm band placed on. aa5 09:48 Bart Mcmillan PA is PHCP. jr8 09:48 Bryon Muller MD is Attending Physician. jr8 10:52 CT Head Brain wo Cont In Process Unspecified. EDMS 11:28 Guero Lopez MD is Referral Physician. jr8 Administered Medications: No medications were administered Outcome: : Discharge ordered by . jr8 11:53 Patient left the ED. ap3 Signatures: Dispatcher [employer] EDNH Gail Haddad Audri, RN RN aa5 Bart Mcmillan PA PA jr8 Kenna Koo RN RN ap3
[2021-06-12 12:24] VITALS: BP 152/70; TEMP 98.1; O2SAT 98
== END 2021-06-12 11:53 | disposition home or self-care (01) ==
LOC: ER 09:39
DX: H11.31 Conjunctival hemorrhage, right eye (principal); I10 Essential (primary) hypertension; Z79.01 Long term (current) use of anticoagulants; Z88.5 Allergy status to narcotic agent; Z86.73 Personal history of transient ischemic attack (TIA), and cerebral infarction without residual deficits
CPT/HCPCS: 70450; 99282

== ENCOUNTER 2021-06-15 10:09 | Inpatient (IN) | payer OTHER ==
[2021-06-15 10:43] LABS: Absolute Lymphocytes (CBC) 2.1 K/uL (0.7-4.9); Basophils % 0.6 % (0-1.3); Hematocrit 30.7 % (36.0-45.0); Lymphocytes % 28.8 % (15.3-44.8); MPV 9.8 fL (7.6-11.3); RBC Red Blood Cell Count 3.71 M/uL (3.86-4.86)
[2021-06-15 11:10] LABS: Albumin 3.2 g/dL (3.4-5.0); Bilirubin Direct 0.1 mg/dL (0-0.2); Bilirubin Total 0.4 mg/dL (0.2-1.0); Potassium 3.8 mmol/L (3.5-5.1); Protein, Total 7.2 g/dL (6.4-8.2)
--- NOTE | 2021-06-15 11:36 | RAD REPORT ---
EXAM DESCRIPTION: CT - Head Brain Wo Cont - 06/15/2021 11:23 am CLINICAL HISTORY: Vomiting, headache COMPARISON: Head Brain Wo Cont dated 06/12/2021 TECHNIQUE: Axial 5 mm thick images of the head were obtained without IV contrast. All CT scans are performed using dose optimization technique as appropriate and may include automated exposure control or mA/KV adjustment according to patient size. FINDINGS: No intracranial hemorrhage, mass, edema or shift of mid-line structures. No acute cortical based infarction. No cortical edema or sulcal effacement. Volume loss changes in the right head of t he caudate and basal ganglia region match comparison. No abnormal extra-axial fluid collections. Vent ricles are normal. Mastoid air cells and visualized portions of the paranasal sinuses are clear. No acute bony findings. IMPRESSION: Negative non-contrast CT head examination for acute finding.
--- NOTE | 2021-06-15 11:38 | RAD REPORT ---
EXAM DESCRIPTION: CT - Abdomen Pelvis W Contrast - 06/15/2021 11:22 am CLINICAL HISTORY: Vomiting blood and black stools;Abd pain COMPARISON: No comparisons TECHNIQUE: Biphasic, helical CT imaging of the abdomen and pelvis was performed following 100 ml non -ionic IV contrast. No oral contrast administered. All CT scans are performed using dose optimization technique as appropriate and may include automated exposure control or mA/KV adjustment according to patient size. FINDINGS: No suspicious findings in the lung bases. The liver, spleen, and pancreas show no suspicious findings. No acute gallbladder or biliary tree fin ding. Patient does have a large calcified 2.5 centimeter gallstone. Additional gallstones can be occu lt. Symmetric renal function is seen with no hydronephrosis or suspicious renal mass. No pyelonephritis o r acute parenchymal process. No bladder abnormalities. No adrenal abnormalities. Uterus and ovaries s how no suspicious findings. No dilated bowel loops or bowel wall thickening. Moderately large stool volume is present filling but not dilating the entirety of the colon. Sigmoid colon is redundant. No free air, free fluid or infla mmatory stranding. No mass or bulky lymphadenopathy. Very small 10 mm umbilical hernia present of no significance. No suspicious bony findings. IMPRESSION: Contrast enhanced CT abdomen and pelvis showing no acute or emergent finding. A 2.5 centimeter calcified gallstone is present but no evidence for an acute gallbladder, biliary amena e or pancreatic process.
[2021-06-15] MEDS ORDERED: FAMOTIDINE 20 MG/2 ML VIAL IV ONE (12:13)
--- NOTE | 2021-06-15 12:50 | EDPHYS ---
Physician Documentation [facility] Name: Abigail Schaeffer Age: 66 yrs Sex: Female : 1955 Arrival Date: 06/15/2021 Time: 10:10 Bed 7 Private MD: Jaguar Burrows V ED Physician Zoltan Hung HPI: 06/15 12:50 This 66 yrs old Female presents to ER via Wheelchair with complaints of kdr Vomiting - blood. 12:50 The patient presents to the emergency department with nausea, that is mild, vomiting, kdr that is intermittent, 1 times since the onset of symptoms. Onset: The symptoms/episode began/occurred just prior to arrival, this morning. Possible causes: unknown, Patient is randomly ill, she is taking Plavix and aspirin. The symptoms are aggravated by nothing. The symptoms are alleviated by nothing. Associated signs and symptoms: Pertinent positives: vomiting, Hemoptysis, melena. Severity of symptoms: At their worst the symptoms were mild in the emergency department the symptoms are unchanged. The patient has not experienced similar symptoms in the past. The patient has not recently seen a physician. 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 - Social history:: Smoking status: Patient denies any tobacco usage or history of. ROS: 12:50 Constitutional: Positive for malaise. kdr 12:50 Eyes: Positive for 12:52 Cardiovascular: Negative for chest pain, palpitations, and edema, Respiratory: Negative kdr for shortness of breath, cough, wheezing, and pleuritic chest pain, Back: Negative for injury and pain, : Negative for injury, bleeding, discharge, and swelling, MS/Extremity: Negative for injury and deformity, Skin: Negative for injury, rash, and discoloration, Neuro: Negative for headache, weakness, numbness, tingling, and seizure activity. Psych: Negative for depression, anxiety, suicide ideation, homicidal ideation, and hallucinations, Allergy/Immunology: Negative for hives, rash, and allergies, Endocrine: Negative for neck swelling, polydipsia, polyuria, polyphagia, and marked weight changes, Hematologic/Lymphatic: Negative for swollen nodes, abnormal bleeding, and unusual bruising. 12:52 Abdomen/GI: Positive for abdominal pain, nausea, vomiting, and diarrhea, abdominal cramps, abdominal distension, Hematemesis, melena, Negative for Exam: 12:52 Constitutional: This is a well developed, well nourished patient who is awake, alert, kdr and in no acute distress. Head/Face: Normocephalic, atraumatic. Eyes: Pupils equal round and reactive to light, extra-ocular motions intact. Lids and lashes normal. Conjunctiva and sclera are non-icteric and not injected. Cornea within normal limits. Periorbital areas with no swelling, redness, or edema. Neck: Trachea midline, no thyromegaly or masses palpated, and no cervical lymphadenopathy. Supple, full range of motion without nuchal rigidity, or vertebral point tenderness. No Meningismus. Chest/axilla: Normal chest wall appearance and motion. Nontender with no deformity. No lesions are appreciated. Cardiovascular: Regular rate and rhythm with a normal S1 and S2. No gallops, murmurs, or rubs. Normal PMI, no JVD. No pulse deficits. Respiratory: Lungs have equal breath sounds bilaterally, clear to auscultation and percussion. No rales, rhonchi or wheezes noted. No increased work of breathing, no retractions or nasal flaring. Back: No spinal tenderness. No costovertebral tenderness. Full range of motion. Skin: Warm, dry with normal turgor. Normal color with no rashes, no lesions, and no evidence of cellulitis. MS/ Extremity: Pulses equal, no cyanosis. Neurovascular intact. Full, normal range of motion. Neuro: Awake and alert, GCS 15, oriented to person, place, time, and situation. Cranial nerves II-XII grossly intact. Motor strength 5/5 in all extremities. Sensory grossly intact. Cerebellar exam normal. Normal gait. Psych: Awake, alert, with orientation to person, place and time. Behavior, mood, and affect are within normal limits. 12:52 Abdomen/GI: Inspection: abdomen appears normal, Bowel sounds: diminished, in all quadrants, Palpation: soft, mild abdominal tenderness, in the suprapubic area, Rectal exam: rectal tone normal, Stool: guaiac positive, black, green. Vital Signs: 10:13 BP 135 / 72; Pulse 87; Resp 18 S; Temp 98.4(O); Pulse Ox 100% on R/A; Weight 56.25 kg; aa5 Height 5 ft. 4 in. (162.56 cm) (R); 12:00 BP 128 / 70; Pulse 85; Resp 15; Pulse Ox 98% ; hb 13:54 BP 125 / 62; Pulse 84; Resp 14; Pulse Ox 100% ; hb 16:15 BP 95 / 59; Pulse 81; Pulse Ox 99% ; hb 17:00 BP 116 / 95; Pulse 82; Pulse Ox 100% ; hb 18:30 BP 104 / 59; Pulse 72; Pulse Ox 100% ; hb 10:13 Body Mass Index 21.28 (56.25 kg, 162.56 cm) aa5 MDM: 12:50 Patient medically screened. kdr 12:52 Data reviewed: vital signs, nurses notes, lab test result(s), radiologic studies. kdr Counseling: I had a detailed discussion with the patient and/or guardian regarding: the historical points, exam findings, and any diagnostic results supporting the discharge/admit diagnosis, lab results, radiology results, the need to transfer to another facility. 06/15 10:21 Order name: Basic Metabolic Panel; Complete Time: 11:28 [facility] 06/15 10:21 Order name: CBC with Diff; Complete Time: 11:28 [facility] 06/15 10:21 Order name: Hepatic Function; Complete Time: 11:28 [facility] 06/15 10:21 Order name: Lipase; Complete Time: 11:28 [facility] 06/15 10:21 Order name: Type And Screen [facility] 06/15 11:18 Order name: CREATININE WHOLE BLOOD; Complete Time: 11:28 [facility] 06/15 12:40 Order name: Hemoglobin; Complete Time: 14:13 [facility] 06/15 12:40 Order name: Hematocrit; Complete Time: 14:13 [facility] 06/15 12:48 Order name: COVID-19 : Document "Date of Symptom Onset" if Symptomatic. [facility] 06/15 13:03 Order name: ABO/RH no charge; Complete Time: 14:13 [facility] 06/15 14:31 Order name: SARS-COV-2 RT PCR; Complete Time: 15:28 [facility] 06/15 19:05 Order name: Basic Metabolic Panel [facility] 06/15 19:05 Order name: Basic Metabolic Panel [facility] 06/15 10:21 Order name: IV Saline Lock; Complete Time: 10:36 kdr 06/15 10:21 Order name: Labs collected and sent; Complete Time: 10:36 kdr 06/15 10:33 Order name: CT Abd/Pelvis - IV Contrast Only; Complete Time: 12:27 kdr 06/15 10:33 Order name: CT Head Brain wo Cont; Complete Time: 12:27 kdr 06/15 19:05 Order name: Lipase [facility] 06/15 19:05 Order name: Lipase [facility] 06/15 19:05 Order name: Jasvir, Dr Consult [facility] 06/15 19:05 Order name: NPO [facility] 06/15 19:05 Order name: Liver (Hepatic) Function [facility] 06/15 19:05 Order name: Liver (Hepatic) Function [facility] 06/15 19:05 Order name: CBC with Automated Diff [facility] 06/15 19:05 Order name: CBC with Automated Diff [facility] 06/15 12:29 Order name: PO challenge; Complete Time: 12:51 kdr Administered Medications: 10:00 Drug: Pepcid (famotidine) 20 mg Route: IVP; Site: right forearm; hb 15:24 Drug: ProTONIX (pantoprazole) 40 mg Route: IVP; Site: right forearm; hb 18:44 Follow up: Response: No adverse reaction hb 15:24 Drug: ProTONIX (pantoprazole) 8 mg/hr Route: IV; Rate: 25 ml/hr; Site: right forearm; hb 22:07 Follow up: IV Status: Infusion continued upon admission ea 18:02 Drug: Zofran (Ondansetron) 4 mg Route: IVP; Site: right forearm; hb 18:44 Follow up: Response: No adverse reaction hb Point of Care Testing: Guaiac: 10:37 Stool Guaiac: Positive; Stool Hemoccult Control: Pass; hb Disposition Summary: 06/15/21 17:25 Hospitalization Ordered Hospitalization Status: Inpatient Admission kdr Provider: Jaguar Burrows Location: Telemetry/[facility] (Inpatient) kdr Condition: Fair(06/15/21 17:25) kdr Problem: new(06/15/21 17:25) kdr Symptoms: are unchanged(06/15/21 17:25) kdr Bed/Room Type: Standard kdr Room Assignment: 210(06/15/21 21:47) cg Diagnosis - Upper GI bleed, weakness, kdr - Vomiting kdr Forms: - Medication Reconciliation Form kdr - SBAR form kdr Signatures: Dispatcher [employer] EDMS Zoltan Hung MD MD kdr Kristal Sue RN RN aa5 Graciela Deleon RN RN cg Melodie Hendrix RN RN Araceli Jay RN, ea Corrections: (The following items were deleted from the chart) 13:34 12:49 CORONAVIRUS ordered. [facility]NY EDMS 14:18 12:50 [facility] kdr kdr 17:23 12:50 [facility] kdr kdr 17:23 12:50 Higher level of care kdr kdr 17:23 12:50 Fair kdr kdr 17:23 12:50 new kdr kdr 17:23 12:50 are unchanged kdr kdr 17:23 12:50 Encounter for screening for upper gastrointestinal disorder kdr kdr 17:23 12:50 Upper GI bleed kdr kdr 17:23 12:50 Anemia, unspecified kdr kdr 17:23 14:18 [facility] - Dr. Koo kdr kdr 21:47 17:25 kdr cg
--- NOTE | 2021-06-15 12:50 | ER ---
Nurse's Notes 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 Pt also states "my aa5 stool is black". Pt reports she takes Plavix and ASA. 10:13 Coronavirus screen: vomiting. Ebola Screen: Patient negative for fever greater than or aa5 equal to 101.5 degrees Fahrenheit, and additional compatible Ebola Virus Disease symptoms. Initial Sepsis Screen: Does the patient meet any 2 criteria? No. Patient's initial sepsis screen is negative. Does the patient have a suspected source of infection? No. Patient's initial sepsis screen is negative. Risk Assessment: Do you want to hurt yourself or someone else? Patient reports no desire to harm self or others. Onset of symptoms was June 15, 2021. 10:13 Method Of Arrival: Wheelchair aa5 10:13 Acuity: AUGUSTO 3 aa5 Historical: - Allergies: 10:22 Codeine; aa5 - PMHx: 10:22 CVA; Deficit from CVA- slow soft speech; Diabetes - NIDDM; Hyperlipidemia; aa5 Hypertension; Right sided weakness; - PSHx: 10:22 Brain Stent; aa5 - Immunization history:: Client reports receiving the 2nd dose of the Covid vaccine. - Social history:: Smoking status: Patient denies any tobacco usage or history of. Screenin:37 Abuse screen: Denies threats or abuse. Denies injuries from another. Nutritional hb screening: No deficits noted. Tuberculosis screening: No symptoms or risk factors identified. Fall Risk None identified. Assessment: 10:36 General: Appears in no apparent distress. Behavior is calm, cooperative. Pain: Denies hb pain. Neuro: Level of Consciousness is awake, alert, obeys commands, Oriented to person, place, time, situation. Cardiovascular: Patient's skin is warm and dry. Rhythm is regular. Respiratory: Respiratory effort is even, unlabored, Respiratory pattern is regular, symmetrical. GI: Reports vomiting blood. : No signs and/or symptoms were reported regarding the genitourinary system. EENT: No signs and/or symptoms were reported regarding the EENT system. Derm: Skin is pink, warm \\T\\ dry. Musculoskeletal: No signs and/or symptoms reported regarding the musculoskeletal system. 12:09 Reassessment: Patient appears in no apparent distress at this time. Patient and/or hb family updated on plan of care and expected duration. Pain level reassessed. Patient is alert, oriented x 3, equal unlabored respirations, skin warm/dry/pink. 13:54 Reassessment: Patient appears in no apparent distress at this time. Patient and/or hb family updated on plan of care and expected duration. Pain level reassessed. Patient is alert, oriented x 3, equal unlabored respirations, skin warm/dry/pink. 15:02 Reassessment: No changes from previously documented assessment. hb 16:47 Reassessment: No changes from previously documented assessment. hb 18:24 Reassessment: No changes from previously documented assessment. hb Vital Signs: 10:13 BP 135 / 72; Pulse 87; Resp 18 S; Temp 98.4(O); Pulse Ox 100% on R/A; Weight 56.25 kg; aa5 Height 5 ft. 4 in. (162.56 cm) (R); 12:00 BP 128 / 70; Pulse 85; Resp 15; Pulse Ox 98% ; hb 13:54 BP 125 / 62; Pulse 84; Resp 14; Pulse Ox 100% ; hb 16:15 BP 95 / 59; Pulse 81; Pulse Ox 99% ; hb 17:00 BP 116 / 95; Pulse 82; Pulse Ox 100% ; hb 18:30 BP 104 / 59; Pulse 72; Pulse Ox 100% ; hb 10:13 Body Mass Index 21.28 (56.25 kg, 162.56 cm) aa5 ED Course: 10:10 Patient arrived in ED. as 10:10 Jaguar Burrows MD is Private Physician. as 10:13 Arm band placed on. aa5 10:21 Zoltan Hung MD is Attending Physician. kdr 10:22 Triage completed. aa5 10:35 Inserted saline lock: 20 gauge in right forearm, using aseptic technique. Blood hb collected. 10:36 Melodie Hendrix, CHERYL is Primary Nurse. hb 10:37 Patient has correct armband on for positive identification. hb 11:22 CT Abd/Pelvis - IV Contrast Only In Process Unspecified. EDMS 11:22 CT Head Brain wo Cont In Process Unspecified. EDMS 12:51 Hematocrit Sent. dh3 12:51 Hemoglobin Sent. dh3 12:55 initiated a transfer with Franco Reyna Rn from the [facility]. eb 14:05 per Shell she is still waiting for GI to return the call. eb 14:[address] Blair the GI information technology security manager from [facility] with Dr. Hung for patient eb transfer consultation. 17:23 Jaguar Burrows MD is Hospitalizing Provider. kdr Administered Medications: 10:00 Drug: Pepcid (famotidine) 20 mg Route: IVP; Site: right forearm; hb 15:24 Drug: ProTONIX (pantoprazole) 40 mg Route: IVP; Site: right forearm; hb 18:44 Follow up: Response: No adverse reaction hb 15:24 Drug: ProTONIX (pantoprazole) 8 mg/hr Route: IV; Rate: 25 ml/hr; Site: right forearm; hb 22:07 Follow up: IV Status: Infusion continued upon admission ea 18:02 Drug: Zofran (Ondansetron) 4 mg Route: IVP; Site: right forearm; hb 18:44 Follow up: Response: No adverse reaction hb Point of Care Testing: Guaiac: 10:37 Stool Guaiac: Positive; Stool Hemoccult Control: Pass; hb Outcome: 12:50 ER care complete, transfer ordered by MD. kdr 17:25 Decision to Hospitalize by Provider. kdr 23:45 Patient left the ED. ea Signatures: Dispatcher [employer] EDMS Zoltan Hung MD MD kdr Martinez, Amelia as Calderon, Audri, RN RN aa5 Melodie Hendrix RN RN Yanira Henley 3 Araceli Jay RN RN Lucy Greco Corrections: (The following items were deleted from the chart) 10:27 10:13 BP 135 / 72; Pulse 87bpm; Resp 18bpm; Spontaneous; Pulse Ox 100% RA; Temp 98.4F aa5 Oral; aa5 14:26 14:05 per Shell she is still waiting for GI to return the call. eb eb
[2021-06-15 13:00] LABS: Hematocrit 30.1 % (36.0-45.0)
[2021-06-15] MEDS ORDERED: PANTOPRAZOLE 40 MG INJ ONE (15:20)
[2021-06-15] MEDS: PANTOPRAZOLE INJ 80 MG in NA CHLORIDE 0.9% 250 ML IV SCH ×2 (16:00→20:00)
[2021-06-15] MEDS ORDERED: ONDANSETRON 4 MG/2 ML VIAL ONE (18:11)
[2021-06-15] MEDS ORDERED: ACETAMINOPHEN 500 MG TAB PO PRN (19:01)
[2021-06-15] MEDS ORDERED: ONDANSETRON 4 MG/2 ML VIAL IV PRN (19:01)
[2021-06-15] MEDS: D5 0.45 NS 1,000 ML IV SCH (20:00)
[2021-06-15 20:26] VITALS: BMI 21.9
[2021-06-15] MEDS ORDERED: D5 0.45 NS 1,000 ML IV ONE (21:10)
[2021-06-16] MEDS: PANTOPRAZOLE INJ 80 MG in NA CHLORIDE 0.9% 250 ML IV SCH ×3 (00:30→16:00)
[2021-06-16] MEDS ORDERED: PANTOPRAZOLE 40 MG INJ ONE ×3 (00:43→10:08)
[2021-06-16] MEDS: D5 0.45 NS 1,000 ML IV SCH (04:28)
[2021-06-16 05:21] LABS: Absolute Lymphocytes (CBC) 2.3 K/uL (0.7-4.9); Basophils % 0.5 % (0-1.3); Hematocrit 23.7 % (36.0-45.0); Lymphocytes % 28.8 % (15.3-44.8); MPV 9.7 fL (7.6-11.3)
[2021-06-16 06:01] LABS: Albumin 2.7 g/dL (3.4-5.0); Bilirubin Direct 0.1 mg/dL (0-0.2); Bilirubin Total 0.3 mg/dL (0.2-1.0); Potassium 3.4 mmol/L (3.5-5.1)
--- NOTE | 2021-06-16 09:23 | P.HP ---
Certification for Inpatient Patient admitted to: Inpatient With expected LOS: >2 Midnights Practitioner: I am a practitioner with admitting privileges, knowledge of patient current condition, hospital course, and medical plan of care. Services: Services provided to patient in accordance with Admission requirements found in Title 42 Section 412.3 of the Code of Federal Regulations Patient History Date of Service: 06/16/21 Reason for admission: GI BLEED. History of Present Illness: MAHAD IS ON ANTIPLATELET THREAPY FOR A STROKE WITH R HEMIPLEGIA AND L MCA BLOCKAGE. SHE ALSO HAS COIL FOR BRAIN ANEURYSM [place] [address] MORALES ON L SIDE. THIS ALL HAPPENED AT THE SAME TIME. SHE COMES IN WITH UPPER GI BLEED AND MELENA FOR A DAY. DR. CALI HAS BEEN CONSULTED. PATIENT IS STABLE AND NOT BLEEDING AT PRESENT. 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 ANE. - Family History Mother -: Diabetes Father -: Heart disease - Social History Smoking Status: Never smoker Alcohol use: No CD- Drugs: No Caffeine use: Yes Review of Systems 10-point ROS is otherwise unremarkable General: Weakness (OLD R HEMIPLEGIA.) Physical Examination - Vital Signs Temperature: 97.7 F Blood Pressure: 112/57 Pulse: 83 Respirations: 16 Pulse Ox (%): 96 - Physical Exam General: Oriented x3, Mild distress HEENT: Atraumatic, PERRLA, Mucous membr. moist/pink, EOMI, Sclerae nonicteric Neck: Supple, 2+ carotid pulse no bruit, No LAD, Without JVD or thyroid abnormality Respiratory: Clear to auscultation bilaterally, Normal air movement Cardiovascular: Regular rate/rhythm, Normal S1 S2 Gastrointestinal: Normal bowel sounds, No tenderness Musculoskeletal: No tenderness Integumentary: No rashes Neurological: Abnormal strength (R HEMIPLEGIA. OLD. ) Lymphatics: No axilla or inguinal lymphadenopathy - Studies Laboratory Data (last 24 hrs) 06/15/21 12:44: Hgb 9.9 L, Hct 30.1 L 06/15/21 10:35: WBC 7.20, Hgb 9.9 L, Hct 30.7 L, Plt Count 205 06/15/21 10:35: Sodium 141, Potassium 3.8, BUN 25 H, Creatinine 0.87, Glucose 241 H, Total Bilirubin 0.4, AST 16, ALT 28, Alkaline Phosphatase 106, Lipase 133 Assessment and Plan - Problems (Diagnosis) (1) Upper GI bleed Current Visit: Yes Status: Acute Plan: IV PROTOIX CONSULT DR. CALI EGD SHE DOES NOT TAKE NSAIDS. PROGNOSIS GUARDED SHE HAS TO STOP HER STROKE THERAPY FOR NOW UNTIL CLEARED BY GI. 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 (6) Anemia due to GI blood loss Current Visit: Yes Status: Acute Plan: IV PROTONIX. PACKED RBCS TWO. - Advance Directives Does patient have a Living Will: No Does patient have a Durable POA for Healthcare: No
[2021-06-16] MEDS: NACHLORIDE 0.45% 1,000 ML IV SCH (09:56)
[2021-06-16 10:20] LABS: Protime INR 1.2
[2021-06-16] MEDS ORDERED: NA CHLORIDE 0.9% 250 ML ONE (11:20)
[2021-06-16 16:17] LABS: Hematocrit 26.9 % (36.0-45.0)
[2021-06-17] MEDS: PANTOPRAZOLE INJ 80 MG in NA CHLORIDE 0.9% 250 ML IV SCH ×3 (02:00→21:22)
[2021-06-17] MEDS: NACHLORIDE 0.45% 1,000 ML IV SCH (05:14)
[2021-06-17 06:22] LABS: Absolute Lymphocytes (CBC) 1.5 K/uL (0.7-4.9); Basophils % 0.5 % (0-1.3); Hematocrit 25.5 % (36.0-45.0); Lymphocytes % 21.8 % (15.3-44.8); MPV 9.6 fL (7.6-11.3)
[2021-06-17 06:36] LABS: Potassium 3.4 mmol/L (3.5-5.1)
[2021-06-17] MEDS ORDERED: HYDROCORTISONE 1 % CREAM 30GM TOP PRN (10:12)
--- NOTE | 2021-06-17 10:34 | P.PN ---
Subjective Date of Service: 06/17/21 Chief Complaint: GI BLEED. Subjective: Improving SHE IS STABLE. HAS NO GI BLEED. NO BLACK STOOL. WAITING FOR EGD. TOLD ME THAT LIPITOR 80 MG IS A LARGE TABLET AND SHE CAN'T SWALLOW SO SHE BREAKS IN HALF AND STILL STRUGGLES TO SWALLOW AND HAS TO FORCE. THIS MAY HAVE DONE THE DAMAGE. Physical Examination - Vital Signs Temperature: 97.1 F Blood Pressure: 112/53 Pulse: 80 Respirations: 18 Pulse Ox (%): 96 - Physical Exam General: Oriented x3, Mild distress HEENT: Atraumatic, PERRLA, EOMI Neck: Supple, JVD not distended Respiratory: Clear to auscultation bilaterally, Normal air movement Cardiovascular: Regular rate/rhythm, Normal S1 S2 Gastrointestinal: Normal bowel sounds, No tenderness Musculoskeletal: No tenderness Integumentary: No rashes Neurological: Abnormal speech, Abnormal strength (R HEMIPLEGIA) Lymphatics: No axilla or inguinal lymphadenopathy - Studies Medications List Reviewed: Yes Assessment And Plan - Current Problems (Diagnosis) (1) Upper GI bleed Current Visit: Yes Status: Acute Plan: IV PROTOIX CONSULT DR. CALI EGD SHE DOES NOT TAKE NSAIDS. PROGNOSIS GUARDED SHE HAS TO STOP HER STROKE THERAPY FOR NOW UNTIL CLEARED BY GI. HG STABLE CHECK DAILY . AND PATIENT KNOW THAT WITHOUT ANTIPLATELET THERAPY SHE CARRIES RISK FOR STROKE. 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 (6) Anemia due to GI blood loss Current Visit: Yes Status: Acute Plan: IV PROTONIX. PACKED RBCS TWO.
[2021-06-17] MEDS ORDERED: Ringers Lactate 1,000 ML IV ONE (10:43)
[2021-06-17] MEDS ORDERED: EPINEPHRINE/PF 1 MG/ML AMP ONE (11:47)
[2021-06-17] MEDS ORDERED: LIDOCAINE 1% MPF 5 ML VIAL ONE (11:59)
[2021-06-17] MEDS ORDERED: propofoL 200 MG/20 ML VIAL IV ONE (11:59)
--- NOTE | 2021-06-17 14:43 | CON ---
Date of Consultation: 06/17/2021 Reason For Consultation: Upper GI bleed with hematemesis and melena for the past 2 days with anemia. History Of Present Illness: The patient is a 66-year-old female with history of diabetes type 2, hypertension, hyperlipidemia, stroke on February 01, 2020. The patient presented to the hospital with upper GI bleed, hematemesis, melena over the past 2 days. thinks this may be related to large pills, cholesterol pill that she takes and then he tells he thinks it get stuck when it goes down. Deny any hematochezia, hemoptysis, hematuria, dysuria, polydipsia, chest pain, short of breath, seizure, syncope. Past Medical History: Significant for diabetes, hypertension, hyperlipidemia, stroke. Home Medications: See list. Allergies: TO CODEINE. Social History: She is , 4 children. No tobacco. Alcohol occasional, social drinker. Family History: Father of stroke. Mother of breast cancer. Review of Systems: The patient has hematemesis, melena, but there has been no hemoptysis, epistaxis, hematochezia, hematuria, dysuria, polydipsia, chest pain, short of breath, fevers, chills, night sweats, heat or cold intolerance with a little bit of nausea. No depression or anxiety. The patient feels well. There is a positive attitude today. Physical Examination: Vital Signs: The patient is 5 feet 4 inches with a BMI of 21.9. General: She is a female, lying in bed, in no acute distress. HEENT: Normocephalic, atraumatic. Anicteric. Pupils equal, round, and reactive to light. Extraocular movements are intact. Oropharynx is clear. Neck: Supple. No masses. Respirations: Clear to auscultation bilaterally. Cardiac: Regular rhythm and rate. Abdomen: Positive bowel sounds. Soft, nontender, nondistended. No hepatosplenomegaly. Extremities: No clubbing, cyanosis, or edema. 2+ pulses. Neuro: Alert and oriented x3, though she did have a right hemiparesis of the right upper and right lower extremity. Sensation appears intact to light touch except for the right side. Laboratory Data: Patient has a white count of 7.0; hemoglobin of 8.6 down from 9.0 yesterday, it was 7.8 prior to that and had 1 unit of packed RBCs; MCV of 82; platelet count of 210; polys of 69%; lymphocytes 22%; monocytes 8%; eosinophils 1%. PT of 13.8, INR of 1.2, PTT of 28.6. Sodium 143, potassium 3.4, chloride 110, bicarb 27, BUN of 10, creatinine of 0.7, glucose 155, calcium of 8.1. Total bilirubin 0.3, direct bilirubin 0.1, AST of 7, ALT of 19, alkaline phosphatase of 85, total protein 6.0, albumin 2.7. Lipase 80. COVID PCR testing was negative. CT abdomen and pelvis revealed a 2.5 cm gallstone within the gallbladder. CT revealed a 2.5 cm gallstone in the gallbladder with no evidence of cholecystitis or biliary tree or pancreatic process. The gallstone is calcified in the gallbladder. Otherwise, negative CT of the abdomen and pelvis. Impression: 1. Upper gastrointestinal bleed with hematemesis and melena x2 days, on aspirin and Plavix for a history of stroke on February 01, 2020. The patient recently told it appears by neurologist that she should be able to come off the Plavix soon and will be on aspirin only. 2. Anemia. Hemoglobin down to 7.8 due to upper gastrointestinal bleeding. Need to start PPI therapy and serial H and H and transfuse p.r.n. with upper endoscopy. 3. Dysphagia. The large pill, especially large cholesterol pill that she takes daily. It appears as per . 4. History of diabetes, hypertension, hyperlipidemia, stroke on February 01, 2020. Recommendations: 1. Continue resuscitation. IV fluids. 2. Serial H and H and transfuse p.r.n. 3. PPI therapy. 4. EGD urgently. 5. Agree with holding aspirin and Plavix at this time. TRACEE/ALEX Voice ID: [id number] Report ID: [id number] VENKAT
[2021-06-17] MEDS ORDERED: ATORVASTATIN 80 MG TAB PO SCH (21:00)
[2021-06-17] MEDS: ATORVASTATIN 80 MG TAB PO SCH (21:22)
[2021-06-18] MEDS: NACHLORIDE 0.45% 1,000 ML IV SCH ×3 (02:00→22:00)
[2021-06-18 06:07] LABS: Absolute Lymphocytes (CBC) 1.2 K/uL (0.7-4.9); Basophils % 0.6 % (0-1.3); Hematocrit 24.7 % (36.0-45.0); Lymphocytes % 14.8 % (15.3-44.8); MPV 9.7 fL (7.6-11.3); RBC Red Blood Cell Count 2.97 M/uL (3.86-4.86)
[2021-06-18 06:15] LABS: Potassium 3.6 mmol/L (3.5-5.1)
[2021-06-18] MEDS: FLUOXETINE 10 MG CAP PO SCH (08:50)
[2021-06-18] MEDS: PANTOPRAZOLE INJ 80 MG in NA CHLORIDE 0.9% 250 ML IV SCH ×3 (08:51→21:13)
[2021-06-18] MEDS: glipiZIDE 5 MG TAB PO SCH (08:51)
[2021-06-18] MEDS: AMLODIPINE 5 MG TAB PO SCH (08:51)
[2021-06-18] MEDS ORDERED: GLIPIZIDE S.A. 5 MG TAB PO SCH (09:00)
[2021-06-18] MEDS: ATORVASTATIN 80 MG TAB PO SCH (21:13)
--- NOTE | 2021-06-18 21:13 | P.PN ---
Subjective Date of Service: 06/18/21 Chief Complaint: GI BLEED. Subjective: Improving SHE IS STABLE. HAS NO GI BLEED. NO BLACK STOOL. WAITING FOR EGD. TOLD ME THAT LIPITOR 80 MG IS A LARGE TABLET AND SHE CAN'T SWALLOW SO SHE BREAKS IN HALF AND STILL STRUGGLES TO SWALLOW AND HAS TO FORCE. THIS MAY HAVE DONE THE DAMAGE. SHE IS STABLE. NO CHANGES. Physical Examination - Vital Signs Temperature: 98.4 F Blood Pressure: 116/56 Pulse: 87 Respirations: 18 Pulse Ox (%): 98 - Physical Exam General: Oriented x3, Mild distress HEENT: Atraumatic, PERRLA, EOMI Neck: Supple, JVD not distended Respiratory: Clear to auscultation bilaterally, Normal air movement Cardiovascular: Regular rate/rhythm, Normal S1 S2 Gastrointestinal: Normal bowel sounds, No tenderness Musculoskeletal: No tenderness Integumentary: No rashes Neurological: Abnormal speech, Abnormal strength (R HEMIPLEGIA.) Lymphatics: No axilla or inguinal lymphadenopathy - Studies Medications List Reviewed: Yes Assessment And Plan - Current Problems (Diagnosis) (1) Upper GI bleed Current Visit: Yes Status: Acute Plan: IV PROTOIX CONSULT DR. CALI EGD SHE DOES NOT TAKE NSAIDS. PROGNOSIS GUARDED SHE HAS TO STOP HER STROKE THERAPY FOR NOW UNTIL CLEARED BY GI. HG STABLE CHECK DAILY . AND PATIENT KNOW THAT WITHOUT ANTIPLATELET THERAPY SHE CARRIES RISK FOR STROKE. LARGE STOMACH POLYP. NO OTHER SOURCES OF BLEEDING. DR. CALI TO DO REMOVAL IN AM OR DAY AFTER. 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 (6) Anemia due to GI blood loss Current Visit: Yes Status: Acute Plan: IV PROTONIX. PACKED RBCS TWO.
[2021-06-19] MEDS: PANTOPRAZOLE INJ 80 MG in NA CHLORIDE 0.9% 250 ML IV SCH ×3 (04:00→22:10)
[2021-06-19 06:04] LABS: Hematocrit 24.7 % (36.0-45.0); Lymphocytes % 22.2 % (15.3-44.8); MPV 9.7 fL (7.6-11.3); RBC Red Blood Cell Count 2.95 M/uL (3.86-4.86)
[2021-06-19 06:05] LABS: Absolute Lymphocytes (CBC) 1.8 K/uL (0.7-4.9); Basophils % 0.5 % (0-1.3)
[2021-06-19 06:23] LABS: Potassium 3.5 mmol/L (3.5-5.1)
[2021-06-19] MEDS: NACHLORIDE 0.45% 1,000 ML IV SCH ×2 (08:37→18:00)
[2021-06-19] MEDS: glipiZIDE 5 MG TAB PO SCH (08:39)
[2021-06-19] MEDS: AMLODIPINE 5 MG TAB PO SCH (08:40)
[2021-06-19] MEDS: FLUOXETINE 10 MG CAP PO SCH (08:42)
--- NOTE | 2021-06-19 12:48 | P.PN ---
Subjective Date of Service: 06/19/21 Chief Complaint: GI BLEED. Subjective: Improving SHE IS STABLE. HAS NO GI BLEED. NO BLACK STOOL. WAITING FOR EGD. TOLD ME THAT LIPITOR 80 MG IS A LARGE TABLET AND SHE CAN'T SWALLOW SO SHE BREAKS IN HALF AND STILL STRUGGLES TO SWALLOW AND HAS TO FORCE. THIS MAY HAVE DONE THE DAMAGE. SHE IS STABLE. NO CHANGES. SHE HAS NO MORE ACUTE BLEEDING. WE ARE WAITING FOR REMOVAL OF THE POLYP ABOUT 5 DAYS AFTER STOPPING ANTIPLATELET AGENTS. Physical Examination - Vital Signs Temperature: 98.3 F Blood Pressure: 120/58 Pulse: 68 Respirations: 15 Pulse Ox (%): 95 - Physical Exam General: Oriented x3, Mild distress HEENT: Atraumatic, PERRLA, EOMI Neck: Supple, JVD not distended Respiratory: Clear to auscultation bilaterally, Normal air movement Cardiovascular: Regular rate/rhythm, Normal S1 S2 Gastrointestinal: Normal bowel sounds, No tenderness Musculoskeletal: No tenderness Integumentary: No rashes Neurological: Abnormal speech, Abnormal strength (3-5 POWER R HEMIPLEGIA.) Lymphatics: No axilla or inguinal lymphadenopathy - Studies Medications List Reviewed: Yes Assessment And Plan - Current Problems (Diagnosis) (1) Upper GI bleed Current Visit: Yes Status: Acute Plan: IV PROTOIX CONSULT DR. CALI EGD SHE DOES NOT TAKE NSAIDS. PROGNOSIS GUARDED SHE HAS TO STOP HER STROKE THERAPY FOR NOW UNTIL CLEARED BY GI. HG STABLE CHECK DAILY . AND PATIENT KNOW THAT WITHOUT ANTIPLATELET THERAPY SHE CARRIES RISK FOR STROKE. LARGE STOMACH POLYP. NO OTHER SOURCES OF BLEEDING. DR. CALI TO DO REMOVAL IN AM OR DAY AFTER. SURGERY IN AM, ENDOSCOPIC. 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 (6) Anemia due to GI blood loss Current Visit: Yes Status: Acute Plan: IV PROTONIX. PACKED RBCS TWO. HG IS 8.1 IF STABLE WILL NOT NEED TRANSFUSION AGAIN
[2021-06-19] MEDS ORDERED: GLUCAGON 1 MG/VIAL IM PRN (16:42)
[2021-06-19] MEDS ORDERED: D50W 25 GM/50 ML SYRINGE IV PRN (16:42)
[2021-06-19] MEDS: INSULIN -REGULAR HUMAN 50 UNIT/0.5 ML ML IV SCH ×2 (16:54→21:30)
--- NOTE | 2021-06-19 17:47 | P.PN ---
Subjective Date of Service: 06/19/21 Chief Complaint: GI BLEED, hematemesis, melena Subjective: New changes (No GI bleeding reported off ASA/Plavix (h/o CVA 5-5-20) since admission. Tolerating CLs. EGD on hold due to busy OR schedule / staffing (varghese. anesthesia).) Physical Examination - Vital Signs Temperature: 98.3 F Blood Pressure: 120/58 Pulse: 68 Respirations: 15 Pulse Ox (%): 95 - Studies Medications List Reviewed: Yes Assessment And Plan - Current Problems (Diagnosis) (1) Hematemesis Current Visit: Yes Status: Acute (2) Melena Current Visit: Yes Status: Acute (3) Gastric polyp Current Visit: Yes Status: Acute (4) Anemia due to GI blood loss Current Visit: Yes Status: Acute (5) Upper GI bleed Current Visit: Yes Status: Acute - Plan REC: 1) EGD tomorrow to remove 3 cm gastric polyp (likely source of UGI bleed with ulceration and friability on ASA/Plavix before admission) 2) continue to hold ASA/Plavix (now day 5 off these medications)
[2021-06-19] MEDS: ATORVASTATIN 80 MG TAB PO SCH (21:28)
[2021-06-20] MEDS: PANTOPRAZOLE INJ 80 MG in NA CHLORIDE 0.9% 250 ML IV SCH ×2 (07:00→15:50)
[2021-06-20 07:09] LABS: Absolute Lymphocytes (CBC) 2.1 K/uL (0.7-4.9); Basophils % 0.5 % (0-1.3); Hematocrit 26.2 % (36.0-45.0); Lymphocytes % 20.8 % (15.3-44.8); MPV 10.3 fL (7.6-11.3); RBC Red Blood Cell Count 3.11 M/uL (3.86-4.86)
[2021-06-20 07:16] LABS: Potassium 3.6 mmol/L (3.5-5.1)
[2021-06-20] MEDS: INSULIN -REGULAR HUMAN 50 UNIT/0.5 ML ML IV SCH ×4 (07:30→21:32)
[2021-06-20] MEDS ORDERED: NA CHLORIDE 0.9% 1,000 ML ONE (07:47)
[2021-06-20] MEDS ORDERED: LIDOCAINE 1% MPF 5 ML VIAL ONE (09:12)
[2021-06-20] MEDS ORDERED: propofoL 200 MG/20 ML VIAL IV ONE ×2 (09:12)
[2021-06-20] MEDS ORDERED: EPINEPHRINE/PF 1 MG/ML AMP ONE (09:28)
--- NOTE | 2021-06-20 09:45 | ENDO RPT ---
[address], [address] EGD PROCEDURE REPORT EXAM DATE: 06/20/2021 PATIENT NAME: Abigail Schaeffer MR#: [id number] BIRTHDATE: 1955 ATTENDING: Vishal Tay Dr STATUS: outpatient TELEPHONE SEX WORKER: Dot Bowles RN and Debra Seth CST INDICATIONS: The patient is a 66 yr old Female here for an EGD due to upper G.I. bleeding, hematemesis, melenic bleeding, and anemia PROCEDURE PERFORMED: EGD with snare polypectomy and EGD for control of MEDICATIONS: Per Anesthesia. TOPICAL ANESTHETIC: none CONSENT: The patient understands the risks and benefits of the procedure and understands that these risks include, but are not limited to: sedation, allergic reaction, infection, perforation and/or bleeding. Alternative means of evaluation and treatment include, among others: physical exam, x-rays, and/or surgical intervention. The patient elects to proceed with this endoscopic procedure. DESCRIPTION OF PROCEDURE: During intra-op preparation period all mechanical medical equipment was checked for proper function. Hand hygiene and appropriate measures for infection prevention was taken. Procedure, possible complications, and alternatives including but not limited to the possibility of bleeding, perforation, tear, infection, sepsis, need for surgery, need for blood transfusion, and anesthesia related complications were explained to the patient. After the risks, benefits and alternatives of the procedure were thoroughly explained, Informed consent was verified, confirmed and timeout was successfully executed by the treatment team. The patient was placed in the left lateral position. The patient was anesthetized with topical anesthesia. Through the anesthetized oropharyngeal area, the scope was passed without any difficulty. The [id number] ([id number]) endoscope was introduced through the mouth and advanced to the second portion of the duodenum. Retroflexed views revealed a small hiatal hernia. The gastroscope was then slowly withdrawn and removed. A pedunculated polyp was found in the body of the stomach. ulcerated friable Sclerotherapy was performed with absolute alcohol injection. Endoclip placement at base of polyps, s/p 2 cc Epinephrine (1:10,000) injected into base polyp removed with Gaffney net. ADVERSE EVENTS: There were no complications. IMPRESSIONS: 1. 3 mm pedunculated polyp in the body of the stomach, s/p hot snare polypectomy with endoclip placement X2, 2 cc Epinephrine (1:10,000) 2. Small hiatal hernia RECOMMENDATIONS: discharge home tomorrow clear liquid diet today change Protonix to 40 mg IV qd REPEAT EXAM: Vishal Tay Dr eSigned: Vishal Tay Dr 06/20/2021 9:44 AM cc: CPT CODES: ICD9 CODES: PATIENT NAME: Abigail Schaeffer MR#: [id number]
[2021-06-20] MEDS: NA CHLORIDE 0.9% 1,000 ML ONE ×2 (09:51→10:05)
[2021-06-20] MEDS: glipiZIDE 5 MG TAB PO SCH (12:30)
[2021-06-20] MEDS: AMLODIPINE 5 MG TAB PO SCH (12:30)
[2021-06-20] MEDS: FLUOXETINE 10 MG CAP PO SCH (12:31)
[2021-06-20] MEDS: NACHLORIDE 0.45% 1,000 ML IV SCH (14:00)
[2021-06-20 15:24] VITALS: O2SAT 99
--- NOTE | 2021-06-20 21:20 | P.PN ---
Subjective Date of Service: 06/20/21 Chief Complaint: GI BLEED, hematemesis, melena Subjective: Improving SHE IS STABLE. HAS NO GI BLEED. NO BLACK STOOL. WAITING FOR EGD. TOLD ME THAT LIPITOR 80 MG IS A LARGE TABLET AND SHE CAN'T SWALLOW SO SHE BREAKS IN HALF AND STILL STRUGGLES TO SWALLOW AND HAS TO FORCE. THIS MAY HAVE DONE THE DAMAGE. SHE IS STABLE. NO CHANGES. SHE HAS NO MORE ACUTE BLEEDING. WE ARE WAITING FOR REMOVAL OF THE POLYP ABOUT 5 DAYS AFTER STOPPING ANTIPLATELET AGENTS. MAHAD IS STABLE. SHE HAD REMOVAL OF POLYP TODAY. IT WAS LARGE STOMACH POLYP AND DR. CALI TOOK IT OUT TODAY. Physical Examination - Vital Signs Temperature: 98.4 F Blood Pressure: 115/59 Pulse: 74 Respirations: 17 Pulse Ox (%): 95 - Physical Exam General: Oriented x3, Mild distress HEENT: Atraumatic, PERRLA, EOMI Neck: Supple, JVD not distended Respiratory: Clear to auscultation bilaterally, Normal air movement Cardiovascular: Regular rate/rhythm, Normal S1 S2 Gastrointestinal: Normal bowel sounds, No tenderness Musculoskeletal: No tenderness Integumentary: No rashes Neurological: Abnormal strength (RIGHT HEMIPLEGIA) Lymphatics: No axilla or inguinal lymphadenopathy - Studies Medications List Reviewed: Yes Assessment And Plan - Current Problems (Diagnosis) (1) Upper GI bleed Current Visit: Yes Status: Acute Plan: IV PROTOIX CONSULT DR. CALI EGD SHE DOES NOT TAKE NSAIDS. PROGNOSIS GUARDED SHE HAS TO STOP HER STROKE THERAPY FOR NOW UNTIL CLEARED BY GI. HG STABLE CHECK DAILY . AND PATIENT KNOW THAT WITHOUT ANTIPLATELET THERAPY SHE CARRIES RISK FOR STROKE. LARGE STOMACH POLYP. NO OTHER SOURCES OF BLEEDING. DR. CALI TO DO REMOVAL IN AM OR DAY AFTER. SURGERY IN AM, ENDOSCOPIC. DC IN AM IF ALL GOOD. 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 (6) Anemia due to GI blood loss Current Visit: Yes Status: Acute Plan: IV PROTONIX. PACKED RBCS TWO. HG IS 8.1 IF STABLE WILL NOT NEED TRANSFUSION AGAIN
[2021-06-20] MEDS: ATORVASTATIN 80 MG TAB PO SCH (21:25)
[2021-06-21] MEDS: PANTOPRAZOLE INJ 80 MG in NA CHLORIDE 0.9% 250 ML IV SCH (03:14)
[2021-06-21] MEDS ORDERED: PANTOPRAZOLE 40 MG INJ ONE (03:38)
[2021-06-21] MEDS: INSULIN -REGULAR HUMAN 50 UNIT/0.5 ML ML IV SCH (07:30)
[2021-06-21] MEDS ORDERED: ASPIRIN EC 81 MG TAB PO SCH (09:00)
[2021-06-21] MEDS ORDERED: SMZ./TMP. 800/160 MG TABLET PO SCH (09:00)
[2021-06-21] MEDS: AMLODIPINE 5 MG TAB PO SCH (11:17)
[2021-06-21] MEDS: glipiZIDE 5 MG TAB PO SCH (11:18)
[2021-06-21] MEDS: FLUOXETINE 10 MG CAP PO SCH (11:19)
[2021-06-21 13:00] VITALS: BP 133/60; TEMP 97.7
--- NOTE | 2021-06-21 21:43 | P.DS ---
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 SHE ALSO HAS COIL FOR BRAIN ANEURYSM [place] [address] MORALES ON L SIDE. THIS ALL HAPPENED AT THE SAME TIME. SHE COMES IN WITH UPPER GI BLEED AND MELENA FOR A DAY. DR. CALI HAS BEEN CONSULTED. PATIENT IS STABLE AND NOT BLEEDING AT PRESENT. Hospital Course: MAHAD CAME WITH GI BLEED. SHE HAD LARGE GASTRIC POLYP TAT WAS REMOVED BY DR CALI. PATHOLOGY PENDING . 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 I SENT HER ON BACTRIM DS AND WILL FU IN OFFICE. Vital Signs/Physical Exam: Temp Pulse Resp BP Pulse Ox 97.7 F 71 16 133/60 98 06/21/21 12:00 06/21/21 12:00 06/21/21 12:00 06/21/21 12:00 06/21/21 12:00 Laboratory Data at Discharge: WBC 10.30 K/uL (4.3-10.9) D 06/20/21 06:01 Hgb 8.8 g/dL (12.0-15.0) L 06/20/21 06:01 Hct 26.2 % (36.0-45.0) L 06/20/21 06:01 Plt Count 222 K/uL (152-406) 06/20/21 06:01 PT 13.8 SECONDS (9.5-12.5) H 06/16/21 09:52 INR 1.20 06/16/21 09:52 APTT 28.6 SECONDS (24.3-36.9) 06/16/21 09:52 APTT Cancelled 06/16/21 09:52 Sodium 142 mmol/L (136-145) 06/20/21 06:01 Potassium 3.6 mmol/L (3.5-5.1) 06/20/21 06:01 BUN 15 mg/dL (7-18) 06/20/21 06:01 Creatinine 0.92 mg/dL (0.55-1.3) 06/20/21 06:01 Glucose 125 mg/dL (74-106) H 06/20/21 06:01 Total Bilirubin 0.3 mg/dL (0.2-1.0) 06/16/21 05:07 AST 7 U/L (15-37) L 06/16/21 05:07 ALT 19 U/L (12-78) 06/16/21 05:07 Alkaline Phosphatase 85 U/L (45-117) 06/16/21 05:07 Lipase 80 U/L (73-393) 06/16/21 05:07 Home Medications: Amlodipine [Norvasc*] 5 mg PO DAILY 06/16/21 Aspirin [Aspirin EC 81 MG] 4 tab PO DAILY 06/16/21 Atorvastatin Calcium [Lipitor] 80 mg PO BEDTIME 06/16/21 Fluoxetine HCl [Prozac*] 10 mg PO DAILY 06/16/21 Glipizide [Glipizide ER] 2.5 mg PO DAILY 06/16/21 Pantoprazole [Protonix Tab] 40 mg PO DAILY #30 tab 06/21/21 Sulfamethoxazole/Trimethoprim [Bactrim Ds Tablet] 1 each PO BID 7 Days #14 tablet 06/21/21 New Medications: Sulfamethoxazole/Trimethoprim [Bactrim Ds Tablet] 1 each PO BID 7 Days #14 tablet Pantoprazole [Protonix Tab] 40 mg PO DAILY #30 tab Physician Discharge Instructions: PROBLEM: Upper GI Bleed, Anemia GOAL: Clear understanding of disease process INSTRUCTIONS: Okay to discharge home. Follow up with Dr Cali in 1 week. Follow up with Dr Burrows in 1 week. Take all medications as prescribed Your prescriptions were sent to [facility] in [place], take antibiotics with food Follow a soft bland diet until told otherwise by Dr Cali. Diet: GI soft diet Activity: [employer] Services Needed: None Name of Company: Date or Referral: IMMUNIZATION Influenza Vaccine Indicated: No Influenza Vaccine Given: Date Given: Pneumonia Vaccine Indicated: No Pneumonia Vaccine Given: Date Given: Followup: Jaguar Burrows MD [Primary Care Provider] - Vishal Cali MD [ASSOCIATE-ACTIVE - CAN ADMIT] -
== END 2021-06-21 12:45 | disposition home or self-care (01) | DRG 378 ==
LOC: ER 10:09 → ERHOLD 19:16 → 2ND 23:25
PROVIDERS: ADMIT Internal Medicine; ATTEND Internal Medicine
PROC: 0DB68ZX Excision of Stomach, Via Natural or Artificial Opening Endoscopic, Diagnostic (ICD-10-PCS; principal; 2021-06-20 08:00)
DX: K92.1 Melena (principal); D62 Acute posthemorrhagic anemia; I69.351 Hemiplegia and hemiparesis following cerebral infarction affecting right dominant side; R47.01 Aphasia; K92.0 Hematemesis; K31.7 Polyp of stomach and duodenum; K44.9 Diaphragmatic hernia without obstruction or gangrene; I10 Essential (primary) hypertension; E11.59 Type 2 diabetes mellitus with other circulatory complications; I80.8 Phlebitis and thrombophlebitis of other sites; B95.62 Methicillin resistant Staphylococcus aureus infection as the cause of diseases classified elsewhere; R13.10 Dysphagia, unspecified; Z20.822 Contact with and (suspected) exposure to COVID-19
CPT/HCPCS: 36415; 36430; 70450; 74177; 80048; 80076; 82565; 82947; 83690; 85014; 85018; 85025; 85610; 85730; 86850; 86900; 86901; 88305; 88312; 96365; 96366; 96375; 99284; C9113; J0171; J2405; J2704; J7030; J7050; J7120; J7799; P9016; P9035; Q9967; U0003